=== PATIENT | male | born 1955 | race Caucasian/White ===

== ENCOUNTER 2016-10-21 20:59 | Emergency (ER) | payer OTHER ==
[~2016-10-21] VITALS: Ht 167.6 cm; Wt 118.6 kg
[~2016-10-21 20:59] MED LIST: IBUP-1050 PO; OFLO0.3D4 OTR
[2016-10-21 21:02] VITALS: TEMP 36.9; Ht 167.6 cm; Wt 118.6 kg
[2016-10-21] MEDS ORDERED: ALBUT/IPRATROP 3MG/0.5MG NEB 3 ML VIAL INH STA (21:58)
--- NOTE | 2016-10-21 21:59 | EMERGENCY ROOM VISIT NOTE ---
History Report prepared by Griseldaibstephani: Wang Warren Under the Supervision of: Dr. Declan Sneed D.O. First contact with patient: 21:52 Chief Complaint: ILLNESS Stated Complaint: COUGH,CONGESTION,VOMITING, RIB PAIN History of Present Illness The patient is a 61 year old male who presents to the Emergency Room with complaints of persistent cough for the past five days. The cough produces green sputum. The patient has also been vomiting after coughing spells and he feels pain in his chest with coughing only. He he has not any changes in breathing. He felt warm all day today but did not record any specific temperatures. He denies diarrhea. The patient does not have history of pneumonia. He does not have any sick contacts. Source of History: patient Onset: five days ago Position: other (respiratory) Quality: other (productive cough) Timing: other (persistent) Associated Symptoms: + chest pain (from coughing), + vomiting (from coughing ), No SOB, No diarrhea Review of Systems See HPI for pertinent positives and negatives. A total of ten systems were reviewed and were otherwise negative. Past Medical & Surgical Medical Problems: (1) ASTHMA, UNSPECIFIED (2) Chronic serous OM (otitis media) (3) ESOPHAGEAL REFLUX (4) HYPERLIPIDEMIA NEC/NOS (5) HYPERTENSION NOS (6) LUMBAR DISC DISPLACEMENT (7) LUMBOSACRAL SPONDYLOSIS Family History Diabetes mellitus Hypertension Social History Smoking Status: Never Smoker Alcohol Use: none Drug Use: none Marital Status: Housing Status: lives with family Occupation Status: unemployed Current/Historical Medications Scheduled Ibuprofen (Advil), 400 MG PO PRN Ofloxacin (Otic) (Floxin Otic), 5 DROPS OTR BID Allergies Coded Allergies: No Known Allergies (Verified , 02/16/16) Physical Exam Vital Signs Date Time Temp Pulse Resp B/P Pulse Ox O2 Delivery O2 Flow Rate FiO2 10/21/16 22:10 66 20 176/91 93 Room Air 10/21/16 21:02 36.9 75 18 183/88 96 Room Air Physical Exam GENERAL: Awake, alert, well-appearing, in no distress HENT: Normocephalic, atraumatic. Oropharynx unremarkable. EYES: Normal conjunctiva. Sclera non-icteric. NECK: Supple. No nuchal rigidity. FROM. No JVD. RESPIRATORY: Clear to auscultation. CARDIAC: Regular rate, normal rhythm. Extremities warm and well perfused. Pulses equal. ABDOMEN: Soft, non-distended. No tenderness to palpation. No rebound or guarding. No masses. RECTAL: Deferred. MUSCULOSKELETAL: Chest examination reveals no tenderness. The back is symmetrical on inspection without obvious abnormality. There is no CVA tenderness to palpation. No joint edema. LOWER EXTREMITIES: Calves are equal size bilaterally and non-tender. No edema. No discoloration. NEURO: Normal sensorium. No sensory or motor deficits noted. SKIN: No rash or jaundice noted. Medical Decision & Procedures ER Provider Diagnostic Interpretation: X-ray: Per my interpretation, radiologist's interpretation. CHEST ONE VIEW PORTABLE CLINICAL HISTORY: sob dyspnea COMPARISON STUDY: 06/25/2015 FINDINGS: Mild cardia megaly. Lungs are clear. Diaphragms are smooth. IMPRESSION: Mild cardiac enlargement. Otherwise negative study Electronically signed by: Jesus Jessica M.D. 10/21/2016 10:21 PM Dictated Date/Time: 10/21/2016 10:20 PM Medications Administered Medications (Trade) Dose Ordered Sig/Elliot Route Start Time Stop Time Status Last Admin Dose Admin Albuterol/ Ipratropium (Duoneb) 3 ml NOW STAT INH 10/21/16 21:58 10/21/16 21:59 DC 10/21/16 21:58 3 ML ED Course 2153: The patient was evaluated in room A4b. A complete history and physical exam was performed. 2157: DuoNeb 3 ml INH. 2300: I reevaluated the patient. Discussed results and discharge instructions: He verbalized understanding and agreement. The patient is ready for discharge. Medical Decision Differential diagnosis includes bronchitis, upper respiratory tract infection, pneumonia, viral syndrome, allergies. Resting in no distress on repeat examination. Patient's chest x-rays negative for infiltrate. Patient is not hypoxic. I will treat the patient with albuterol MDI as well as Z-Torey. Impression Primary Impression: Acute bronchitis Scribe Attestation The scribe's documentation has been prepared under my direction and personally reviewed by me in its entirety. I confirm that the note above accurately reflects all work, treatment, procedures, and medical decision making performed by me. Departure Information Dispostion Home / Self-Care Prescriptions Azithromycin (Zithromax) 500 Mg Tab 500 MG PO DAILY, #6 TAB Prov: Declan Sneed, DO 10/21/16 Albuterol Hfa (VENTOLIN HFA) 200 Puffs/69951 Mcg Aers 2-4 PUFFS INH Q6H, #1 INHALER Prov: Declan Sneed, DO 10/21/16 Referrals Jesus Cornejo M.D. (PCP) Forms HOME CARE DOCUMENTATION FORM, IMPORTANT VISIT INFORMATION, WORK / SCHOOL INSTRUCTIONS Patient Instructions Bronchitis Acute, My [facility] Health Problem Qualifiers Primary Impression: Acute bronchitis Bronchitis organism: unspecified organism Qualified Codes: J20.9 - Acute bronchitis, unspecified
--- NOTE | 2016-10-21 22:22 | DIAGNOSTIC IMAGING REPORT ---
CHEST ONE VIEW PORTABLE CLINICAL HISTORY: sob dyspnea COMPARISON STUDY: 06/25/2015 FINDINGS: Mild cardia megaly. Lungs are clear. Diaphragms are smooth. IMPRESSION: Mild cardiac enlargement. Otherwise negative study Electronically signed by: Jesus Jessica M.D. 10/21/2016 10:21 PM Dictated Date/Time: 10/21/2016 10:20 PM
[2016-10-21] MEDS ORDERED: PERCOCET HOME PACK PO ONE (22:30)
[2016-10-21] MEDS ORDERED: VNTHFA/IN INH (22:51)
[2016-10-21] MEDS ORDERED: AZIT500T26 PO (22:51)
[2016-10-21 22:58] VITALS: BP 157/88; PULSE 79; O2SAT 95
[2016-10-22] MEDS ORDERED: TRIATAB3 PO (00:19)
[2016-10-22] MEDS ORDERED: CHOL1000 PO (00:21)
[2016-10-22] MEDS ORDERED: METH500T37 PO (00:22)
[2016-12-13] MEDS ORDERED: VITAMIN D3 PO (15:27)
[2017-02-20] MEDS ORDERED: ATOR-22 PO (00:18)
[2017-02-20] MEDS ORDERED: ASPI81TA28 PO (00:20)
[2017-02-20] MEDS ORDERED: LSN/10125 PO (15:27)
== END 2016-10-21 23:00 | disposition home or self-care (01) ==
LOC: C.EDB 21:00 → C.EDA 23:00
DX: J20.9 Acute bronchitis, unspecified (principal); J45.909 Unspecified asthma, uncomplicated; E78.5 Hyperlipidemia, unspecified; I10 Essential (primary) hypertension; Z83.3 Family history of diabetes mellitus; Z82.49 Family history of ischemic heart disease and other diseases of the circulatory system

== ENCOUNTER → 2016-12-14 | Day surgery (SDC) | payer OTHER ==
[2016-12-13 15:28] VITALS: Ht 167.6 cm; Wt 141.8 kg
[~2016-12-14] VITALS: Ht 167.6 cm; Wt 141.8 kg
[~2016-12-14] MED LIST changes: +AMOX875T3 PO; +ASPI81TA28 PO; +ATOR-22 PO; +CHOL1000 PO; -IBUP-1050 PO; +KETAMINE HCL INJ 50 MG/ML 10 ML VIAL ONE; +LIDOCAINE HCL 2% 2 ML VIAL (20MG/ML) ONE; +LSN/10125 PO; +METH500T37 PO; +MIDAZOLAM HCL 1 MG/ML 2ML VIAL ONE; -OFLO0.3D4 OTR; +PROPOFOL IV EMULSION 10 MG/ML 20 ML VIAL IV ONE; +PRVHFAIN INH; +SODIUM CHLORIDE 0.9% 500ML 500 ML IV ONE; +VITAMIN D3 PO
[2016-12-14 08:37] VITALS: TEMP 36.5
--- NOTE | 2016-12-14 08:56 | Endo History and Physical ---
History & Physical Date of Service: Dec 14, 2016. Chief Complaint: ABD PAIN Referring Physician: DR SARMIENTO History of Present Illness abd pain; family history of colon cancer Past Medical History Sleep Apnea Past Surgical History Hx Cardiac Surgery: Yes (CARDIAC CATH-NO STENT-2005) Hx Internal Defibrillator: No Hx Pacemaker: No Hx Abdominal Surgery: No Hx of Implantable Prosthesis: No Hx Post-Op Nausea and Vomiting: No Hx Cancer Surgery: No Hx Thoracic Surgery: No Hx Orthopedic: Yes (LUMBAR FUSION-2009, L KNEE SCOPE 2014) Hx Urinary Tract Surgery: No Family History Colon CA, Polyp Social History Smoking Status: Never Smoker Hx Substance Use: No Hx Alcohol Use: Yes (RARELY) Allergies Coded Allergies: No Known Allergies (Verified , 12/14/16) Current Medications Reported Home Medications Medications Dose Route/Sig Max Daily Dose Days Date Category [Vitamin D3] 1 Tab PO QAM 12/13/16 Reported Lisinopril/Hctz 10/12.5 Mg (HCTZ/Lisinopril) 1 Ea Tab 1 Tab PO QAM 12/13/16 Reported Robaxin (Methocarbamol) 500 Mg Tab 500 Mg PO TID PRN 10/22/16 Reported Aspirin Ec (Aspirin) 81 Mg Tab 81 Mg PO QAM 10/22/16 Reported Lipitor (Atorvastatin Calcium) 20 Mg Tab 20 Mg PO QAM 10/22/16 Reported Vital Signs Weight (Kilograms): 141.82 Height (Feet): 5 Height (Inches): 6 Date Time Temp Pulse Resp B/P (MAP) Pulse Ox O2 Delivery O2 Flow Rate FiO2 12/14/16 08:37 36.5 61 18 136/74 (94) 97 Room Air Physical Exam General Appearance: WD/WN, no apparent distress Assessment and Plan EGD and colonoscopy today
--- NOTE | 2016-12-14 09:21 | Discharge Instructions ---
Endoscopy Patient Instructions Date / Procedure(s) Performed Dec 14, 2016. Colonoscopy, EGD Allergy Information Coded Allergies: No Known Allergies (Verified , 12/14/16) Discharge Date / Findings Dec 14, 2016. normal EGD and colonoscopy Medication Instructions Stopped Medication(s): ASPIRIN 81MG-12/12/16 Restart Stopped Medication(s): OK to resume all home medications as above Provider Instructions Activity Restrictions - No exercising or heavy lifting for 24 hours. - Do not drink alcohol the day of the procedure. - Do not drive a car or operate machinery until the day after the procedure. - Do not make any important decisions or sign important papers in 24 hours after the procedure. Following Day: - Return to full activity which may include returning to work/school. Diet Start your diet with liquids and light foods (jello, soup, juice, toast). Then eat your usual diet if not nauseated. Treatment For Common After Affects For mild abdominal pain, bloating, or excessive gas: - Rest - Eat lightly - Lie on right side Follow-Up Information Follow-up with DR SARMIENTO as scheduled Anesthesia Information What You Should Know You have had a procedure that required some medicine to reduce anxiety and discomfort. This treatment is called moderate sedation. After receiving the treatment, you may be sleepy, but you will be able to breathe on your own. The effects of the treatment may last for several hours. Follow these instructions along with Activity/Diet recommendations noted above: * Do NOT do anything where dizziness or clumsiness would be dangerous. * Rest quietly at home today, then you can be up and about tomorrow. * Have a responsible person stay with you the rest of today. * You may have had an I.V. today. If so, you may take the dressing off later today. Recommendations Call your doctor if: * Trouble breathing * Continuous vomiting for more than 24 hours * Temperature above 101 degrees * Severe abdominal pain or bloating * Pain not relieved by pain medicine ordered * There is increased drainage or redness from any incision * A large amount of rectal bleeding greater than 2-3 tablespoons. (If you had a polyp/s removed or have hemorrhoids, a small amount of blood - from the rectum is to be expected.) * You have any unanswered questions or concerns. IN THE EVENT OF A SERIOUS EMERGENCY, GO TO THE NEAREST EMERGENCY ROOM Your discharge instructions were prepared by provider Mi Rich. Patient Instructions Signature Page Cole Canas Patient (or Guardian) Signature/Date: I have read and understand the instructions given to me by my caregivers. Caregiver/RN/Doctor Signature/Date: The above-named patient and/or guardian has received patient instructions on this date. + Original Patient Signature Page (only) stays with chart. Please make copy for patient.
--- NOTE | 2016-12-14 09:24 | GI REPORT ---
Procedure Date: 12/14/2016 9:01 AM Procedure: Upper GI endoscopy Indications: Upper abdominal pain Medicines: Propofol per Anesthesia Complications: No immediate complications. Estimated blood loss: None. Estimated Blood Loss: Estimated blood loss: none. Procedure: Pre-Anesthesia Assessment: - Prior to the procedure, a History and Physical was performed, and patient medications, allergies and sensitivities were reviewed. The patient's tolerance of previous anesthesia was reviewed. - The risks and benefits of the procedure and the sedation options and risks were discussed with the patient. All questions were answered and informed consent was obtained. - Patient identification and proposed procedure were verified prior to the procedure by the physician and the nurse. The procedure was verified in the pre-procedure area in the procedure room. - Mental Status Examination: alert and oriented. Airway Examination: normal oropharyngeal airway and neck mobility. Respiratory Examination: clear to auscultation. CV Examination: normal. Abdominal Examination: bowel sounds present, abdomen soft and non-tender, no masses or organomegaly noted. - ASA Grade Assessment: III - A patient with severe systemic disease. After obtaining informed consent, the endoscope was passed under direct vision. Throughout the procedure, the patient's blood pressure, pulse, and oxygen saturations were monitored continuously. The scope was introduced through the mouth, and advanced to the second part of duodenum. The upper GI endoscopy was accomplished without difficulty. The patient tolerated the procedure well. Findings: The esophagus was normal. The stomach was normal. The examined duodenum was normal. Impression: - Normal esophagus. - Normal stomach. - Normal examined duodenum. - No specimens collected. Recommendation: - Perform a colonoscopy today. Mi Rich D.O. Mi Rich, 12/14/2016 9:24:11 AM This report has been signed electronically. Note Initiated On: 12/14/2016 9:01 AM I attest to the content of the Intraoperative Record and orders documented therein, exceptions below
--- NOTE | 2016-12-14 09:26 | GI REPORT ---
Procedure Date: 12/14/2016 9:07 AM Procedure: Colonoscopy Indications: Screening in patient at increased risk: Colorectal cancer in father 60 or older, Incidental - Generalized abdominal pain Medicines: Propofol per Anesthesia Complications: No immediate complications. Estimated blood loss: None. Estimated Blood Loss: Estimated blood loss: none. Procedure: Pre-Anesthesia Assessment: - Prior to the procedure, a History and Physical was performed, and patient medications, allergies and sensitivities were reviewed. The patient's tolerance of previous anesthesia was reviewed. - The risks and benefits of the procedure and the sedation options and risks were discussed with the patient. All questions were answered and informed consent was obtained. - Patient identification and proposed procedure were verified prior to the procedure by the physician and the nurse. The procedure was verified in the pre-procedure area in the procedure room. - Mental Status Examination: alert and oriented. Airway Examination: normal oropharyngeal airway and neck mobility. Respiratory Examination: clear to auscultation. CV Examination: normal. Abdominal Examination: bowel sounds present, abdomen soft and non-tender, no masses or organomegaly noted. - ASA Grade Assessment: III - A patient with severe systemic disease. After I obtained informed consent, the scope was passed under direct vision. Throughout the procedure, the patient's blood pressure, pulse, and oxygen saturations were monitored continuously. The scope was introduced through the anus and advanced to the terminal ileum. The colonoscopy was performed without difficulty. The patient tolerated the procedure well. The quality of the bowel preparation was good. Findings: The perianal and digital rectal examinations were normal. Pertinent negatives include normal sphincter tone and no palpable rectal lesions. The terminal ileum appeared normal. The entire examined colon appeared normal on direct and retroflexion views. Impression: - The examined portion of the ileum was normal. - The entire examined colon is normal on direct and retroflexion views. - No specimens collected. Recommendation: - Repeat colonoscopy in 5 years for screening purposes. - Return to referring physician as previously scheduled. - Discharge patient to home. Mi Rich D.O. Mi Rich DO 12/14/2016 9:26:08 AM This report has been signed electronically. Note Initiated On: 12/14/2016 9:07 AM I attest to the content of the Intraoperative Record and orders documented therein, exceptions below
--- NOTE | 2016-12-14 09:30 | Anesthesiology Progress Note ---
Anesthesia Post Op Note Date & Time Dec 14, 2016 at 09:30 Vital Signs Pain Intensity: 0 Vital Signs Past 12 Hours Date Time Temp Pulse Resp B/P (MAP) Pulse Ox O2 Delivery O2 Flow Rate FiO2 12/14/16 08:37 36.5 61 18 136/74 (94) 97 Room Air Notes Mental Status: alert / awake / arousable, participated in evaluation Pt Amnestic to Procedure: Yes Nausea / Vomiting: adequately controlled Pain: adequately controlled Airway Patency, RR, SpO2: stable & adequate BP & HR: stable & adequate Hydration State: stable & adequate Anesthetic Complications: no major complications apparent
[2016-12-14 09:55] VITALS: BP 156/89; PULSE 57; O2SAT 97
== END | disposition home or self-care (01) ==
LOC: C.GI 07:37
PROVIDERS: ATTEND Internal Medicine
DX: Z12.11 Encounter for screening for malignant neoplasm of colon (principal); Z80.0 Family history of malignant neoplasm of digestive organs; R10.10 Upper abdominal pain, unspecified; G47.30 Sleep apnea, unspecified; Z79.82 Long term (current) use of aspirin; Z79.899 Other long term (current) drug therapy
CPT/HCPCS: 43235; G0105

== ENCOUNTER 2017-02-20 16:28 | Inpatient (IN) | payer OTHER ==
[~2017-02-20] VITALS: Ht 167.6 cm; Wt 136.3 kg
[~2017-02-20 16:28] MED LIST changes: -AMOX875T3 PO; -CHOL1000 PO; -KETAMINE HCL INJ 50 MG/ML 10 ML VIAL ONE; -LIDOCAINE HCL 2% 2 ML VIAL (20MG/ML) ONE; -MIDAZOLAM HCL 1 MG/ML 2ML VIAL ONE; -PROPOFOL IV EMULSION 10 MG/ML 20 ML VIAL IV ONE; -PRVHFAIN INH; -SODIUM CHLORIDE 0.9% 500ML 500 ML IV ONE
[2017-02-20] MEDS ORDERED: SODIUM CHLORIDE 0.9% 1000ML 1,000 ML IV STA ×2 (16:50→18:04)
[2017-02-20 17:11] LABS: BASO % 0.3 %; BASO ABS # 0.03 K/uL (0-0.2); COMPLETE YES; IG% 0.3 %; LYMPH % 12.9 %; LYMPH ABS # 1.35 K/uL (1.2-3.4); MEAN CELL VOLUME 88.4 fL (80-100); MEAN CORPUSCULAR HEMOGLOBIN 28.3 pg (25-34); MEAN PLATELET VOLUME 10.9 fL (7.4-10.4); MONO % 8.8 %; NEUT % 75.7 %; PLATELET COUNT 219 K/uL (130-400); RED BLOOD COUNT 5.09 M/uL (4.7-6.1)
[2017-02-20] MEDS ORDERED: PRVHFAIN INH (17:14)
[2017-02-20] MEDS ORDERED: CHOL1000 PO (17:14)
[2017-02-20] MEDS ORDERED: AMOX875T3 PO (17:14)
[2017-02-20 17:18] LABS: POINT OF CARE TROPONIN I < 0.030 ng/ml (0-0.045)
[2017-02-20 17:24] LABS: BUN/CREATININE RATIO 11.4 (10-20); CALCIUM 10.4 mg/dl (8.5-10.1); CREATININE 2.6 mg/dl (0.60-1.40); POTASSIUM 3.9 mmol/L (3.5-5.1)
[2017-02-20 17:27] LABS: ALB/GLOB RATIO 0.8 (0.9-2)
[2017-02-20] MEDS ORDERED: OPTIRAY 320 IV PRN (17:30)
--- NOTE | 2017-02-20 17:59 | DIAGNOSTIC IMAGING REPORT ---
CHEST ONE VIEW PORTABLE CLINICAL HISTORY: cough, sob dyspnea COMPARISON STUDY: 10/21/2016 FINDINGS: Mild stable cardiomegaly. Lungs are clear. Diaphragms are smooth. IMPRESSION: Mild stable cardia megaly. Lungs are clear. The above report was generated using voice recognition software. It may contain grammatical, syntax or spelling errors. Electronically signed by: Jesus Jessica M.D. 02/20/2017 5:57 PM Dictated Date/Time: 02/20/2017 5:57 PM
[2017-02-20] MEDS ORDERED: NITROGLYCERIN 0.4 MG SL PER TAB CHARGE SL PRN (20:30)
[2017-02-20] MEDS ORDERED: ONDANSETRON INJ 2 MG/ML 2 ML VIAL IV PRN (20:30)
[2017-02-20] MEDS ORDERED: ACETAMINOPHEN 325 MG TAB PO PRN (20:30)
--- NOTE | 2017-02-20 20:30 | History and Physical ---
History & Physical Date & Time of Service: Feb 20, 2017 at 20:30 . Chief Complaint: cough, chest pain, weakness . Primary Care Physician: Jesus Cornejo M.D. . History of Present Illness Source: patient, clinic records, hospital records 62 [address]O male followed by Dr[address] Cornejo. History of hypertension, dyslipidemia, and other problems noted below. 3 days prior to admission developed, fever, chills, frontal headache, pharyngitis, cough productive of yellow sputum. Seen at [facility] and prescribed amoxicillin. Pharyngitis and cough improved. [place] weaker today; experienced lightheadedness and some blurred vision. Also noted some bilateral anterior chest pain (migrated from one side to the other), not pleuritic in nature. 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 Experiencing some dyspnea on exertion. . Past Medical/Surgical History Medical Problems: (3) ESOPHAGEAL REFLUX Status: Chronic (4) HYPERLIPIDEMIA NEC/NOS Status: Chronic (5) HYPERTENSION NOS Status: Chronic (6) LUMBAR DISC DISPLACEMENT Status: Resolved (7) LUMBOSACRAL SPONDYLOSIS Status: Chronic . Family History FATHER Cancer MOTHER Colon cancer Coronary artery disease SISTER Coronary artery disease DAUGHTER Colon cancer Social History Smoking Status: Never Smoker Alcohol Use: occasionally Drug Use: none Marital Status: Housing status: lives alone Occupational Status: unemployed Immunizations History of Influenza Vaccine: No History of Tetanus Vaccine?: Yes History of Pneumococcal: No History of Hepatitis B Vaccine: No Multi-Drug Resistant Organisms History of MDRO: No Allergies Coded Allergies: No Known Allergies (Verified , 12/14/16) Home Medications Scheduled Amoxicillin (Amoxil), 875 MG PO BID Aspirin (Aspirin Ec), 81 MG PO QAM Atorvastatin (Lipitor), 20 MG PO QAM Cholecalciferol (Vitamin D3), 1,000 INTER.UNIT PO DAILY Hctz/Lisinopril (Lisinopril/Hctz 10/12.5 Mg), 1 TAB PO QAM Scheduled PRN Albuterol (Ventolin Hfa), 2 PUFFS INH Q4H PRN for Cough Review of Systems Constitutional: + fever, No weight loss Eyes: + problem reported (blurred vision today) ENT: + problem reported (per HPI) Respiratory: + problem reported (per HPI) Cardiovascular: + problem reported (per HPI) Abdomen: + nausea, No pain, No vomiting, No diarrhea, No GI bleeding Musculoskeletal: No joint pain, No muscle pain Genitourinary - Male: No hematuria, No dysuria Endocrine: + fatigue, No excessive thirst, No excessive urination Hematologic / Lymphatic: No abnormal bleeding/bruising Integumentary: No rash, No new/changing skin lesions Physical Exam Vital Signs Date Time Temp Pulse Resp B/P (MAP) Pulse Ox O2 Delivery O2 Flow Rate FiO2 02/20/17 19:58 71 20 122/63 98 Room Air 02/20/17 18:14 77 18 138/70 95 Room Air 02/20/17 16:40 96 Room Air 02/20/17 16:36 36.5 111 18 118/73 96 Room Air General Appearance: WD/WN, no apparent distress Head: normocephalic, atraumatic Eyes: normal inspection, PERRL, EOMI, sclerae normal, + pertinent finding ( conjunctivae pink) ENT: normal ENT inspection, hearing grossly normal, pharynx normal Neck: supple, no adenopathy, thyroid normal, no JVD, trachea midline Respiratory/Chest: no respiratory distress, no accessory muscle use, + wheezing (diffuse, mild) Cardiovascular: regular rate, rhythm, no edema, no gallop, no JVD, no murmur Abdomen/GI: normal bowel sounds, non tender, soft, no organomegaly, no pulsatile mass Extremities/Musculoskelatal: normal inspection, no calf tenderness, no pedal edema, + pertinent finding (motor strength upper and lower extremites intact) 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 (PERRL, EOMI, no facial palsy, no dysarthria), no motor/sensory deficits (motor strength upper and lower extremites intact), alert, normal mood/affect, oriented x 3 Skin: normal color, warm/dry, no rash Lymphatic: no adenopathy (cervical) Diagnostics Laboratory Results Results Past 24 Hours Test 02/20/17 17:00 Range/Units White Blood Count 10.50 4.8-10.8 K/uL Red Blood Count 5.09 4.7-6.1 M/uL Hemoglobin 14.4 14.0-18.0 g/dL Hematocrit 45.0 42-52 % Mean Corpuscular Volume 88.4 80-100 fL Mean Corpuscular Hemoglobin 28.3 25-34 pg Mean Corpuscular Hemoglobin Concent 32.0 32-36 g/dl Platelet Count 219 130-400 K/uL Mean Platelet Volume 10.9 7.4-10.4 fL Neutrophils (%) (Auto) 75.7 % Lymphocytes (%) (Auto) 12.9 % Monocytes (%) (Auto) 8.8 % Eosinophils (%) (Auto) 2.0 % Basophils (%) (Auto) 0.3 % Neutrophils # (Auto) 7.96 1.4-6.5 K/uL Lymphocytes # (Auto) 1.35 1.2-3.4 K/uL Monocytes # (Auto) 0.92 0.11-0.59 K/uL Eosinophils # (Auto) 0.21 0-0.5 K/uL Basophils # (Auto) 0.03 0-0.2 K/uL RDW Standard Deviation 43.8 36.4-46.3 fL RDW Coefficient of Variation 13.5 11.5-14.5 % Immature Granulocyte % (Auto) 0.3 % Immature Granulocyte # (Auto) 0.03 0.00-0.02 K/uL Bedside D-Dimer > 450 0-450 ng/mlFEU Sodium Level 138 136-145 mmol/L Potassium Level 3.9 3.5-5.1 mmol/L Chloride Level 101 98-107 mmol/L Carbon Dioxide Level 30 21-32 mmol/L Anion Gap 7.0 3-11 mmol/L Blood Urea Nitrogen 30 7-18 mg/dl Creatinine 2.60 0.60-1.40 mg/dl Est Creatinine Clear Calc Drug Dose 38.4 ml/min Estimated GFR () 29.3 Estimated GFR (Non- 25.3 BUN/Creatinine Ratio 11.4 10-20 Random Glucose 115 70-99 mg/dl Calcium Level 10.4 8.5-10.1 mg/dl Total Bilirubin 0.9 0.2-1 mg/dl Aspartate Amino Transf (AST/SGOT) 17 15-37 U/L Alanine Aminotransferase (ALT/SGPT) 19 12-78 U/L Alkaline Phosphatase 108 45-117 U/L Bedside Troponin I < 0.030 0-0.045 ng/ml Total Protein 8.4 6.4-8.2 gm/dl Albumin 3.8 3.4-5.0 gm/dl Globulin 4.6 2.5-4.0 gm/dl Albumin/Globulin Ratio 0.8 0.9-2 Influenza Type A Antigen Neg for Influ A NEG Influenza Type B Antigen Neg for Influ B NEG Diagnostic Radiology Chest x-ray reviewed by the undersigned and formally read by Radiology: CHEST ONE VIEW PORTABLE FINDINGS: Mild stable cardiomegaly. Lungs are clear. Diaphragms are smooth. IMPRESSION: Mild stable cardia megaly. Lungs are clear. The above report was generated using voice recognition software. It may contain grammatical, syntax or spelling errors. Electronically signed by: Jesus Jessica M.D. 02/20/2017 5:57 PM Dictated Date/Time: 02/20/2017 5:57 PM . EKG EKG performed at 16:[address] at 104 / minute, no acute ST or T-wave abnormalities. . Impression Assessment and Plan CHEST PAIN Suspect chest-wall musculoskeletal pain due to coughing. Serum troponin normal. No acute EKG changes. D-dimer is elevated as discussed below. Check serial troponin's and EKG's. Further evaluation / consultation as indicated if ongoing concerns. ELEVATED D-DIMER D-dimer elevated in ED. Oxygenating well; hemodynamically stable. Relatively low suspicion for pulmonary embolism, but will check venous duplex lower extremities and VQ scan. ACUTE KIDNEY INJURY Serum creatinine 2.6, compared to baseline of 1.2 on 01/26/16. Suspect acute kidney injury secondary to dehydration. IV fluids. Hold lisinopril / HCTZ. Avoid potential nephrotoxins. Follow. COUGH No infiltrates on chest x-ray. Probable sinobronchitis. Improving on amoxicillin; continue same. HYPERTENSION Hold lisinopril / HCTZ in light of JAI. Follow and titrate Rx. VTE PROPHYLAXIS SQ heparin. Ambulate. RESUSCITATION STATUS Discussed with patient. No living will. Full code. DISPOSITION Admit to Telemetry Unit. Anticipated length of stay > 2 midnights. Expected discharge to home. Family Medicine follow-up with Dr. Cornejo. . VTE Prophylaxis VTE Risk Assessment Done? Y/N: Yes Risk Level: Moderate Given or contraindicated: Unfractionated heparin SQ
[2017-02-20 22:20] VITALS: BP 136/76; PULSE 20; PULSE 68; TEMP 36.6; O2SAT 94; Ht 167.6 cm; Wt 136.3 kg
--- NOTE | 2017-02-20 22:41 | EMERGENCY ROOM VISIT NOTE ---
History First contact with patient: 16:40 Chief Complaint: COUGH Stated Complaint: ACUTE KIDNEY INJURY, CHEST PAIN Nursing Triage Summary: Pt c/o cough, SOB, chest spasms, since . Seen at [facility] and placed on Amoxicillin. Not improving. Blurred vision for the last 2 days, on and off. "It's when I get weak". Pt reports his sister was recently sick with the flu. History of Present Illness The patient is a 62 year old male who presents to the Emergency Room with complaints of cough, chest pain and weakness. The patient states that he has had cough and shortness of breath for the past 5 days. He was seen at an urgent care over the weekend and prescribed amoxicillin or his symptoms. He states that his symptoms are not improving. The chest pains have been intermittent and alternating from the left and right side. The patient states that he has felt generally weak over the past 2 days and has had a few episodes of blurred vision. The patient is short of breath. He states that his sister recently had the flu. The patient reports a history of hypertension but states he is otherwise healthy. He denies any history of diabetes or heart disease. He does not smoke. He denies any fevers/chills. No abdominal pain or urinary symptoms. Review of Systems A complete 10 point review of systems was reviewed with the patient with pertinent positives and negatives as per history of present illness. All else were negative. Past Medical/Surgical History Medical Problems: (1) Acute kidney injury (2) ASTHMA, UNSPECIFIED (3) Chest pain (4) Chronic serous OM (otitis media) (5) ESOPHAGEAL REFLUX (6) HYPERLIPIDEMIA NEC/NOS (7) HYPERTENSION NOS (8) LUMBAR DISC DISPLACEMENT (9) LUMBOSACRAL SPONDYLOSIS Family History Diabetes mellitus Hypertension Social History Smoking Status: Never Smoker Alcohol Use: none Drug Use: none Marital Status: Housing Status: lives with family Occupation Status: unemployed Current/Historical Medications Scheduled Amoxicillin (Amoxil), 875 MG PO BID Aspirin (Aspirin Ec), 81 MG PO QAM Atorvastatin (Lipitor), 20 MG PO QAM Cholecalciferol (Vitamin D3), 1,000 INTER.UNIT PO DAILY Hctz/Lisinopril (Lisinopril/Hctz 10/12.5 Mg), 1 TAB PO QAM Scheduled PRN Albuterol (Ventolin Hfa), 2 PUFFS INH Q4H PRN for Cough Physical Exam Vital Signs Date Time Temp Pulse Resp B/P (MAP) Pulse Ox O2 Delivery O2 Flow Rate FiO2 02/20/17 19:58 71 20 122/63 98 Room Air 02/20/17 18:14 77 18 138/70 95 Room Air 02/20/17 16:40 96 Room Air 02/20/17 16:36 36.5 111 18 118/73 96 Room Air Pain Rating (0-10): 0 Physical Exam VITALS: Vitals are noted on the nurse's note and reviewed by myself. Vital signs stable. GENERAL: This is a 62-year-old male, in no acute distress, nondiaphoretic, well- developed well-nourished. SKIN: The skin was without rashes, erythema, edema, or bruising. EARS: External auditory canals clear, tympanic membranes pearly mcgowan without erythema or effusion bilaterally. EYES: Pupils equal round and reactive to light and accommodation. MOUTH: Mucous membranes slightly dry. NECK: Supple without nuchal rigidity. No lymphadenopathy. HEART: Regular rate and rhythm without murmurs gallops or rubs. LUNGS: Clear to auscultation bilaterally without wheezes, rales or rhonchi. ABDOMEN: Positive bowel sounds x 4. Soft, nontender to palpation. NEURO: Patient was alert and oriented to person place and time. Medical Decision & Procedures ER Provider Diagnostic Interpretation: CHEST ONE VIEW PORTABLE CLINICAL HISTORY: cough, sob dyspnea COMPARISON STUDY: 10/21/2016 FINDINGS: Mild stable cardiomegaly. Lungs are clear. Diaphragms are smooth. IMPRESSION: Mild stable cardia megaly. Lungs are clear. Laboratory Results 02/20/17 17:00 Red Blood Count 5.09, Mean Corpuscular Volume 88.4, Mean Corpuscular Hemoglobin 28.3, Mean Corpuscular Hemoglobin Concent 32.0, Mean Platelet Volume 10.9, Neutrophils (%) (Auto) 75.7, Lymphocytes (%) (Auto) 12.9, Monocytes (%) (Auto) 8.8, Eosinophils (%) (Auto) 2.0, Basophils (%) (Auto) 0.3, Neutrophils # (Auto) 7.96, Lymphocytes # (Auto) 1.35, Monocytes # (Auto) 0.92, Eosinophils # (Auto) 0.21, Basophils # (Auto) 0.03 02/20/17 17:00 Test 02/20/17 17:00 White Blood Count 10.50 K/uL (4.8-10.8) Red Blood Count 5.09 M/uL (4.7-6.1) Hemoglobin 14.4 g/dL (14.0-18.0) Hematocrit 45.0 % (42-52) Mean Corpuscular Volume 88.4 fL (80-100) Mean Corpuscular Hemoglobin 28.3 pg (25-34) Mean Corpuscular Hemoglobin Concent 32.0 g/dl (32-36) Platelet Count 219 K/uL (130-400) Mean Platelet Volume 10.9 fL (7.4-10.4) Neutrophils (%) (Auto) 75.7 % Lymphocytes (%) (Auto) 12.9 % Monocytes (%) (Auto) 8.8 % Eosinophils (%) (Auto) 2.0 % Basophils (%) (Auto) 0.3 % Neutrophils # (Auto) 7.96 K/uL (1.4-6.5) Lymphocytes # (Auto) 1.35 K/uL (1.2-3.4) Monocytes # (Auto) 0.92 K/uL (0.11-0.59) Eosinophils # (Auto) 0.21 K/uL (0-0.5) Basophils # (Auto) 0.03 K/uL (0-0.2) RDW Standard Deviation 43.8 fL (36.4-46.3) RDW Coefficient of Variation 13.5 % (11.5-14.5) Immature Granulocyte % (Auto) 0.3 % Immature Granulocyte # (Auto) 0.03 K/uL (0.00-0.02) Bedside D-Dimer > 450 ng/mlFEU (0-450) Anion Gap 7.0 mmol/L (3-11) Est Creatinine Clear Calc Drug Dose 38.4 ml/min Estimated GFR () 29.3 Estimated GFR (Non- 25.3 BUN/Creatinine Ratio 11.4 (10-20) Calcium Level 10.4 mg/dl (8.5-10.1) Total Bilirubin 0.9 mg/dl (0.2-1) Aspartate Amino Transf (AST/SGOT) 17 U/L (15-37) Alanine Aminotransferase (ALT/SGPT) 19 U/L (12-78) Alkaline Phosphatase 108 U/L (45-117) Bedside Troponin I < 0.030 ng/ml (0-0.045) Total Protein 8.4 gm/dl (6.4-8.2) Albumin 3.8 gm/dl (3.4-5.0) Globulin 4.6 gm/dl (2.5-4.0) Albumin/Globulin Ratio 0.8 (0.9-2) Influenza Type A Antigen Neg for Influ A (NEG) Influenza Type B Antigen Neg for Influ B (NEG) Medications Administered Medications (Trade) Dose Ordered Sig/Elliot Route Start Time Stop Time Status Last Admin Dose Admin Sodium Chloride 1,000 ml @ 999 mls/hr Q1H1M STAT IV 02/20/17 16:50 02/20/17 17:50 DC 02/20/17 17:05 999 MLS/HR Sodium Chloride 1,000 ml @ 999 mls/hr Q1H1M STAT IV 02/20/17 18:04 02/20/17 19:04 DC 02/20/17 18:04 999 MLS/HR ED Course The patient was evaluated as above. Labs were drawn and IV access was obtained. Patient was reevaluated and findings were discussed. He is agreeable to admission. Case was discussed with the [facility] hospitalist, Dr. Manley. They agreed to evaluate the patient for admission. Medical Decision Differential diagnosis includes pneumonia, ACS, pulmonary embolism, influenza, sepsis, electrolyte abnormality, among others. The patient is a 62-year-old male who presents today complaining of chest pain, weakness and blurred vision. Labs revealed no leukocytosis or concerning anemia. Creatinine was found to be elevated at 2.6, which is new for the patient. His baseline creatinine is around 1. BUN was elevated as well. This may be secondary to dehydration, but I do feel the patient needs admission for IV hydration and evaluation of acute kidney injury. Influenza testing was negative. Chest x-ray was unremarkable. Vital signs were within normal limits throughout his stay. D-dimer was slightly elevated. CT of the chest was not performed due to the patient's elevated creatinine. [facility]. Medication Reconcilliation Current Medication List: was personally reviewed by me Blood Pressure Screening Patient's blood pressure: Normal blood pressure Impression Primary Impression: Acute kidney injury Departure Information Dispostion Still a Patient Condition FAIR Referrals Jesus Cornejo M.D. (PCP) Forms HOME CARE DOCUMENTATION FORM, IMPORTANT VISIT INFORMATION Patient Instructions [facility]
[2017-02-20 23:40] LABS: INR 1.1 (0.9-1.1); PROTHROMBIN TIME (PATIENT) 11.3 SECONDS (9.0-12.0)
[2017-02-21] VITALS: BP 136/76; PULSE 78; TEMP 36.6; O2SAT 98
[2017-02-21 04:00] VITALS: O2SAT 98
[2017-02-21 04:06] VITALS: BP 112/64; PULSE 62; TEMP 36.5; O2SAT 95
[2017-02-21] MEDS ORDERED: ALBUTEROL HFA 8 GM INHALER INH PRN (06:15)
[2017-02-21 06:34] LABS: BLOOD UREA NITROGEN 24 mg/dl (7-18); BUN/CREATININE RATIO 18.4 (10-20); CALCIUM 9.2 mg/dl (8.5-10.1); CARBON DIOXIDE 33 mmol/L (21-32); CHLORIDE 105 mmol/L (98-107); CHOLESTEROL 95 mg/dl (0-200); CHOLESTEROL/HDL RATIO 3.5; GLUCOSE 108 mg/dl (70-99); HDL CHOLESTEROL 27 mg/dl; LDL CHOLESTEROL CALCULATED 53 mg/dl; POTASSIUM 3.8 mmol/L (3.5-5.1); SODIUM 142 mmol/L (136-145); TRIGLYCERIDES 73 mg/dl (0-150); VERY LOW DENSITY LIPOPROT CALC 15 mg/dl
[2017-02-21 07:18] VITALS: BP 108/66; PULSE 53; TEMP 36.6; O2SAT 94
[2017-02-21] MEDS: NSS + 20MEQ KCL 1000ML 1,000 ML IV SCH ×2 (07:20→16:25)
[2017-02-21] MEDS: AMOXICILLIN 500 MG CAP PO SCH ×2 (07:44→16:25)
[2017-02-21] MEDS ORDERED: ATORVASTATIN 20 MG TAB PO SCH (09:00)
[2017-02-21] MEDS ORDERED: HEPARIN SOD 5000 UNIT/0.5 ML CARP SQ SCH (09:00)
[2017-02-21] MEDS ORDERED: CHOLECALCIFEROL 1000 INTER.UNIT TAB PO SCH (09:00)
[2017-02-21] MEDS ORDERED: ASPIRIN 81 MG ECTAB PO SCH (09:00)
--- NOTE | 2017-02-21 09:38 | DIAGNOSTIC IMAGING REPORT ---
VENOUS DOPPLER LWR EXT BILA CLINICAL HISTORY: 62 years-old Male presenting with chest pain, elevated D-dimer. TECHNIQUE: Real-time grayscale and color and spectral Doppler ultrasound imaging of the veins of the bilateral lower extremities was performed. Compression and augmentation were also utilized. COMPARISON: 01/02/2015. FINDINGS: Right: Common femoral vein: Patent. Femoral vein: Patent. Greater saphenous vein: Patent. Popliteal vein: Patent. Calf veins: Patent. Left: Common femoral vein: Patent. Femoral vein: Patent. Greater saphenous vein: Patent. Popliteal vein: Patent. Calf veins: Patent. Other: None. IMPRESSION: No evidence of deep venous thrombosis. Electronically signed by: William Fine M.D. 02/21/2017 9:37 AM Dictated Date/Time: 02/21/2017 9:36 AM
--- NOTE | 2017-02-21 10:25 | DIAGNOSTIC IMAGING REPORT ---
NUCLEAR PULMONARY VENTILATION/PERFUSION SCAN CLINICAL HISTORY: Atypical chest pain. Elevated d-dimer. COMPARISON STUDY: Chest x-ray dated 02/20/2017. TECHNIQUE: Initially, ventilation images of both lungs are obtained following the inhalation of 33 mCi of aerosolized technetium 99m DTPA. Subsequently, perfusion images of both lungs were obtained following the IV administration of 5.5 mCi of technetium 99m MAA. Ventilation and perfusion images were acquired in the anterior, posterior, and oblique projections. FINDINGS: A chest x-ray performed 02/20/2017 shows mild cardiac enlargement. The lungs are clear. The ventilation of both lungs is normal and symmetric. Inhaled tracer is noted in the stomach. No perfusion defects are identified on the perfusion imaging. IMPRESSION: Findings are considered low probability for pulmonary embolus. Electronically signed by: Monty Rubio M.D. 02/21/2017 10:24 AM Dictated Date/Time: 02/21/2017 10:23 AM
--- NOTE | 2017-02-21 11:36 | Cardiology Consultation ---
Cardiology Consultation Date of Consultation: Feb 21, 2017 History of Present Illness Cole Canas is a 62 year old male seen in cardiology consultation per the request of Dr Estrada for the evaluation of chest pain. The patient's PCP is Dr Cornejo. The patient describes recent upper respiratory symptoms that started approximately 4 days ago with symptoms of sore throat, productive cough, and chest congestion. He was seen in urgent care center and apparently was prescribed medications including an antibiotic course. He was on the highway driving a few miles away from the hospital when he developed right-sided chest discomfort yesterday. It waxed and waned, and also migrated to the left side for a short interval of time. He simply presented to the emergency room where EKG revealed sinus rhythm and no significant ST changes. Cardiac enzymes have been negative 3 thus far. And repeat EKG this morning reveals sinus bradycardia with no significant ST changes. Acute renal insufficiency was noted on presentation last evening with creatinine of 2.6 mg/dL which has improved to 1.3 milligrams per deciliter with IV fluids. Ventilation perfusion scan was considered low probability for pulmonary embolus per the radiology report. Lower extremity venous duplex was negative for DVT. Past Medical/Surgical History Problem List: Medical Problems: (1) ASTHMA, UNSPECIFIED (2) ESOPHAGEAL REFLUX (3) HYPERLIPIDEMIA NEC/NOS (4) HYPERTENSION NOS (5) LUMBAR DISC DISPLACEMENT (6) LUMBOSACRAL SPONDYLOSIS History Social History: Nonsmoker Family History: Describes history of cardiac disease in his mother and father had details not well known by patient and he states his sister has a history of a pacemaker defibrillator. Review Of Systems See above for pertinent positives & negatives. A total of 10 systems reviewed and were otherwise negative. Allergies Coded Allergies: No Known Allergies (Verified , 12/14/16) Medications Reported Home Medications Medications Dose Route/Sig Max Daily Dose Days Date Category Dose Instructions Amoxil (Amoxicillin) 875 Mg Tab 875 Mg PO BID 10 02/20/17 Reported PRESCRIBED 02/18/2017, TAKE DIRECTED UNTIL GONE Ventolin Hfa (Albuterol) 60 Puffs/5400 Mcg Aers 2 Puffs INH Q4H PRN 02/20/17 Reported Vitamin D3 (Cholecalciferol) 1,000 Unit Tab 1,000 Inter.unit PO DAILY 02/20/17 Reported Lisinopril/Hctz 03/15.5 Mg (HCTZ/Lisinopril) 1 Ea Tab 1 Tab PO QAM 12/13/16 Reported Aspirin Ec (Aspirin) 81 Mg Tab 81 Mg PO QAM 10/22/16 Reported Lipitor (Atorvastatin Calcium) 20 Mg Tab 20 Mg PO QAM 10/22/16 Reported Physical Exam Vital Signs (Last 8hrs): Last 8 Hrs Date Time Temp Pulse Resp B/P (MAP) Pulse Ox O2 Delivery O2 Flow Rate FiO2 02/21/17 08:00 Room Air 02/21/17 07:18 36.6 53 18 108/66 (80) 94 02/21/17 04:06 36.5 62 18 112/64 (80) 95 Room Air 02/21/17 04:00 98 Room Air CPAP General Appearance: Alert and Oriented x3. NAD. Head: Normocephalic Atraumatic. Eyes: PERRLA, EOMI, conjunctiva and sclera clear Neck: Supple. No carotid bruits noted. No JVD. No HJD. Respiratory: Breath sounds clear to auscultation bilaterally. No w/r/r. Cardiovascular: Reg rate and rhythm. S1 and S2 noted. No murmurs, rubs, gallops. PMI non displace. Abdomen: Normal bowel sounds, soft nontender. no abdominal bruits. Extremities: No edema, no clubbing or cyanosis. distal pulses 2/4 bilaterally. Neuro: No focal deficits. Psychiatric: Normal affect. Data Last 24 Hours Test 02/20/17 17:00 02/20/17 23:17 02/21/17 05:33 White Blood Count 10.50 K/uL Red Blood Count 5.09 M/uL Hemoglobin 14.4 g/dL Hematocrit 45.0 % Mean Corpuscular Volume 88.4 fL Mean Corpuscular Hemoglobin 28.3 pg Mean Corpuscular Hemoglobin Concent 32.0 g/dl Platelet Count 219 K/uL Mean Platelet Volume 10.9 fL Neutrophils (%) (Auto) 75.7 % Lymphocytes (%) (Auto) 12.9 % Monocytes (%) (Auto) 8.8 % Eosinophils (%) (Auto) 2.0 % Basophils (%) (Auto) 0.3 % Neutrophils # (Auto) 7.96 K/uL Lymphocytes # (Auto) 1.35 K/uL Monocytes # (Auto) 0.92 K/uL Eosinophils # (Auto) 0.21 K/uL Basophils # (Auto) 0.03 K/uL RDW Standard Deviation 43.8 fL RDW Coefficient of Variation 13.5 % Immature Granulocyte % (Auto) 0.3 % Immature Granulocyte # (Auto) 0.03 K/uL Bedside D-Dimer > 450 ng/mlFEU Sodium Level 138 mmol/L 142 mmol/L Potassium Level 3.9 mmol/L 3.8 mmol/L Chloride Level 101 mmol/L 105 mmol/L Carbon Dioxide Level 30 mmol/L 33 mmol/L Anion Gap 7.0 mmol/L 4.0 mmol/L Blood Urea Nitrogen 30 mg/dl 24 mg/dl Creatinine 2.60 mg/dl 1.30 mg/dl Est Creatinine Clear Calc Drug Dose 38.4 ml/min 77.3 ml/min Estimated GFR () 29.3 67.8 Estimated GFR (Non- 25.3 58.5 BUN/Creatinine Ratio 11.4 18.4 Random Glucose 115 mg/dl 108 mg/dl Calcium Level 10.4 mg/dl 9.2 mg/dl Total Bilirubin 0.9 mg/dl Aspartate Amino Transf (AST/SGOT) 17 U/L Alanine Aminotransferase (ALT/SGPT) 19 U/L Alkaline Phosphatase 108 U/L Bedside Troponin I < 0.030 ng/ml Total Protein 8.4 gm/dl Albumin 3.8 gm/dl Globulin 4.6 gm/dl Albumin/Globulin Ratio 0.8 Influenza Type A Antigen Neg for Influ A Influenza Type B Antigen Neg for Influ B Prothrombin Time 11.3 SECONDS Prothromb Time International Ratio 1.1 Activated Partial Thromboplast Time 25.7 SECONDS Partial Thromboplastin Ratio 1.0 Troponin I < 0.015 ng/ml < 0.015 ng/ml Triglycerides Level 73 mg/dl Cholesterol Level 95 mg/dl HDL Cholesterol 27 mg/dl LDL Cholesterol, Calculated 53 mg/dl VLDL Cholesterol, Calculated 15 mg/dl Cholesterol/HDL Ratio 3.5 EKG findings as outlined above Assessment & Plan Impression: 62-year-old male 1. Chest discomfort, atypical for angina, however patient does have significant underlying cardiac risk factors of age, male sex, hypertension, dyslipidemia, and obesity. 2. History of obstructive sleep apnea for which she uses CPAP. 3. Family history ischemic heart disease Recommendations: The patient's presentation is consistent with musculoskeletal pain/chest wall pain related to his cough, however he does have significant cardiac risk factors. He is very concerned especially given his family history. Given his weight and decreased baseline activity tolerance, would recommend proceeding with dobutamine stress echocardiogram for further evaluation. I'm going to hold off on his lunch until the test is completed. Patient was agreeable.
[2017-02-21] MEDS ORDERED: DOBUTamine 500MG / 250ML D5W ONE (14:09)
[2017-02-21] MEDS ORDERED: METOPROLOL TARTRATE 1 MG/ML VIAL ONE (14:09)
[2017-02-21] MEDS ORDERED: ATROPINE SULFATE 0.1 MG/ML 5ML SYR ONE (14:09)
[2017-02-21] MEDS ORDERED: PERFLUTREN LIPID MICROSPHERE (DEFINITY) IV ONE (14:57)
--- NOTE | 2017-02-21 14:59 | Cardiology Progress Note ---
Cardiology Progress Note Date of Service Feb 21, 2017. Cardiology Progress Note Preliminary dobutamine stress echo report: full report to follow STRESS STUDY: Normal pharmacologic stress echocardiogram. No echocardiographic or ECG evidence of myocardial ischemia having achieved heart rate adequate for diagnostic purposes. Not symptoms suggestive of angina were induced. The heart rate and blood pressure responses to pharmacologic stress were normal. RESTNG STUDY: There is mild concentric left ventricular hypertrophy. The LV Ejection Fraction = 55-60%. Aortic valve sclerosis mild, without significant aortic valvular stenosis. Otherwise , there is no significant valvular heart disease. Recommendations: Non cardiac chest pain, likely chest wall pain from URI / cough. Continue home medications including ASA, atorvastatin, lisinopril / HCTZ. Stable for DC to home from cardiology perspective.
--- NOTE | 2017-02-21 14:59 | Progress Note ---
Internal Med Progress Note Date of Service: Feb 21, 2017. Provider Documentation: SUBJECTIVE: patient denies chest pain today. was admitted yesterday after 4 episodes of pain beneath right and left breast. pulmonary embolism and DVT ruled out. however because of cardiovascular risk factors, cardiology is to do dobutamine stress test. OBJECTIVE: General Appearance: no apparent distress, breathing on room air Head: normocephalic, atraumatic Eyes: normal inspection, PERRL ENT: normal ENT inspection, hearing grossly normal, pharynx normal Neck: supple, no adenopathy, thyroid normal, no JVD, trachea midline Respiratory/Chest: no respiratory distress, no accessory muscle use, no wheezing Cardiovascular: regular rate, rhythm, no edema, no gallop, no JVD, no murmur Abdomen/GI: normal bowel sounds, non tender, soft, no organomegaly, no pulsatile mass Extremities/Musculoskelatal: normal inspection, no calf tenderness, no pedal edema, 5/5 strength of extremities Neurologic/Psych: alert, normal mood/affect, oriented x 3, no neurological deficits Skin: normal color, warm/dry, no rash ASSESSMENT & PLAN: CHEST PAIN Serum troponin normal. No acute EKG changes. D-dimer is elevated as discussed below. may be musculoskeletal chest pain given recent history of coughing risk stratification for coronary artery disease with dobutamine stress echo cardiology service following the patient ELEVATED D-DIMER D-dimer elevated in ED. Oxygenating well; hemodynamically stable, on room air Venous duplex lower extremities with no DVT and VQ scan with no pulmonary embolism. ACUTE KIDNEY INJURY Serum creatinine 2.6 on admission compared to baseline of 1.2 on 01/26/16. Acute kidney injury secondary to dehydration, IV fluids have decreased creatinine to 1.3. may restart home dose lisinopril / HCTZ. Avoid potential nephrotoxins. COUGH No infiltrates on chest x-ray. likely sinobronchitis, continue home dosed amoxicillin HYPERTENSION JAI resolves and can restart lisinopril / HCTZ VTE PROPHYLAXIS SQ heparin. Ambulate. RESUSCITATION STATUS No living will. Full code. DISPOSITION will need Family Medicine follow-up with Dr. Cornejo when medically cleared Vital Signs: Date Time Temp Pulse Resp B/P (MAP) Pulse Ox O2 Delivery O2 Flow Rate FiO2 02/21/17 12:00 Room Air 02/21/17 08:00 Room Air 02/21/17 07:18 36.6 53 18 108/66 (80) 94 02/21/17 04:06 36.5 62 18 112/64 (80) 95 Room Air 02/21/17 04:00 98 Room Air CPAP 02/21/17 00:00 78 98 21 02/21/17 00:00 36.6 78 18 136/76 (96) 98 Room Air 02/21/17 00:00 98 Room Air CPAP 02/20/17 22:20 36.6 68 18 136/76 94 Room Air 02/20/17 21:13 74 22 137/63 94 02/20/17 19:58 71 20 122/63 98 Room Air 02/20/17 18:14 77 18 138/70 95 Room Air 02/20/17 16:40 96 Room Air 02/20/17 16:36 36.5 111 18 118/73 96 Room Air Lab Results: Results Past 24 Hours Test 02/20/17 17:00 02/20/17 23:17 02/21/17 05:33 Range/Units White Blood Count 10.50 4.8-10.8 K/uL Red Blood Count 5.09 4.7-6.1 M/uL Hemoglobin 14.4 14.0-18.0 g/dL Hematocrit 45.0 42-52 % Mean Corpuscular Volume 88.4 80-100 fL Mean Corpuscular Hemoglobin 28.3 25-34 pg Mean Corpuscular Hemoglobin Concent 32.0 32-36 g/dl Platelet Count 219 130-400 K/uL Mean Platelet Volume 10.9 7.4-10.4 fL Neutrophils (%) (Auto) 75.7 % Lymphocytes (%) (Auto) 12.9 % Monocytes (%) (Auto) 8.8 % Eosinophils (%) (Auto) 2.0 % Basophils (%) (Auto) 0.3 % Neutrophils # (Auto) 7.96 1.4-6.5 K/uL Lymphocytes # (Auto) 1.35 1.2-3.4 K/uL Monocytes # (Auto) 0.92 0.11-0.59 K/uL Eosinophils # (Auto) 0.21 0-0.5 K/uL Basophils # (Auto) 0.03 0-0.2 K/uL RDW Standard Deviation 43.8 36.4-46.3 fL RDW Coefficient of Variation 13.5 11.5-14.5 % Immature Granulocyte % (Auto) 0.3 % Immature Granulocyte # (Auto) 0.03 0.00-0.02 K/uL Bedside D-Dimer > 450 0-450 ng/mlFEU Sodium Level 138 142 136-145 mmol/L Potassium Level 3.9 3.8 3.5-5.1 mmol/L Chloride Level 101 105 98-107 mmol/L Carbon Dioxide Level 30 33 21-32 mmol/L Anion Gap 7.0 4.0 3-11 mmol/L Blood Urea Nitrogen 30 24 7-18 mg/dl Creatinine 2.60 1.30 0.60-1.40 mg/dl Est Creatinine Clear Calc Drug Dose 38.4 77.3 ml/min Estimated GFR () 29.3 67.8 Estimated GFR (Non- 25.3 58.5 BUN/Creatinine Ratio 11.4 18.4 10-20 Random Glucose 115 108 70-99 mg/dl Calcium Level 10.4 9.2 8.5-10.1 mg/dl Total Bilirubin 0.9 0.2-1 mg/dl Aspartate Amino Transf (AST/SGOT) 17 15-37 U/L Alanine Aminotransferase (ALT/SGPT) 19 12-78 U/L Alkaline Phosphatase 108 45-117 U/L Bedside Troponin I < 0.030 0-0.045 ng/ml Total Protein 8.4 6.4-8.2 gm/dl Albumin 3.8 3.4-5.0 gm/dl Globulin 4.6 2.5-4.0 gm/dl Albumin/Globulin Ratio 0.8 0.9-2 Influenza Type A Antigen Neg for Influ A NEG Influenza Type B Antigen Neg for Influ B NEG Prothrombin Time 11.3 9.0-12.0 SECONDS Prothromb Time International Ratio 1.1 0.9-1.1 Activated Partial Thromboplast Time 25.7 21.0-31.0 SECONDS Partial Thromboplastin Ratio 1.0 Troponin I < 0.015 < 0.015 0-0.045 ng/ml Triglycerides Level 73 0-150 mg/dl Cholesterol Level 95 0-200 mg/dl HDL Cholesterol 27 mg/dl LDL Cholesterol, Calculated 53 mg/dl VLDL Cholesterol, Calculated 15 mg/dl Cholesterol/HDL Ratio 3.5 Hepatitis C Antibody Screen NEG NEG
--- NOTE | 2017-02-21 15:15 | DOBUTAMINE ECHO ---
*NOTICE TO RECEIVING CONSTITUTION PARTY AGENCY This information is strictly Confidential and protected under [place] law. [place] law prohibits you from making any further disclosure of this information unless further disclosure is expressly permitted by the written consent of the person to whom it pertains or is authorized by law. A general authorization for the release of medical or other information is not sufficient for this purpose. Hospital accepts no responsibility if the information is made available to any other person, INCLUDING THE PATIENT. Interpretation Summary * Name: NOIEL PATEL Study Date: 02/21/2017 01:02 PM BP: 135/74 mmHg * Patient Location: [facility]\S\N281\S\2 HR: 60 * : 1955 (M/d/yyyy) Gender: Male Height: 66 in * Age: 62 yrs Ethnicity: [place] Weight: 300 lb * Ordering Physician: Gorge Aragon * Referring Physician: Self, Referred * Performed By: Carolina Cardozo RCS * * Reason For Study: Chest Pain * BSA: 2.4 m2 * -- Conclusions -- * The study was technically adequate. * STRESS STUDY: Normal pharmacologic stress echocardiogram. * No echocardiographic or ECG evidence of myocardial ischemia having achieved heart rate adequate for diagnostic purposes. * Not symptoms suggestive of angina were induced. * The heart rate and blood pressure responses to pharmacologic stress were normal. * RESTNG STUDY: * There is mild concentric left ventricular hypertrophy. * The LV Ejection Fraction = 55-60%. * Aortic valve sclerosis mild, without significant aortic valvular stenosis. * Othwerwise , there is no significant valvular heart disease. Procedure Details * DOBUTAMINE ECHO, CPT#04895 Left Ventricle * The left ventricle is normal in size. * There is mild concentric left ventricular hypertrophy. * Left ventricular systolic function is normal. * Ejection Fraction = 55-60%. * The left ventricular wall motion is normal at rest. * The left ventricular ejection fraction increases normally with stress. The left ventricular end-systolic cavity size reduces post-stress (normal response). The left ventricular wall motion with stress is normal. Right Ventricle * The right ventricle is normal in size and function. Atria * The left atrial size is normal. * Right atrial size is normal. * No ASD detected; PFO is not assessed. Mitral Valve * The mitral valve is normal. * There is no mitral valve stenosis. * Significant mitral regurgitation is absent. Tricuspid Valve * The tricuspid valve is normal. * There is no tricuspid stenosis. * Significant tricuspid regurgitation is absent. * Doppler findings do not suggest pulmonary hypertension. Aortic Valve * The aortic valve is trileaflet. * Aortic valve sclerosis mild, without significant aortic valvular stenosis. * Aortic stenosis is absent. * There is no significant aortic regurgitation. Pulmonic Valve * The pulmonary valve is not well seen, but the Doppler examination is normal without significant regurgitation or stenosis. Great Vessels * The aortic root and proximal ascending aorta are normal sized. Pericardium * There is no pericardial effusion. Stress Parameters * Normal baseline electrocardiogram. * The stress ECG response was normal * One isolated PVC was noted with dobutamine infusion. * The stress portion of this study was personally supervised by the undersigned interpreting physician. * Rest heart rate was '60' BPM. * Rest blood pressure was '135/74' * Maximum heart rate achieved was 136 bpm. * Maximum heart rate was 86 % of maximum age-predicted heart rate. * Maximum blood pressure was '173/66' * Maximum Dobutamine infusion rate was '40' mcg/kg/min. * Dobutamine infusion was terminated due to achieving target heart rate * A total of 5 mg of IV Metoprolol was administered to reverse Dobutamine-induced tachycardia. * The patient did not exhibit any symptoms during drug infusion. * Normal blood pressure response to exercise. Left Ventricular Diastolic Function * Diastolic dysfunction, Grade II (pseudonormalization pattern). MMode 2D Measurements and Calculations IVSd 1.1 cm IVSs 1.3 cm LVIDd 5.8 cm LVIDs 3.9 cm LVPWd 1.1 cm LVPWs 1.3 cm IVS/LVPW 0.97 FS 33.0 % EDV(Teich) 168.8 ml ESV(Teich) 66.2 ml EF(Teich) 60.8 % EDV(cubed) 198.6 ml ESV(cubed) 59.6 ml EF(cubed) 70.0 % % IVS thick 25.1 % % LVPW thick 19.3 % LV mass(C)d 263.5 grams LV mass(C)dI 110.9 grams/m\S\2 LV mass(C)s 186.7 grams LV mass(C)sI 78.6 grams/m\S\2 SV(Teich) 102.6 ml SI(Teich) 43.2 ml/m\S\2 SV(cubed) 138.9 ml SI(cubed) 58.5 ml/m\S\2 Ao root diam 4.0 cm Ao root area 12.3 cm\S\2 ACS 1.9 cm LA dimension 4.1 cm asc Aorta Diam 3.2 cm LA/Ao 1.0 Doppler Measurements and Calculations MV E max juventino 92.7 cm/sec MV A max juventino 71.7 cm/sec MV E/A 1.3 MV P1/2t max juventino 101.4 cm/sec MV P1/2t 87.5 msec MVA(P1/2t) 2.5 cm\S\2 MV dec slope 339.2 cm/sec\S\2 MV dec time 0.27 sec Ao V2 max 127.6 cm/sec Ao max PG 6.5 mmHg Ao max PG (full) 3.3 mmHg LV V1 max PG 3.3 mmHg LV V1 max 90.2 cm/sec PA V2 max 100.9 cm/sec PA max PG 4.1 mmHg TR max juventino 227.7 cm/sec
--- NOTE | 2017-02-21 16:51 | Discharge Instructions ---
Discharge Instructions Date of Service Feb 21, 2017. Admission Reason for Admission: Acute Kidney Injury, Chest Pain Discharge Discharge Diagnosis / Problem: atypical chest pain Discharge Goals Goal(s): Decrease discomfort Activity Recommendations Activity Limitations: resume your previous activity Lifting Limitations: gradually increase as tolerated Exercise/Sports Limitations: gradually increase as tolerated Shower/Bathe: no limitations . Instructions / Follow-Up Instructions / Follow-Up Patient was evaluated for Non cardiac chest pain, likely chest wall pain from URI / cough Patient was not found to have pulmonary embolism in the V/Q scan, was not found to have deep vein thrombosis in ultrasound of lower extremities, and was not found to be at risk for coronary artery disease based on dobutamine echo test Continue home medications including ASA, atorvastatin, lisinopril / HCTZ Follow up with your primary medical doctor Dr. Jenkins Current Hospital Diet Patient's current hospital diet: AHA Diet (Heart Healthy) Discharge Diet Recommended Diet: Regular Diet Pending Studies Studies pending at discharge: no Laboratory Results Lipid Panel Test 02/21/17 05:33 Range/Units Triglycerides Level 73 0-150 mg/dl Cholesterol Level 95 0-200 mg/dl HDL Cholesterol 27 mg/dl Cholesterol/HDL Ratio 3.5 LDL Cholesterol, Calculated 53 mg/dl Medical Emergencies . Who to Call and When: Medical Emergencies: If at any time you feel your situation is an emergency, please call 911 immediately. . Non-Emergent Contact Non-Emergency issues call your: Primary Care Provider Call Non-Emergent contact if: your pain is not controlled . . "Provider Documentation" section prepared by Sebastian Estrada. . VTE Core Measure Inpt VTE Proph given/why not?: Unfractionated heparin SQ
--- NOTE | 2017-02-21 16:57 | Discharge Summary ---
Discharge Summary Date of Service Feb 21, 2017. Discharge Summary Admission Date: Feb 20, 2017 at 20:28 Discharge Date: Feb 21, 2017 Discharge Disposition: Home Principal Diagnosis: atypical chest pain, non cardiac chest pain, musculoskeletal pain vs pleurodynia from upper respiratory infection Secondary Diagnoses/Problems: acute kidney injury resolved with IV fluids Procedures: V/Q scan/ ultrasound lower extremity, dobutamine stress test Consultations: cardiology Medication Reconciliation Continued Medications: Albuterol (Ventolin Hfa) 60 Puffs/5400 Mcg Aers 2 PUFFS INH Q4H PRN for Cough Amoxicillin (Amoxil) 875 Mg Tab 875 MG PO BID for 10 Days, #20 TAB PRESCRIBED 02/18/2017, TAKE DIRECTED UNTIL GONE Aspirin (Aspirin Ec) 81 Mg Tab 81 MG PO QAM Atorvastatin (Lipitor) 20 Mg Tab 20 MG PO QAM, TAB Cholecalciferol (Vitamin D3) 1,000 Unit Tab 1000 INTER.UNIT PO DAILY, TAB Hctz/Lisinopril (Lisinopril/Hctz 10/12.5 Mg) 1 Ea Tab 1 TAB PO QAM, TAB Admission Information HPI (per Admitting provider): 62 YO male followed by Dr. Cornejo. History of hypertension, dyslipidemia, and other problems noted below. 3 days prior to admission developed, fever, chills, frontal headache, pharyngitis, cough productive of yellow sputum. Seen at [facility] and prescribed amoxicillin. Pharyngitis and cough improved. Caraway weaker today; experienced lightheadedness and some blurred vision. Also noted some bilateral anterior chest pain (migrated from one side to the other), not pleuritic in nature. 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 Experiencing some dyspnea on exertion. . Physical Exam (per Admitting): General Appearance: WD/WN, no apparent distress Head: normocephalic, atraumatic Eyes: normal inspection, PERRL, EOMI, sclerae normal, + pertinent finding ( conjunctivae pink) ENT: normal ENT inspection, hearing grossly normal, pharynx normal Neck: supple, no adenopathy, thyroid normal, no JVD, trachea midline Respiratory/Chest: no respiratory distress, no accessory muscle use, + wheezing (diffuse, mild) Cardiovascular: regular rate, rhythm, no edema, no gallop, no JVD, no murmur Abdomen/GI: normal bowel sounds, non tender, soft, no organomegaly, no pulsatile mass Extremities/Musculoskelatal: normal inspection, no calf tenderness, no pedal edema, + pertinent finding (motor strength upper and lower extremites intact) Neurologic/Psych: chemical processor II-XII nml as tested (PERRL, EOMI, no facial palsy, no dysarthria), no motor/sensory deficits (motor strength upper and lower extremites intact), alert, normal mood/affect, oriented x 3 Skin: normal color, warm/dry, no rash Lymphatic: no adenopathy (cervical) Hospital Course CHEST PAIN Serum troponins normal. No acute EKG changes. D-dimer is elevated as discussed below. may be musculoskeletal chest pain given recent history of coughing risk stratification for coronary artery disease with dobutamine stress echo did not find evidence for valvular heart disease. DOBUTAMINE ECHO Left Ventricle The left ventricle is normal in size. There is mild concentric left ventricular hypertrophy. Left ventricular systolic function is normal. Ejection Fraction = 55-60%. The left ventricular wall motion is normal at rest. The left ventricular ejection fraction increases normally with stress. The left ventricular end-systolic cavity size reduces post-stress (normal response) . The left ventricular wall motion with stress is normal. Right Ventricle The right ventricle is normal in size and function. Atria The left atrial size is normal. Right atrial size is normal. No ASD detected; PFO is not assessed. Mitral Valve The mitral valve is normal. There is no mitral valve stenosis. Significant mitral regurgitation is absent. Tricuspid Valve The tricuspid valve is normal. There is no tricuspid stenosis. Significant tricuspid regurgitation is absent. Doppler findings do not suggest pulmonary hypertension. Aortic Valve The aortic valve is trileaflet. Aortic valve sclerosis mild, without significant aortic valvular stenosis. Aortic stenosis is absent. There is no significant aortic regurgitation. Pulmonic Valve The pulmonary valve is not well seen, but the Doppler examination is normal without significant regurgitation or stenosis. Great Vessels The aortic root and proximal ascending aorta are normal sized. Pericardium There is no pericardial effusion. Stress Parameters Normal baseline electrocardiogram. The stress ECG response was normal One isolated PVC was noted with dobutamine infusion. The stress portion of this study was personally supervised by the undersigned interpreting physician. Rest heart rate was '60' BPM. Rest blood pressure was '135/74' Maximum heart rate achieved was 136 bpm. Maximum heart rate was 86 % of maximum age-predicted heart rate. Maximum blood pressure was '173/66' Maximum Dobutamine infusion rate was '40' mcg/kg/min. Dobutamine infusion was terminated due to achieving target heart rate A total of 5 mg of IV Metoprolol was administered to reverse Dobutamine- induced tachycardia. The patient did not exhibit any symptoms during drug infusion. Normal blood pressure response to exercise. Left Ventricular Diastolic Function Diastolic dysfunction, Grade II (pseudonormalization pattern). ELEVATED D-DIMER D-dimer elevated in ED. Oxygenating well; hemodynamically stable, on room air Venous duplex lower extremities with no DVT and VQ scan with no pulmonary embolism. ACUTE KIDNEY INJURY Serum creatinine 2.6 on admission compared to baseline of 1.2 on 01/26/16. Acute kidney injury secondary to dehydration, IV fluids have decreased creatinine to 1.3. may restart home dose lisinopril / HCTZ. Avoid potential nephrotoxins. COUGH No infiltrates on chest x-ray. likely sinobronchitis, continue home dosed amoxicillin HYPERTENSION JAI resolves and can restart lisinopril / HCTZ VTE PROPHYLAXIS SQ heparin. Ambulate. DISPOSITION will need Family Medicine follow-up with Dr. Cornejo Total time spent on discharge = This includes examination of the patient, discharge planning, medication reconciliation, and communication with other providers. Discharge Instructions Patient was evaluated for Non cardiac chest pain, likely chest wall pain from URI / cough Patient was not found to have pulmonary embolism in the V/Q scan, was not found to have deep vein thrombosis in ultrasound of lower extremities, and was not found to be at risk for coronary artery disease based on dobutamine echo test Continue home medications including ASA, atorvastatin, lisinopril / HCTZ Follow up with your primary medical doctor Dr. Jenkins
[2017-02-21 16:58] VITALS: BP 108/66; PULSE 53; TEMP 36.6; O2SAT 94
[2017-02-22] MEDS ORDERED: LISINOPRIL/HCTZ 10/12.5MG TAB PO SCH (09:00)
== END 2017-02-21 18:01 | disposition home or self-care (01) | DRG 313 ==
LOC: C.EDB 16:29 → C.MED 20:28 → ENRESERV 20:45
PROVIDERS: ADMIT Hospitalist; ATTEND Hospitalist
DX: R07.89 Other chest pain (principal); N17.9 Acute kidney failure, unspecified; Z68.42 Body mass index [BMI] 45.0-49.9, adult; J06.9 Acute upper respiratory infection, unspecified; J45.909 Unspecified asthma, uncomplicated; K21.9 Gastro-esophageal reflux disease without esophagitis; I10 Essential (primary) hypertension; E78.5 Hyperlipidemia, unspecified; R79.1 Abnormal coagulation profile; E86.0 Dehydration; R05 Cough; G47.33 Obstructive sleep apnea (adult) (pediatric); E66.9 Obesity, unspecified; Z79.82 Long term (current) use of aspirin; Z79.899 Other long term (current) drug therapy; Z82.49 Family history of ischemic heart disease and other diseases of the circulatory system

== ENCOUNTER 2022-04-18 05:30 | Observation (INO) ==
--- NOTE | 2022-03-02 09:01 | PAT Medication Instructions ---
Medication Instructions Date of Service March 02, 2022 Home Medications atorvastatin 20 mg tablet 20 mg PO QAM hydrochlorothiazide 12.5 mg tablet 12.5 mg PO QAM cholecalciferol (vitamin D3) 125 mcg (5,000 unit) tablet (Vitamin D3) 125 mcg PO QAM losartan 100 mg tablet 100 mg PO QAM aspirin 81 mg tablet,delayed release 81 mg PO DAILY DO NOT take the morning of surgery hydrochlorothiazide 12.5 mg tablet 12.5 mg PO QAM cholecalciferol (vitamin D3) 125 mcg (5,000 unit) tablet (Vitamin D3) 125 mcg PO QAM losartan 100 mg tablet 100 mg PO QAM Take morning of surgery With a small sip of water, OTHERWISE NOTHING TO EAT OR DRINK AFTER MIDNIGHT: atorvastatin 20 mg tablet 20 mg PO QAM aspirin 81 mg tablet,delayed release 81 mg PO DAILY (continue as normal unless told otherwise by surgeon) Other Notes If you have any questions please call us at [phone] or [phone] or [phone] or [phone]
--- NOTE | 2022-03-03 09:42 | Anesthesiology Consultation ---
Date of Service March 03, 2022 Assessment & Plan (1) Encounter for pre-operative examination: - COVID screening: Per assessment on 03/03: No known COVID-19 positive contacts or current COVID-19 related symptoms. Travel screen negative. Patient vaccinated. At surgeon discretion if preop Covid testing being done. - Check BSG AM DOS - Outpatient joint assessment: Pt currently scheduled for inpatient pathway. If surgeon requests review for outpatient joint pathway, patient is not recommended candidate for outpatient joint program. - Patient acceptable risk for surgery pending surgeon-ordered PCP preop evaluation (Dr. Cornejo/S, scheduled ~03/24). Chart Review Chart Review: Patient seen in Pre Admission Testing Teaching & Discussion Pre-Anesthesia Teaching/Discussion Notes: Instructed NPO after midnight before surgery,except medications with 15 cc of water. Medication instructions provided according to the PAT guidelines. History Surgery Operation Date: 04/18/22 08:55 Proposed Procedures p Left Total Knee Arthroplasty - Vladimir Dominguez DO Height/Weight Height: 5 ft 6 in Weight: 134 kg Allergies Allergy/AdvReac Type Severity Reaction Status Date / Time No Known Allergies Allergy Verified 03/01/22 15:12 Medications Home Medications Medication Instructions Recorded Confirmed Last Taken atorvastatin 20 mg tablet 20 mg PO QAM 10/03/18 03/01/22 12/21/20 hydrochlorothiazide 12.5 mg tablet 12.5 mg PO QAM 01/16/19 03/01/22 12/21/20 cholecalciferol (vitamin D3) 125 125 mcg PO QAM 02/09/20 03/01/22 12/21/20 mcg (5,000 unit) tablet (Vitamin D3) losartan 100 mg tablet 100 mg PO QAM 02/09/20 03/01/22 12/21/20 aspirin 81 mg tablet,delayed 81 mg PO DAILY 12/21/20 03/01/22 12/21/20 release Past Medical History Medical History Anemia Elevated hemoglobin A1c Hgba1c 01/10/22 6.5% > PCP monitoring, no medical management rec'd at this time per PCP History of COVID-19 Dx 01/21/22 (home test, [facility]) > Symptoms at time sinus congestion, now resolved Hyperlipidemia Hypertension Morbid obesity Osteoarthritis Sensorineural hearing loss of both ears Sleep apnea CPAP (starts with it on every night but does take off a few hours after falling asleep d/t discomfort- typically uses ~4 hours/night) Exercise / Class Metabolic Activity II 4-5 Yardwork/Stairs/Walk up hill (one FS (no CP, no SOB)) Past Family History Family History Daughter Colorectal cancer Sister Heart disease Father Cancer Other No family history of adverse response to anesthesia Past Surgical History Surgical History History of back surgery LUMBAR FUSION History of cardiac cath 12+ years ago > no stents History of colonoscopy History of esophagogastroduodenoscopy (EGD) History of tonsillectomy History of tooth extraction S/P myringotomy with insertion of tube LEFT EAR Past Anesthesia History No Hx of Anesthesia Complications and No Family Hx of Anesthesia Complications History of PONV No Hx of PONV and No Hx of Motion Sickness Social History Smoking Status: Never smoker tobacco type: smokeless tobacco Do You Dip or Chew Tobacco: No (Quit 30 years ago) Hx Alcohol Use: Yes Alcohol type: beer alcohol intake frequency: a few times a month substance use type: does not use Review of Systems Patient denies chest pain, shortness of breath, dyspnea on exertion, fever, chills, cough, wheezing, palpitations. Physical Exam Vital Signs VITALS BP 107/68 P 60 TEMP 98.2 SP02 95%RA RESP 18 PHYSICAL Mildly decreased cervical extension range of motion. Full TMJ range of motion. TMD 3.5 finger breaths Mallampati Score 2 Dentition: no upper teeth, two remaining on lower Lungs: clear throughout to auscultation Cardiac: regular rate and rhythm, distant heart sounds Spine: normal Carotid arteries: negative bruit Extremities: no edema Thick neck Lab Results Anesthesia Preop Results Results Anesthesia Widget: WBC 6.93 K/ul (4.8-10.8) 03/03/22 Hgb 12.3 g/dl (14.0-18.0) L 03/03/22 Hct 37.6 % (40.1-51.0) L 03/03/22 Plt 172 K/uL (130-400) 03/03/22 Na 142 mmol/L (136-145) 03/03/22 K 3.5 mmol/L (3.5-5.1) 03/03/22 Cl 106 mmol/L (98-107) 03/03/22 CO2 29 mmol/L (21-32) 03/03/22 BUN 32 mg/dl (6-23) H 03/03/22 Creat 1.24 mg/dl (0.6-1.4) 03/03/22 Glucose Level 98 mg/dl (70-99(Fasting)) 03/03/22 PT 10.6 Seconds (9.0-12.0) 03/03/22 PTT 25.5 Seconds (21.0-31.0) 03/03/22 INR 1.0 (0.9-1.1) 03/03/22 HA1c 6.2 % (4.5-5.6) H 03/03/22 Urine Color Yellow 03/03/22 Urine Appearance Clear (Clear) 03/03/22 Urine pH 6.0 (4.5-7.5) 03/03/22 Urine Specific [place] 1.019 (1.000-1.030) 03/03/22 Urine Protein Negative (Negative) 03/03/22 Urine Glucose (UA) Negative (Negative) 03/03/22 Urine Ketones Negative (Negative) 03/03/22 Urine Blood Negative (Negative) 03/03/22 Urine Nitrite Negative (Negative) 03/03/22 Urine Bilirubin Negative (Negative) 03/03/22 Urine Urobilinogen Negative (Negative) 03/03/22 Urine Leukocyte Esterase Negative (Negative) 03/03/22 Blood Type AB Positive 03/03/22 Antibody Screen NEGATIVE 03/03/22 Testing Electrocardiogram Date: 03/03/22 SB at 59bpm. Otherwise normal ECG. Isolated TWI in lead III, NS TWA AVF per personal review. Report sent to PCP. Chest X-Ray Date: 03/03/22 FINDINGS: The lungs are clear. Cardiac silhouette is top normal in size. No pleural effusions. No pneumothorax. IMPRESSION: No acute process. Stress Test Date: 10/17/18 Type: DSE Normal pharmacologic stress echocardiogram. No echocardiographic or ECG evidence of myocardial ischemia having achieved heart rate adequate for diagnostic purposes. EF 60 to 65%. Grade 1 diastolic dysfunction. No significant valvular disease. 90% MPHR. COVID-19 Risk Screen Screening Information COVID-19 Screen Date: 03/03/22 Exposure 21 Days Family/Household +COVID Last 21 Days: No Exposure 10 Days Any COVID Exposure Last 10 Days: No Symptoms Last 10 Days Experienced COVID Sx Last 10 Days: No + COVID 0-90 Days COVID + in Last 0-90 Days: No
--- NOTE | 2022-03-31 13:57 | History & Physical Report ---
Date of Service March 31, 2022 date of surgery: 04/18/22 Procedure: Left Total Knee Arthroplasty Surgeon: Vladimir Dominguez Assessment & Plan (1) Arthritis of knee, left: Plan: Presents for preop evaluation prior to his left total knee replacement. He has tried and failed previous cortisone injection and viscosupplementation with little relief. He has tried oral anti-inflammatories and Tylenol as well, and a previous knee arthroscopy by Dr. Dominguez several years ago. This point time is failed conservative measures like to proceed with a left total knee replacement. Plan will be overnight stay and discharge with home health physical therapy. He does live alone however states he has some family can come stay with him and help him postoperatively. Will place on aspirin 81 mg twice a day for a month postop The risks and benefits have been discussed including, but not limited to, risk of infection, nerve injury, stiffness, loss of motion, failure to improve, etc. Reasonable outcomes and options of treatment were discussed. An explanation of appropriate alternatives to the procedure that may be advantageous were discussed and their risks and benefits, as well as the risks and benefits of not proceeding with treatment. I offered to answer any additional inquiries concerning the treatment involved. All the patient's questions were answered. The patient is agreeable, understanding of the treatment plan and alternatives, and wishes to proceed with the treatment plan. History of Present Illness Chief Complaint: left knee pain Primary Care Provider: Jesus Cornejo MD Cole is a six 7-year-old male who presents for preop evaluation prior to left total knee replacement. He had been having pain in his knee for many years now which is gradually worsened, and is now affecting his daily activities. He is tried previous cortisone injection as well as viscosupplementation injections without relief, is tried oral anti-inflammatories and Tylenol as well. Had a history of knee arthroscopy by Dr. Dominguez many years ago at this point time is failed conservative measures like to proceed with a left total knee replacement Allergies Allergy/AdvReac Type Severity Reaction Status Date / Time No Known Allergies Allergy Verified 03/01/22 15:12 Home Medications Medication Instructions Recorded Confirmed Type atorvastatin 20 mg tablet 20 mg PO QAM 10/03/18 03/01/22 History hydrochlorothiazide 12.5 mg tablet 12.5 mg PO QAM 01/16/19 03/01/22 History cholecalciferol (vitamin D3) 125 125 mcg PO QAM 02/09/20 03/01/22 History mcg (5,000 unit) tablet (Vitamin D3) losartan 100 mg tablet 100 mg PO QAM 02/09/20 03/01/22 History aspirin 81 mg tablet,delayed 81 mg PO DAILY 12/21/20 03/01/22 History release Past Med/Surg History Medical History Anemia Elevated hemoglobin A1c Hgba1c 01/10/22 6.5% > PCP monitoring, no medical management rec'd at this time per PCP History of COVID-19 Dx 01/21/22 (home test, [facility]) > Symptoms at time sinus congestion, now resolved Hyperlipidemia Hypertension Morbid obesity Osteoarthritis Sensorineural hearing loss of both ears Sleep apnea CPAP (starts with it on every night but does take off a few hours after falling asleep d/t discomfort- typically uses ~4 hours/night) Surgical History History of back surgery LUMBAR FUSION History of cardiac cath 12+ years ago > no stents History of colonoscopy History of esophagogastroduodenoscopy (EGD) History of tonsillectomy History of tooth extraction S/P myringotomy with insertion of tube LEFT EAR Family History Daughter Colorectal cancer Sister Heart disease Father Cancer Other No family history of adverse response to anesthesia Social History Smoking Status: Never smoker Second Hand Exposure: No; Hx Alcohol Use: Yes Alcohol type: beer Preferred Language: Turkmen Communication Ability: Effective Passenger Brakeman Required: No Beliefs That Will Affect Care: None Current Living Situation: Alone Feels Safe at Home: Yes Assistive Devices: CPAP and Glasses Review of Systems Review of Systems: All systems reviewed & are unremarkable except as noted in HPI & below Constitutional: no fever, no chills and no sweats Respiratory: no cough and no dyspnea Cardiovascular: no chest pain, no dyspnea and no orthopnea Gastrointestinal: no abdominal pain, no nausea and no vomiting Musculoskeletal: as per Subjective / HPI Physical Exam Physical Exam: HT: 5ft 6in WT: 134kg Constitutional: WD/WN, vitals as above no acute distress Respiratory: normal respiratory effort, lungs clear to auscultation no respiratory distress, no labored breathing and does not use accessory muscles Cardiovascular: RRR, no murmur, no edema Gastrointestinal (Abdomen): normal bowel sounds, soft, nontender, no h epatosplenomegaly Musculoskeletal: Knee: + knee abnormal to inspection (LEFT KNEE: ), + effusion (+1 effusion), + surgical incision (well healed portals), + limited ROM of knee (ROM 0/3/110), + knee ROM with crepitation, + joint line tenderness (medial joint line) and + Steven's sign positive; no deformity, no skin erythema, no ecchymosis, no valgus laxity, no varus laxity, anterior drawer test negative, Devon's sign negative and pivot shift test negative Results & Data Results & Data ([facility]) Diagnostic Findings Left Knee X-ray: left knee series confirm advanced degenerative changes to the left knee, greatest medial compartments and patellofemoral joint, showing joint space narrowing, osteophyte formation and subchondral sclerosis. no acute bony pathology noted.
[2022-04-18] MEDS ORDERED: LR 500ML BOLUS, THEN 15ML/HR IV SCH (06:00)
[2022-04-18] MEDS ORDERED: ROPIVACAINE 0.5% HCL/PF 150 MG, BUPIVACAINE 0.75% MPF 20 ML, EPINEPHrine 30MG/30ML (OR ... INSTIL SCH (06:00)
[2022-04-18] MEDS ORDERED: FAMOTIDINE 20 MG TAB PO SCH (06:00)
[2022-04-18] MEDS ORDERED: ACETAMINOPHEN 500 MG TAB PO SCH (06:00)
[2022-04-18] MEDS ORDERED: GABAPENTIN 300 MG CAP PO SCH (06:00)
[2022-04-18] MEDS ORDERED: TRANEXAMIC ACID 1,000 MG **IV Pre-op IV SCH (06:00)
[2022-04-18] MEDS ORDERED: CeleBREX 200 MG CAP PO SCH (06:00)
[2022-04-18] MEDS ORDERED: METOCLOPRAMIDE HCL 10 MG TABLET PO SCH (06:00)
[2022-04-18] MEDS ORDERED: TRANEXAMIC ACID 1,000 MG **IV Intra-op IV SCH (06:00)
[2022-04-18] MEDS ORDERED: dexAMETHasone 4 MG TAB PO SCH (06:00)
[2022-04-18] MEDS ORDERED: BUPIVACAINE 0.5 % 5 MG/1 ML PF 10ML VIAL ONE (06:23)
[2022-04-18] MEDS ORDERED: BUPIVACAINE 0.25% 30 ML VIAL ONE (06:24)
[2022-04-18] MEDS ORDERED: ePHEDrine sulfate 50 MG/ML AMP IV PRN (06:53)
[2022-04-18] MEDS ORDERED: ONDANSETRON INJ 2 MG/ML 2 ML VIAL IV PRN ×2 (06:53→12:47)
[2022-04-18] MEDS ORDERED: ATROPINE SULFATE 0.1 MG/ML 10ML SYR IV PRN (06:53)
[2022-04-18] MEDS ORDERED: fentaNYL citrate 100 MCG/2 ML VIAL IV PRN (06:53)
[2022-04-18] MEDS ORDERED: PROPOFOL IV EMULSION 10 MG/ML 20 ML VIAL IV ONE ×3 (07:08→08:05)
[2022-04-18] MEDS ORDERED: LIDOCAINE 2% MPF LOCAL 5 ML VIAL INFIL ONE (07:08)
[2022-04-18] MEDS ORDERED: MIDAZOLAM HCL 1 MG/ML 2ML VIAL ONE (07:08)
[2022-04-18] MEDS ORDERED: fentaNYL citrate 100 MCG/2 ML VIAL ONE (07:08)
--- NOTE | 2022-04-18 07:20 | History & Physical Bridge Note ---
Date of Service April 18, 2022 History & Physical Bridge Note I have examined the patient, reviewed the History & Physical and in the interval since the performance of the History & Physical I have noted the following changes of clinical significance: no changes noted
[2022-04-18] MEDS ORDERED: ORTHO JOINT ANESTHETIC ONE (08:58)
--- NOTE | 2022-04-18 09:59 | Operative Report ---
Post Operative Report Pre & Post Diagnosis Operation Date: 04/18/22 08:20 Pre-Op Diagnosis: Arthritis of left knee Post-Op Diagnosis: Arthritis of left knee I identified the patient and participated in the time-out.: Yes Procedure Operation Date: 04/18/22 08:20 Actual Procedures p Left Total Knee Arthroplasty(Left) utilizing [employer] 2 patient matched total knee arthroplasty size femur 6 tibia 5 polynine patella 32 darline- Vladimir Dominguez DO Surgeon Vladimir Dominguez DO Wireline Field Operator Demetrius RICHARDS Estimated Blood Loss 5 Findings Consistent with Post-Op Diagnosis Patient presents with severe end-stage tricompartmental degenerative joint disease varus alignment subchondral sclerosis marginal osteophytes eburnated [id number] left knee Specimens Bone and cartilage Drains Medium bore Hemovac Anesthesia Type MAC Spinal Regional Complications none Disposition Accompanied Patient To Recovery: No Disposition: Recovery Room Indications Patient presents with severe end-stage DJD left knee no response to conservative management including physical therapy anti-inflammatories relative rest activity modification corticosteroid injection viscosupplementation above intraoperative findings are noted Description of Procedure After proper prepping and draping of the left lower extremity anterior midline incision was made over the region of the extensor extensor mechanism after meticulous hemostasis was obtained and maintained in subcutaneous tissues a medial parapatellar incision was made The patella was subluxed lateralward the medial lateral gutter were cleaned from any hypertrophic synovitis and scar tissue of the distal femoral block was placed and the distal femoral osteotomy cut was made subsequently the chamfers anterior and posterior osteotomy cuts were made utilizing the 4-in-1 block the tibia was subsequently subluxed anteriorward medial and ateral meniscal remnants were excised in their entirety remnants of the anterior and posterior cruciate ligaments were excised in their entirety excellent exposure of the proximal tibia was obtained the tibial osteotomy guide was placed on the proximal tibial osteotomy cut was made once again the knee was irrigated with copious amounts of sterile saline solution the patella was subsequently everted lateralward thickened scar tissue around the patella was removed the patella was subsequently cut utilizing a freehand technique and was drilled prepared for final preparation and placement of patella socially flexion-extension gaps were checked and the equal and symmetric trials were placed to the appropriate femoral and tibial trials with poly-spacer being placed for equal flexion and extension gaps and full range of motion including extension to 0 and flexion to 140 the trial components after having been taken to recovery range of motion was subsequently removed meticulous hemostasis was obtained and maintained subsequently a knee block injection of joint cocktail including ropivacaine 0.5% 150 mg. Bupivacaine 0.5% epinephrine 1-200,030 mL's toradol 30 mg dexamethasone 4 mg ketamine 10 mg clonidine 100 micrograms normal saline solution 30 mg was infiltrated into the soft tissues of the posterior knee medial lateral gutters and periosteal synovium special attention was paid to protect neurovascular structures at all times subsequently trial components having been removed the knee was irrigated with sterile saline solution. debris was removed the proximal tibia was subsequently prepared and was made ready for the placement of the tibial component tibial component was also cemented and tamped into position the femoral component was subsequently placed and cemented in the position the patellar component was subsequently cemented in position because hemostasis once again obtained and maintained wound having been thoroughly irrigated with debridement and debridement lavage was per formed as well as a medial parapatellar incision closed with #1 Vicryl in interrupted fashion subcutaneous was closed with #2 Vicryl skin was closed with skin clips. PA-C was necessary for prepping and drapping as well as wound closure of deep fascia Sub cutaneous tissue and skin and was necessary for the case. A sterile compressive dressing was placed patient was taken to recovery in stable condition of report dictated by Alberto I attest to the content of the Intraoperative Record and any orders documented therein. Any exceptions are noted below.Due to the complex nature of the procedure, the entire surgery was performed with the operational assistance of Demetrius DIETRICH. The preschool teacher's assistant, under direct supervision, was involved in the actual performance of all aspects of the surgical procedure including hemostasis, tissue retraction and incision, instrument management, patient positioning, and wound closure. I attest to the content of the Intraoperative Record and any orders documented therein. Any exceptions are noted below.
[2022-04-18] MEDS ORDERED: DEXAMETHASONE SOD INJ 4 MG/ML VIAL ONE (10:23)
--- NOTE | 2022-04-18 12:09 | XRay Report ---
XR knee LT 1 or 2V routine CLINICAL HISTORY: Postoperative evaluation. COMPARISON: Left femur radiographs January 16, 2019. FINDINGS: Alignment of the total left knee arthroplasty is anatomic. No periprosthetic fracture or u nexpected radiopaque foreign body. Surgical drain is in place. IMPRESSION: Expected findings following total left knee arthroplasty. ACT 112: Negative or not required by law. Electronically signed by: Clark Baugh M.D. 04/18/2022 12:08 PM
--- NOTE | 2022-04-18 12:24 | Anesthesiology Progress Note ---
Date of Service April 18, 2022 Anesthesia Post Procedure Vital Signs Vital Signs: Temp Pulse Pulse Resp BP Pulse Ox O2 Del Method 04/18/22 12:00 57 L 19 132/61 96 Nasal Cannula 04/18/22 12:10 36.6 C 56 L 19 122/62 95 Nasal Cannula 04/18/22 11:50 55 L 28 H 118/60 96 Nasal Cannula 04/18/22 11:40 54 L 15 108/54 L 94 Nasal Cannula 04/18/22 11:30 55 L 19 107/56 L 92 Room Air 04/18/22 11:20 58 L 24 134/64 93 Room Air 04/18/22 11:10 63 24 122/68 92 Room Air 04/18/22 11:00 55 L 16 113/62 97 Oxymask 04/18/22 10:50 63 14 99/53 L 98 Oxymask 04/18/22 10:44 36.8 C 70 15 98/48 L 99 Oxymask 04/18/22 06:04 36.5 C 56 L 20 137/68 94 Room Air O2 Flow Rate 04/18/22 12:00 2 04/18/22 12:10 2 04/18/22 11:50 2 04/18/22 11:40 2 04/18/22 11:30 04/18/22 11:20 04/18/22 11:10 04/18/22 11:00 6 04/18/22 10:50 6 04/18/22 10:44 6 04/18/22 06:04 Pain Intensity Left Knee: Pain Intensity: 8 Transfer of Care Handoff Completed per policy Notes Mental Status: alert / awake / arousable and participated in evaluation Nausea / Vomiting: adequately controlled Pain: adequately controlled Airway Patency, RR, SpO2: stable & adequate BP & HR: stable & adequate Hydration State: stable & adequate Neuraxial Anesthesia: was administered and sensory block is resolving Anesthetic Complications: no major complications apparent and Pt Satisfied with anesthetic care
[2022-04-18] MEDS ORDERED: MAGNESIUM HYDROXIDE SUSP 30 ML UDC PO PRN (12:47)
[2022-04-18] MEDS ORDERED: diphenhydrAMINE 50 MG/ML VIAL IV PRN (12:47)
[2022-04-18] MEDS ORDERED: NALOXONE HCL 0.4 MG/1 ML VIAL/CARP IV PRN (12:47)
[2022-04-18] MEDS ORDERED: bisacodyL 10 MG SUPP PR PRN (12:47)
[2022-04-18] MEDS ORDERED: HYDROmorphone INJ 0.5 MG/0.5 ML SYR IV PRN (12:47)
[2022-04-18] MEDS: SODIUM CHLORIDE 0.9% 1000ML 1,000 ML IV SCH ×2 (15:27→22:29)
[2022-04-18] MEDS: ACETAMINOPHEN 500 MG TAB PO SCH ×2 (15:30→21:35)
[2022-04-18] MEDS: ceFAZolin 2000MG 2,000 MG/15 ML SYR IV SCH ×2 (15:46→23:23)
--- NOTE | 2022-04-18 20:02 | Hospitalist Consultation ---
Date of Consultation April 18, 2022 Assessment & Plan (1) Arthritis of knee, left: POD#[address] Dominguez Activity and wound care orders as per ortho Pain control with bowel regimen PT/OT Monitor H/H for acute blood loss anemia and transfuse blood products PRN EBL 5cc (2) Chest pain: Patient reports a brief episode of atypical chest pain, seems to be musculoskeletal in nature, no other associated symptoms reported, VSS EKG obtained --no acute changes noted Continue to monitor (3) Hypertension: Continue HCTZ and losartan (4) Sleep apnea: CPAP as per home settings (5) DVT prophylaxis: ASA 81 mg BID as per ortho Thank you for this consultation. We will follow the patient with you during their hospital stay. You can reach a member of the [facility]ist Team 25/12 via the [facility]ist role in [employer]. Supervising Physician Co-Signing Physician Notes I have seen and examined the patient and have discussed the case with the provider above. I agree with the assessment and plan as stated. 67 yo M s/p knee surgery. Pain appears to be well controlled. He has minimal chest pain and no associated symptoms. He reports the pain started prior to his dinner tonight but he was still able to eat dinner. He appears very comfortable on exam and has no tachycardia. He endorses discomfort only with taking a deep breath. EKG is not revealing acute ischemia. Physical exam otherwise reveals an obese man. VSS. Lungs are CTAB and cardiac exam is unrevealing. Lower extremities are warm and well perfused. Agree with plan as above. Thank you for this consultation. DO Mt History of Present Illness Reason for Consultation: Postop medical management Requesting Physician: Dr. Dominguez Attending Physician: Vladimir Dominguez DO History of Present Illness 67-year-old male with PMH dyslipidemia, HAILEY, HTN, GERD, and other problems listed below who is s/p left TKA today by Dr. Dominguez. Postoperatively, the patient appears to be doing well. He reports left knee pain is currently well controlled. Reports a brief episode of left-sided chest pain that is worse with a deep breath. Patient denies shortness of breath. No diaphoresis or associated nausea. Denies lightheadedness and dizziness. Patient has not voided since surgery. Allergies Allergy/AdvReac Type Severity Reaction Status Date / Time No Known Allergies Allergy Verified 04/18/22 05:56 Home Medications Medication Instructions Recorded Confirmed Type atorvastatin 20 mg tablet 20 mg PO QAM 10/03/18 04/18/22 History hydrochlorothiazide 12.5 mg tablet 12.5 mg PO QAM 01/16/19 04/18/22 History cholecalciferol (vitamin D3) 125 125 mcg PO QAM 02/09/20 04/18/22 History mcg (5,000 unit) tablet (Vitamin D3) losartan 100 mg tablet (Cozaar) 100 mg PO QAM 02/09/20 04/18/22 History aspirin 81 mg tablet,delayed 81 mg PO DAILY 12/21/20 04/18/22 History release Patient History Medical History Acquired deviated nasal septum Anemia Chronic otitis media of right ear with effusion Dysfunction of right eustachian tube Elevated hemoglobin A1c Hgba1c 01/10/22 6.5% > PCP monitoring, no medical management rec'd at this time per PCP History of COVID-19 Dx 01/21/22 (home test, [facility]) > Symptoms at time sinus congestion, now resolved Hyperlipidemia Hypertension Mixed conductive and sensorineural hearing loss of both ears Morbid obesity Osteoarthritis Sensorineural hearing loss of both ears Sleep apnea CPAP (starts with it on every night but does take off a few hours after falling asleep d/t discomfort- typically uses ~4 hours/night) Surgical History History of back surgery LUMBAR FUSION History of cardiac cath 12+ years ago > no stents History of colonoscopy History of esophagogastroduodenoscopy (EGD) History of tonsillectomy History of tooth extraction S/P myringotomy with insertion of tube LEFT EAR Family History Daughter Colorectal cancer Sister Heart disease Father Cancer Other No family history of adverse response to anesthesia Social History Smoking Status: Former smoker Second Hand Exposure: No; Do You Dip or Chew Tobacco: No (Quit 30 years ago); Hx Alcohol Use: Yes Alcohol type: beer Preferred Language: Mozambican Communication Ability: Effective Research Subject Required: No Beliefs That Will Affect Care: None Current Living Situation: Alone Feels Safe at Home: Yes Safety Concerns: Feels Safe At This Time Assistive Devices: CPAP and Glasses Assistive Devices Comment: READING GLASSES Review of Systems Review of Systems: ROS per HPI, all other systems reviewed and negative Physical Exam Constitutional: WD/WN, vitals as above + obese Eyes: PERRL, conjunctivae normal, anicteric sclerae ENMT: external ear and nose normal, oropharynx normal Respiratory: normal respiratory effort, lungs clear to auscultation Cardiovascular: Rate/Rhythm: regular rate and regular rhythm Vessels: normal peripheral pulses Extremities: no edema Gastrointestinal (Abdomen): normal bowel sounds, soft, nontender, no hepatosplenomegaly Musculoskeletal: no cyanosis or clubbing, extremities motor strength 5/5 S/p left knee surgery, CSM checks intact to LLE, surgical dressing CDI, drain in place draining bloody drainage Skin: no rashes, warm and dry Neurologic: PERRL, EOMI, accommodation nl, no face palsy, no dysarthria Psychiatric: A+Ox3, euthymic affect Results & Data Results & Data ([facility]) Vital Signs (Past 12 Hours) Vital Signs Temp Pulse Resp BP BP Pulse Ox O2 Del Method 04/18/22 19:00 36.8 C 63 18 138/74 96 Nasal Cannula 04/18/22 15:56 36.6 C 59 L 18 141/73 H 96 Nasal Cannula 04/18/22 14:54 36.7 C 62 16 128/69 96 Room Air 04/18/22 14:02 36.8 C 55 L 18 131/74 97 Nasal Cannula, BiPAP 04/18/22 13:15 36.5 C 54 L 16 134/75 96 Nasal Cannula, BiPAP 04/18/22 12:45 36.4 C L 54 L 16 112/69 2 L Nasal Cannula 04/18/22 13:39 Nasal Cannula 04/18/22 12:20 36.6 C 53 L 14 117/63 95 Nasal Cannula 04/18/22 12:00 57 L 19 132/61 96 Nasal Cannula 04/18/22 12:10 36.6 C 56 L 19 122/62 95 Nasal Cannula 04/18/22 11:50 55 L 28 H 118/60 96 Nasal Cannula 04/18/22 11:40 54 L 15 108/54 L 94 Nasal Cannula 04/18/22 11:30 55 L 19 107/56 L 92 Room Air 04/18/22 11:20 58 L 24 134/64 93 Room Air 04/18/22 11:10 63 24 122/68 92 Room Air 04/18/22 11:00 55 L 16 113/62 97 Oxymask 04/18/22 10:50 63 14 99/53 L 98 Oxymask 04/18/22 10:44 36.8 C 70 15 98/48 L 99 Oxymask O2 Flow Rate 04/18/22 19:00 2 04/18/22 15:56 2 04/18/22 14:54 04/18/22 14:02 2 04/18/22 13:15 2 04/18/22 12:45 04/18/22 13:39 2 04/18/22 12:20 2 04/18/22 12:00 2 04/18/22 12:10 2 04/18/22 11:50 2 04/18/22 11:40 2 04/18/22 11:30 04/18/22 11:20 04/18/22 11:10 04/18/22 11:00 6 04/18/22 10:50 6 04/18/22 10:44 6
[2022-04-18] MEDS ORDERED: SENNA 8.6 MG TAB PO SCH (21:00)
[2022-04-18] MEDS: DOCUSATE SODIUM 100 MG CAP PO SCH (21:36)
[2022-04-18] MEDS: ASPIRIN 81 MG ECTAB PO SCH (21:36)
[2022-04-18] MEDS: oxyCODONE HCL IR 5 MG TAB (IMMEDIATE RELEASE) PO PRN (21:39)
[2022-04-19] MEDS: oxyCODONE HCL IR 5 MG TAB (IMMEDIATE RELEASE) PO PRN ×2 (02:45→08:53)
[2022-04-19] MEDS: ACETAMINOPHEN 500 MG TAB PO SCH ×2 (05:33→13:56)
[2022-04-19 06:34] LABS: Hematocrit (blood only) 34.9 % (40.1-51.0); Hemoglobin 11.5 g/dl (14.0-18.0); Mean Corpuscular Hemoglobin 28.4 pg (25.0-34.0); Mean Corpuscular Volume 86.2 fL (80.0-100.0); Mean Platelet Volume 11.9 fL (9.4-12.4); Platelet Count 165 K/uL (130-400); RDW Coefficient of Variation 12.6 % (11.5-14.5); RDW Standard Deviation 39.9 fL (36.4-46.3); Red Blood Count 4.05 M/uL (4.63-6.08); White Blood Count 13.84 K/ul (4.8-10.8)
[2022-04-19 06:55] LABS: BUN Creatinine Ratio 22.7 (10-20); Calcium 8.2 mg/dl (8.5-10.1); Est GFR (African American) 80.1 ml/min; Est GFR (Non-African American) 69.1 ml/min; Potassium 3.9 mmol/L (3.5-5.1)
--- NOTE | 2022-04-19 07:45 | Orthopedic Progress Note ---
Date of Service April 19, 2022 Assessment & Plan (1) Arthritis of knee, left: Plan: POD 1 s/p Left TKA PT/OT protocols. WBAT. DVT prophylaxis - ASA bid, SCD's, JEFRY's Pain management as written DC planning - services upon DC. Admission and Anticipated Discharge Date Admission Date: April 18, 2022 Subjective POD 1 Pt lying in bed awake, alert. No complaints this AM. Pain controlled. Physical Exam Physical Exam: Dressings are C/D/I. Calves are soft, NT. NV intact. Toes mobile. Good DF/PF of left foot. HV drainage 150ml from previous shift. Results & Data ([facility]) Vital Signs (Past 12 Hours) Vital Signs Temp Pulse Resp BP Pulse Ox O2 Del Method 04/19/22 02:10 36.8 C 65 18 134/65 95 Room Air 04/18/22 21:48 36.6 C 63 18 138/67 92 Room Air Laboratory Results Laboratory Results WBC 13.84 K/ul (4.8-10.8) H 04/19/22 06:02 RBC 4.05 M/uL (4.63-6.08) L 04/19/22 06:02 Hgb 11.5 g/dl (14.0-18.0) L 04/19/22 06:02 Hct 34.9 % (40.1-51.0) L 04/19/22 06:02 MCV 86.2 fL (80.0-100.0) 04/19/22 06:02 MCH 28.4 pg (25.0-34.0) 04/19/22 06:02 MCHC 33.0 g/dL (32.0-36.0) 04/19/22 06:02 RDW Std Deviation 39.9 fL (36.4-46.3) 04/19/22 06:02 RDW Coeff of Valdo 12.6 % (11.5-14.5) 04/19/22 06:02 Plt Count 165 K/uL (130-400) 04/19/22 06:02 MPV 11.9 fL (9.4-12.4) 04/19/22 06:02 Sodium 139 mmol/L (136-145) 04/19/22 06:02 Potassium 3.9 mmol/L (3.5-5.1) 04/19/22 06:02 Chloride 108 mmol/L (98-107) H 04/19/22 06:02 Carbon Dioxide 27 mmol/L (21-32) 04/19/22 06:02 Anion Gap 4 (3-11) 04/19/22 06:02 BUN 25 mg/dl (6-23) H 04/19/22 06:02 Creatinine 1.10 mg/dl (0.6-1.4) 04/19/22 06:02 Est Cr Clr Drug Dosing 84.0 ml/min 04/19/22 06:02 Est GFR ( Amer) 80.1 ml/min 04/19/22 06:02 Est GFR (Non-Af Amer) 69.1 ml/min 04/19/22 06:02 BUN/Creatinine Ratio 22.7 (10-20) H 04/19/22 06:02 Glucose 146 mg/dl (70-99(Fasting)) H 04/19/22 06:02 Calcium 8.2 mg/dl (8.5-10.1) L 04/19/22 06:02 SARS-CoV-2, RNA, NAAT NEGATIVE (NEGATIVE) 04/18/22 Unknown Impressions Knee X-Ray 04/18/22 11:15 XR knee LT 1 or 2V routine CLINICAL HISTORY: Postoperative evaluation. COMPARISON: Left femur radiographs January 16, 2019. FINDINGS: Alignment of the total left knee arthroplasty is anatomic. No periprosthetic fracture or unexpected radiopaque foreign body. Surgical drain is in place. IMPRESSION: Expected findings following total left knee arthroplasty. ACT 112: Negative or not required by law. Electronically signed by: Clark Baugh M.D. 04/18/2022 12:08 PM
[2022-04-19] MEDS: ASPIRIN 81 MG ECTAB PO SCH (08:51)
[2022-04-19] MEDS: DOCUSATE SODIUM 100 MG CAP PO SCH (08:51)
[2022-04-19] MEDS ORDERED: ATORVASTATIN 20 MG TAB PO SCH (09:00)
[2022-04-19] MEDS ORDERED: hydroCHLOROthiazide 25 MG TAB PO SCH (09:00)
[2022-04-19] MEDS ORDERED: MULTIVITAMIN TAB PO SCH (09:00)
[2022-04-19] MEDS ORDERED: CHOLECALCIFEROL 5,000 UNITS 125 MCG TAB PO SCH (09:00)
[2022-04-19] MEDS ORDERED: LOSARTAN POTASSIUM 50 MG TAB PO SCH (09:00)
--- NOTE | 2022-04-19 12:48 | Electrocardiogram Report ---
Test Reason : Blood Pressure : / mmHG Vent. Rate : 062 BPM Atrial Rate : 062 BPM P-R Int : 160 ms QRS Dur : 088 ms QT Int : 412 ms P-R-T Axes : 046 -26 -02 degrees QTc Int : 418 ms Normal sinus rhythm Normal ECG When compared with ECG of 03-MAR-2022 10:06, No significant change was found Confirmed by Cole Sanchez ([id number]) on 04/19/2022 12:47:28 PM Referred By: Vladimir Dominguez Confirmed By:Cole Sanchez
--- NOTE | 2022-04-19 13:22 | Hospitalist Progress Note ---
Date of Service April 19, 2022 Assessment & Plan (1) Arthritis of knee, left: Plan: POD#[address] Dominguez Activity and wound care orders as per ortho Pain control with bowel regimen PT/OT Monitor H/H for acute blood loss anemia and transfuse blood products PRN EBL 5cc Pt reports pain at left knee under control. (2) Chest pain: Plan: Patient reports a brief episode of atypical chest pain, seems to be musculoskeletal in nature, no other associated symptoms reported, VSS EKG obtained --no acute changes noted No further chest pain. (3) Hypertension: Plan: Continue HCTZ and losartan (4) Sleep apnea: Plan: CPAP as per home settings (5) DVT prophylaxis: Plan: ASA 81 mg BID as per ortho Thank you for this consultation. We will follow the patient with you during their hospital stay. You can reach a member of the [facility] 25/12 via the [facility] role in [place] Text. Admission and Anticipated Discharge Date Admission Date: April 18, 2022 Subjective Patient seen and examined at bedside as a follow-up of left knee arthritis status post left TKA per Dr. Dominguez on 04/18/2022. Patient was lying in bed, on room air, NAD, reports eating okay, reports moving gas, had bowel movement prior to surgery yesterday, reports pain control at operative site at left knee with pain medications, denies any fever/chills/headache/chest pain/other review of symptoms. Physical Exam Physical Exam: GENERAL: Alert and oriented x3. NAD, on RA. Class III obese. HEENT: No pallor, no icterus. Pupils equal, round and reactive to light. Oral mucosa moist. NECK: No JVD, no neck masses. HEART: S1 and S2 heard. Regular rate and rhythm. No murmur, no gallop. RESPIRATORY SYSTEM: Normal AP diameter. No accessory muscle use. No wheezing, no crackles. ABDOMEN: Soft, bowel sounds present, nontender, no distention. CENTRAL NERVOUS SYSTEM: No facial droop. Speech is clear. Obeys simple commands. Moves extremities. EXTREMITIES: 1+ BLE edema, no erythema seen. Lt knee w/ clean dressing w/o soakage and hemovac w/ minimal serosanguinous collection noted. Results & Data Results & Data ([facility]) Vital Signs (Past 12 Hours) Vital Signs Temp Pulse Pulse Resp BP BP Pulse Ox 04/19/22 11:29 36.6 C 64 16 104/56 L 94 04/19/22 08:49 59 L 121/69 04/19/22 07:56 36.4 C L 56 L 20 115/68 96 04/19/22 02:10 36.8 C 65 18 134/65 95 O2 Del Method 04/19/22 11:29 Room Air 04/19/22 08:49 04/19/22 07:56 Room Air 04/19/22 02:10 Room Air
--- NOTE | 2022-04-25 08:11 | Discharge Summary ---
Date of Service April 25, 2022 Admission HPI Per Admitting Provider Oniel is a six 7-year-old male who presents for preop evaluation prior to left total knee replacement. He had been having pain in his knee for many years now which is gradually worsened, and is now affecting his daily activities. He is tried previous cortisone injection as well as viscosupplementation injections without relief, is tried oral anti-inflammatories and Tylenol as well. Had a history of knee arthroscopy by Dr. Dominguez many years ago at this point time is failed conservative measures like to proceed with a left total knee replacement Admission Exam Per Admitting Provider Physical Exam: HT: 5ft 6in WT: 134kg Constitutional: WD/WN, vitals as above no acute distress Respiratory: normal respiratory effort, lungs clear to auscultation no respiratory distress, no labored breathing and does not use accessory muscles Cardiovascular: RRR, no murmur, no edema Gastrointestinal (Abdomen): normal bowel sounds, soft, nontender, no hepatosplenomegaly Musculoskeletal: Knee: + knee abnormal to inspection (LEFT KNEE: ), + effusion (+1 effusion), + surgical incision (well healed portals), + limited ROM of knee (ROM 0/3/110), + knee ROM with crepitation, + joint line tenderness (medial joint line) and + Steven's sign positive; no deformity, no skin erythema, no ecchymosis, no valgus laxity, no varus laxity, anterior drawer test negative, Devon's sign negative and pivot shift test negative Principal Diagnosis Left Knee Osteoarthritis Discharge Data Allergies Allergy/AdvReac Type Severity Reaction Status Date / Time No Known Allergies Allergy Verified 04/18/22 05:56 Consultations 04/14/22 13:00 Consult Hospitalist Routine Procedures Performed Operation Date: 04/18/22 08:20 Actual Procedures p Left Total Knee Arthroplasty(Left) - Vladimir Dominguez DO Ordered Studies 04/18/22 05:00 US - OR guided needle placemen Routine Hospital Course (1) Arthritis of knee, left: Patient:ONIEL PATEL Admit Date:04/18/22 MR#:[id number] Att Phy:Vladimir Dominguez,D.O. Acct ID:[id number] Stephanie Phy:Jesus Cornejo MD Date:1955 [place] Phy: Age:67 Location:3N Sex:M Room/Bed:N382-1 cc: ~ *NOTICE TO RECEIVING DEMOCRAT/AGENCY This information is strictly Confidential and protected under [place] law. [place] law prohibits you from making any further disclosure of this information unless further disclosure is expressly permitted by the written consent of the person to whom it pertains or is authorized by law. A general authorization for the release of medical or other information is not sufficient for this purpose. Hospital accepts no responsibility if the information is made available to any other person, INCLUDING THE PATIENT. Date of Service April 19, 2022 Assessment & Plan (1) Arthritis of knee, left: Plan: POD 1 s/p Left TKA PT/OT protocols. WBAT. DVT prophylaxis - ASA bid, SCD's, JEFRY's Pain management as written DC planning - HH services upon DC. Pt seen by hospitalist service (Dr Crews) day of discharge. Cleared medically for dc. Progressed with PT. Pain controlled. DC'd home with HH services. Admission and Anticipated Discharge Date Admission Date: April 18, 2022 Subjective POD 1 Pt lying in bed awake, alert. No complaints this AM. Pain controlled. Physical Exam Physical Exam: Dressings are C/D/I. Calves are soft, NT. NV intact. Toes mobile. Good DF/PF of left foot. HV drainage 150ml from previous shift. Results & Data ([facility]) Vital Signs (Past 12 Hours) Vital Signs Temp Pulse Resp BP Pulse OxC O2 Del Method 04/19/22 02:10 36.8 C 65 18 134/65 95 Room Air 04/18/22 21:48 36.6 C 63 18 138/67 92 Room Air Laboratory Results Laboratory Results WBC 13.84 K/ul (4.8-10.8) H 04/19/22 06:02 RBC 4.05 M/uL (4.63-6.08) L 04/19/22 06:02 Hgb 11.5 g/dl (14.0-18.0) L 04/19/22 06:02 Hct 34.9 % (40.1-51.0) L 04/19/22 06:02 MCV 86.2 fL (80.0-100.0) 04/19/22 06:02 MCH 28.4 pg (25.0-34.0) 04/19/22 06:02 MCHC 33.0 g/dL (32.0-36.0) 04/19/22 06:02 RDW Std Deviation 39.9 fL (36.4-46.3) 04/19/22 06:02 RDW Coeff of Valdo 12.6 % (11.5-14.5) 04/19/22 06:02 Plt Count 165 K/uL (130-400) 04/19/22 06:02 MPV 11.9 fL (9.4-12.4) 04/19/22 06:02 Sodium 139 mmol/L (136-145) 04/19/22 06:02 Potassium 3.9 mmol/L (3.5-5.1) 04/19/22 06:02 Chloride 108 mmol/L (98-107) H 04/19/22 06:02 Carbon Dioxide 27 mmol/L (21-32) 04/19/22 06:02 Anion Gap 4 (3-11) 04/19/22 06:02 BUN 25 mg/dl (6-23) H 04/19/22 06:02 Creatinine 1.10 mg/dl (0.6-1.4) 04/19/22 06:02 Est Cr Clr Drug Dosing 84.0 ml/min 04/19/22 06:02 Est GFR ( Amer) 80.1 ml/minC 04/19/22 06:02 Est GFR (Non-Af Amer) 69.1 ml/min 04/19/22 06:02 BUN/Creatinine Ratio 22.7 (10-20) H 04/19/22 06:02 Glucose 146 mg/dl (70-99(Fasting)) H 04/19/22 06:02 Calcium 8.2 mg/dl (8.5-10.1) L 04/19/22 06:02 SARS-CoV-2, RNA, NAAT NEGATIVE (NEGATIVE) 04/18/22 Unknown Impressions Knee X-Ray 04/18/22 11:15 XR knee LT 1 or 2V routine CLINICAL HISTORY: Postoperative evaluation. COMPARISON: Left femur radiographs January 16, 2019. FINDINGS: Alignment of the total left knee arthroplasty is anatomic. No periprosthetic fracture or unexpected radiopaque foreign body. Surgical drain is in place. IMPRESSION: Expected findings following total left knee arthroplasty. Total Time Total Time Spent Total Time Spent (In Minutes): 10 Discharge Plan Discharge Items Patient Disposition: Home - Home Health Services Reason For Visit: Osteoarthritits of Knee Bilateral Discharge Diagnosis: Osteoarthritis Left Knee Activity: Per Instructions section Weightbearing: Left weightbearing Weightbearing Comment: as tolerated with walker or crutchesd Non-emergency contact: Surgeon Call non-emergency contact if: you have any medication questions, your pain is not controlled, your temperature is above 101.5, your wound has increased redness and your wound has increased drainage Follow-up/Referrals: Vladimir Dominguez DO [Surgeon] - (Follow up with Dr Dominguez in 2 weeks from the day of surgery for your first post operative visit.) Jesus Cornejo MD [Primary Care Provider] - Diet: Regular Addtl Attending Provider Instructions: ACTIVITY RECOMMENDATIONS: SELF CARE INSTRUCTIONS AFTER TOTAL KNEE REPLACEMENT A. You may need to continue a physical therapy program after discharge from the hospital. There are several options available to you. Your doctor will assist you in selecting the best one for you. 1. An out-patient facility 2 to 3 times a week for therapy or home therapy. 2. Continue working on all exercises taught to you in the hospital. Your goals should be to increase bending of your knee to 90 degrees and beyond and to fully straighten your knee. B. You may progress at your own pace from walking with a walker or crutches to a cane; then to no assistive devices. C. Make walking a part of your daily routine. Be up as much as comfortable with rest periods throughout the day. Rest with leg elevation is very important. Use the ice wrap frequently for the first 3-4 weeks. D. There are no restrictions on activities. You may ride in a car, shop, participate in atomizer assembler and all social activities. E. Wear the long elastic stockings (JEFRY hose) 20 hours a day for 2 weeks after surgery. They can be removed several times a day for laundering and for a bath. F. You may shower, no tub baths until cleared by your doctor. SPECIAL CARE INSTRUCTIONS: VERY IMPORTANT TO READ AND REVIEW A. There are a few signs you need to watch for after you are home. Call [facility] if you notice any of the followin. Increased severe knee pain. Some pain is expected especially when you exercise. 2. Increased swelling in your leg or knee; pain or swelling of the calf muscle in either lower leg. 3. Any fluid drainage from the incision. 4. Shortness of breath or chest pain. B. Please call [facility] at if you have any concerns or questions about your operation or recovery. The doctor or his nurse will return your call promptly. C. You must take antibiotics before dental work, bladder, bowel or other surgery. Your doctor will provide you with a permanent care to carry describing this precaution. IMPORTANT: * REMEMBER TO TAKE ASPIRIN, 81 MG, TWICE DAILY FOR 4 WEEKS UNLESS OTHERWISE DIRECTED. THIS IS YOUR BLOOD THINNER. * HIGH RISK PATIENTS MAY BE PRESCRIBED A STRONGER BLOOD THINNER. . * CALL IF INCREASED PAIN, REDNESS, DRAINAGE OR FEVER GREATER THAT 101. * WEAR JEFRY HOSE 20 HOURS PER DAY FOR 2 WEEKS. * DAYSI Dressing - This is a large suction dressing covering your incision. This will help pull any excess drainage from the wound and allow your incision to heal properly. You may shower with this if you can keep the unit outside of the shower. If any bleeding or leakage is noted please call your doctor's office. This will remain on your incision for 7 days and then should be removed. This can be done yourself or by the home nursing staff if applicable. The entire unit is disposable once removed. Once removed, keep incision clean and dry. If redness or drainage is noted, please call your surgeon. . * Once your Daysi dressing has been removed, follow the wound care instructions below. * DERMABOND Prineo- This is a mesh tape dressing that is covered with glue. It should remain in place until the incision is properly healed, usually 10-14 days. This dressing is designed to naturally slough off. You may trim the excess mesh tape as it peels off. Incision may be briefly wet in a shower. Dry immediately by blotting with a clean, dry towel. Do not bath or swim until instructed by your doctor. Do not scratch, rub, or pick at the dressing. Do not apply any topical ointments or lotions until dressing is completely removed and/or instructed by your doctor. There may be a small piece of suture material at one end of your incision. Do not pull or trim this. If it is bothersome or catching on clothing, you may cover it with a band-aid. FOLLOW UP VISIT: If appointment is not already scheduled: Please call [facility] to make a follow-up appointment for 2 weeks after your surgery at . Stand-Alone Forms: My [facility], Pain - Opioid Pain Management, Smoking Cessation Medications and DC Order Prescriptions: New aspirin 81 mg Tablet,Delayed Release (Dr/Ec) 81 mg PO BID 30 Days Qty: 60 0RF acetaminophen [Tylenol Extra Strength] 500 mg Tablet 1,000 mg PO Q8 14 Days Qty: 84 0RF polyethylene glycol 3350 [Miralax] 17 gram powder in packet 17 g PO DAILY PRN (Reason: constipation) Qty: 5 0RF cefadroxil 500 mg capsule 500 mg PO BID Qty: 28 1RF oxycodone 5 mg tablet 5 mg PO Q4H MDD 6 PRN (Reason: pain) Qty: 30 0RF Continued atorvastatin 20 mg tablet 20 mg PO QAM hydrochlorothiazide 12.5 mg Tablet 12.5 mg PO QAM losartan [Cozaar] 100 mg tablet 100 mg PO QAM cholecalciferol (vitamin D3) [Vitamin D3] 125 mcg (5,000 unit) Tablet 125 mcg PO QAM Discontinued aspirin 81 mg Tablet,Delayed Release (Dr/Ec) 81 mg PO DAILY Discharge Orders: Discharge Order (Routine); Ordered 04/19/22 Ordered By: Demetrius Fox/Other Patient Handouts: DVT Post Op Prevention Admission Data Admit Date/Time: 04/18/22 11:15 Attending Provider: Vladimir Dominguez Admit Provider: Vladimir Dominguez Primary Care Provider: Jesus Cornejo Other Providers: Kim Amor Other Interventions: Discharge Summary Assessment (RN) Last Done: 04/19/22 12:04
== END 2022-04-19 14:57 | disposition home health service (06) ==
LOC: ASU 05:30 → 3N 05:30

== ENCOUNTER 2023-04-24 06:16 | Observation (INO) ==
--- NOTE | 2023-03-30 16:02 | PAT Medication Instructions ---
Medication Instructions Date of Service March 30, 2023 Home Medications atorvastatin 20 mg tablet 20 mg PO QAM hydrochlorothiazide 12.5 mg tablet 12.5 mg PO QAM cholecalciferol (vitamin D3) 125 mcg (5,000 unit) tablet (Vitamin D3) 125 mcg PO QAM losartan 100 mg tablet (Cozaar) 100 mg PO QAM aspirin 81 mg tablet,delayed release (Adult Low Dose Aspirin) 81 mg PO QAM Vitafusion 1 tab PO QAM baclofen 10 mg tablet 10 mg PO BID PRN gabapentin 300 mg capsule 300 mg PO BID ASK your prescriber and surgeon aspirin 81 mg tablet,delayed release (Adult Low Dose Aspirin) 81 mg PO QAM DO NOT take the morning of surgery hydrochlorothiazide 12.5 mg tablet 12.5 mg PO QAM cholecalciferol (vitamin D3) 125 mcg (5,000 unit) tablet (Vitamin D3) 125 mcg PO QAM losartan 100 mg tablet (Cozaar) 100 mg PO QAM Vitafusion 1 tab PO QAM Take morning of surgery With a small sip of water, OTHERWISE NOTHING TO EAT OR DRINK AFTER MIDNIGHT: atorvastatin 20 mg tablet 20 mg PO QAM baclofen 10 mg tablet 10 mg PO BID PRN(if needed) gabapentin 300 mg capsule 300 mg PO BID Take evening before surgery baclofen 10 mg tablet 10 mg PO BID PRN(if needed) gabapentin 300 mg capsule 300 mg PO BID Other Notes If you have any questions please call us at [phone] or [phone] or [phone] or [phone]
--- NOTE | 2023-04-04 08:52 | History & Physical Report ---
Date of Service April 04, 2023 date of surgery: 04/24/23 Procedure: Right Total Knee Arthroplasty Surgeon: Vladimir Dominguez Assessment & Plan (1) Arthritis of right knee: Plan: Risk and benefits of procedure were discussed, he wishes to proceed with surgical intervention. Plan to be right knee total knee arthroplasty, will keep overnight with discharge following day with home health physical therapy for 2 weeks and then he would like to do his outpatient physical therapy at [facility]. Will place on aspirin 81 mg twice a day for 1 month postop DVT prophylaxis, he otherwise has no other questions or concerns The risks and benefits have been discussed including, but not limited to, risk of infection, nerve injury, stiffness, loss of motion, failure to improve, etc. Reasonable outcomes and options of treatment were discussed. An explanation of appropriate alternatives to the procedure that may be advantageous were discussed and their risks and benefits, as well as the risks and benefits of not proceeding with treatment. I offered to answer any additional inquiries concerning the treatment involved. All the patient's questions were answered. The patient is agreeable, understanding of the treatment plan and alternatives, and wishes to proceed with the treatment plan. History of Present Illness Chief Complaint: Right knee pain Primary Care Provider: Jesus Cornejo MD Cole is a pleasant 68-year-old male who presented for preop evaluation prior to right total knee replacement, he has a longstanding history of right knee pain which is gradually worsening and now affecting his daily activities. He underwent a left total knee replacement about a year ago and responded well. In regards to his right knee, he tried oral anti-inflammatories Tylenol, corticosteroid injection as well as viscosupplementation without relief. At this point time he has failed conservative measures and he would like to proceed with a right total knee replacement Allergies Allergy/AdvReac Type Severity Reaction Status Date / Time No Known Drug Allergies Allergy Verified 03/30/23 13:53 Home Medications Medication Instructions Recorded Confirmed Type atorvastatin 20 mg tablet 20 mg PO QAM 10/03/18 03/30/23 History hydrochlorothiazide 12.5 mg tablet 12.5 mg PO QAM 01/16/19 03/30/23 History cholecalciferol (vitamin D3) 125 125 mcg PO QAM 02/09/20 03/30/23 History mcg (5,000 unit) tablet (Vitamin D3) losartan 100 mg tablet (Cozaar) 100 mg PO QAM 02/09/20 03/30/23 History aspirin 81 mg tablet,delayed 81 mg PO QAM 08/14/22 03/30/23 History release (Adult Low Dose Aspirin) Vitafusion 1 tab PO QAM 09/25/22 03/30/23 History baclofen 10 mg tablet 10 mg PO BID PRN muscle spasms 09/25/22 03/30/23 History gabapentin 300 mg capsule 300 mg PO BID 09/25/22 03/30/23 History Past Med/Surg History Medical History Acquired deviated nasal septum Anemia Chronic otitis media of right ear with effusion Dysfunction of right eustachian tube Elevated hemoglobin A1c Hgba1c 03/03/22 6.2%, PCP monitoring Foreign body in eye region "Still there" Patient indicates that "doctor said he wouldn't touch it" History of COVID-19 Dx 01/2022 (home test, [facility] [place]) > Symptoms at time sinus congestion, now resolved Hyperlipidemia Hypertension Lumbar pain with radiation down left leg Rare Lumbosacral facet joint syndrome Lumbosacral stenosis with neurogenic claudication Mixed conductive and sensorineural hearing loss of both ears Morbid obesity Osteoarthritis Sensorineural hearing loss of both ears Sleep apnea CPAP (starts with it on every night but does take off a few hours after falling asleep d/t discomfort- typically uses ~4 hours/night) Surgical History History of back surgery L5-S1 fusion History of cardiac cath 12+ years ago, taken to [place] told he had a heart attack, transferred to [facility], "no findings" > no stents; no longer follows cardio History of colonoscopy History of esophagogastroduodenoscopy (EGD) History of left knee replacement Left TKA (04/18/22): SAB + PNB at [facility] History of tonsillectomy History of tooth extraction History of tympanostomy tube placement S/P epidural steroid injection *Headache following this procedure* S/P myringotomy with insertion of tube Left ear Family History Daughter Colorectal cancer Sister Heart disease Father Cancer Other No family history of adverse response to anesthesia Social History Smoking Status: Never smoker Second Hand Exposure: Yes (hx ex- smoked); Do You Dip or Chew Tobacco: No (quit 25-30 years ago; advised); Tobacco Cessation Education Requested by Patient: No Hx Alcohol Use: Yes Alcohol type: beer Hx Substance Use: No Preferred Language: Estonian Communication Ability: Effective Tattoo Artist Required: No Beliefs That Will Affect Care: None marital status: Single Current Living Situation: Alone Other Information That Helps Us Care for You: No Feels Safe at Home: Yes Safety Concerns: Feels Safe At This Time Assistive Devices: CPAP Review of Systems Review of Systems: All systems reviewed & are unremarkable except as noted in HPI & below Constitutional: no fever, no chills and no sweats Respiratory: no cough and no dyspnea Cardiovascular: no chest pain, no dyspnea and no orthopnea Gastrointestinal: no abdominal pain, no nausea and no vomiting Musculoskeletal: as per Subjective / HPI Physical Exam Physical Exam: HT: 5ft 6in WT: 131.5kg Constitutional: WD/WN, vitals as above no acute distress Respiratory: normal respiratory effort, lungs clear to auscultation no respiratory distress, no labored breathing and does not use accessory muscles Cardiovascular: RRR, no murmur, no edema Gastrointestinal (Abdomen): normal bowel sounds, soft, nontender, no hepat osplenomegaly Musculoskeletal: Knee: + knee abnormal to inspection (RIGHT KNEE), + effusion (+1 effusion), + limited ROM of knee (ROM 0/3/110), + knee ROM with crepitation, + joint line tenderness (medial joint line) and + Steven's sign positive; no deformity, no skin erythema, no ecchymosis, no valgus laxity, no varus laxity, anterior drawer test negative, Devon's sign negative and pivot shift test negative Results & Data Results & Data Diagnostic Findings right knee xrays showing complete loss joint space medial compartment with overall varus alignment, there is also narrowing of the lateral compartment and patellofemoral joint. there is osteophyte formation, subchondral sclerosis noted, no loose bodies, no acute bony pathology. overall impression tricompartmental degenerative changes to the right knee.
--- NOTE | 2023-04-04 11:25 | Anesthesiology Consultation ---
Date of Service April 04, 2023 Assessment & Plan (1) Encounter for pre-operative examination: - Check BSG AM DOS - Infectious disease screening: Per assessment on 04/04/23: No known infectious disease contacts or current infectious disease symptoms. No noted Covid positive test result in past 90 days. - Outpatient joint assessment: Pt currently scheduled for inpatient pathway. If surgeon requests review for outpatient joint pathway, patient is not recommended candidate for outpatient joint program from anesthesia standpoint. - Anesthesia hx: * Hx of headache following epidural injection procedure* * Left TKA (04/18/22): SAB + PNB at [facility] - Patient acceptable risk for surgery pending surgeon-ordered PCP preop evaluat ion (FADY Bowden/Dr. Cornejo, appt 04/13). Chart Review Chart Review: Patient seen in Pre Admission Testing Teaching & Discussion Pre-Anesthesia Teaching/Discussion Notes: Instructed NPO after midnight before surgery,except medications with 15 cc of water. Medication instructions provid ed according to the PAT guidelines. History Surgery Operation Date: 04/24/23 07:15 Proposed Procedures p Right Total Knee Arthroplasty - Vladimir Dominguez DO Height/Weight Height: 5 ft 6 in Weight: 130.4 kg Allergies Allergy/AdvReac Type Severity Reaction Status Date / Time No Known Drug Allergies Allergy Verified 03/30/23 13:53 Medications Home Medications Medication Instructions Recorded Confirmed Last Taken atorvastatin 20 mg tablet 20 mg PO QAM 10/03/18 03/30/23 04/18/22 04:15 hydrochlorothiazide 12.5 mg tablet 12.5 mg PO QAM 01/16/19 03/30/23 04/17/22 05:00 cholecalciferol (vitamin D3) 125 125 mcg PO QAM 02/09/20 03/30/23 04/17/22 05:00 mcg (5,000 unit) tablet (Vitamin D3) losartan 100 mg tablet (Cozaar) 100 mg PO QAM 02/09/20 03/30/23 04/17/22 05:00 aspirin 81 mg tablet,delayed 81 mg PO QAM 08/14/22 03/30/23 Unknown release (Adult Low Dose Aspirin) Vitafusion 1 tab PO QAM 09/25/22 03/30/23 Unknown baclofen 10 mg tablet 10 mg PO BID PRN muscle spasms 09/25/22 03/30/23 Unknown gabapentin 300 mg capsule 300 mg PO BID 09/25/22 03/30/23 Unknown diclofenac sodium 75 mg 75 mg PO DAILY 04/04/23 04/04/23 Unknown tablet,delayed release docusate sodium 100 mg capsule 100 mg PO DAILY 04/04/23 04/04/23 Unknown (Stool Softener) Past Medical History Medical History Acquired deviated nasal septum Anemia Chronic otitis media of right ear with effusion Diabetes mellitus Per [facility] records, A1C 6.2% 09/2022 Diet controlled Dysfunction of right eustachian tube Foreign body in eye region Incidental finding 2022 Patient indicates that doctor evaluated and recommended not removing History of COVID-19 Dx 01/2022 (home test, [facility]) > Symptoms at time sinus congestion, now resolved Hyperlipidemia Hypertension Lumbar pain with radiation down left leg Rare Lumbosacral facet joint syndrome Lumbosacral stenosis with neurogenic claudication Mixed conductive and sensorineural hearing loss of both ears Morbid obesity Osteoarthritis Sensorineural hearing loss of both ears Sleep apnea CPAP (starts with it on every night but does take off a few hours after falling asleep d/t discomfort- typically uses ~4 hours/night) Exercise / Class Metabolic Activity III < 4 Walking/Shop/Light housework Past Family History Family History Daughter Colorectal cancer Sister Heart disease Father Cancer Other No family history of adverse response to anesthesia Past Surgical History Surgical History History of back surgery L5-S1 fusion History of cardiac cath 12+ years ago, taken to [place] told he had a heart attack, transferred to [facility], "no findings" > no stents; no longer follows cardio History of colonoscopy History of esophagogastroduodenoscopy (EGD) History of left knee replacement Left TKA (04/18/22): SAB + PNB at [facility] History of tonsillectomy History of tooth extraction History of tympanostomy tube placement S/P epidural steroid injection *Headache following this procedure* S/P myringotomy with insertion of tube Left ear Past Anesthesia History No Hx of Anesthesia Complications and No Family Hx of Anesthesia Complications History of PONV No Hx of PONV and No Hx of Motion Sickness Social History Smoking Status: Never smoker tobacco type: smokeless tobacco Do You Dip or Chew Tobacco: No (Quit 25+ years ago) Hx Alcohol Use: Yes Alcohol type: beer alcohol intake frequency: holidays/special occasions only Hx Substance Use: No substance use type: does not use Review of Systems Patient denies chest pain, shortness of breath, reflux, cough, wheezing, palpitations. Physical Exam Vital Signs VITALS BP 144/77 P 62 TEMP 98.4 SP02 97%RA RESP 18 PHYSICAL Full cervical extension range of motion. Full TMJ range of motion. TMD 3 finger breaths Mallampati Score 3 Dentition: no upper teeth, missing lower side tooth Lungs: clear throughout to auscultation Cardiac: regular rate and rhythm, no murmurs noted Spine: normal Carotid arteries: negative bruit Extremities: no LE edema Lab Results Anesthesia Preop Results Results Anesthesia Widget: WBC 8.04 K/ul (4.8-10.8) 04/04/23 Hgb 13.9 g/dl (14.0-18.0) L 04/04/23 Hct 41.9 % (42.0-52.0) L 04/04/23 Plt 185 K/uL (130-400) 04/04/23 Na 144 mmol/L (136-145) 04/04/23 K 4.3 mmol/L (3.5-5.1) 04/04/23 Cl 106 mmol/L (98-107) 04/04/23 CO2 33 mmol/L (21-32) H 04/04/23 BUN 17 mg/dl (6-23) 04/04/23 Creat 1.21 mg/dl (0.6-1.4) 04/04/23 Glucose Level 104 mg/dl (70-99(Fasting)) H 04/04/23 PT 10.3 Seconds (9.0-12.0) 04/04/23 PTT 25.6 Seconds (21.0-31.0) 04/04/23 INR 0.9 (0.9-1.1) 04/04/23 HA1c 6.0 % (4.5-5.6) H 04/04/23 Urine Color Yellow 04/04/23 Urine Appearance Clear (Clear) 04/04/23 Urine pH 5.5 (4.5-7.5) 04/04/23 Urine Specific Brandon 1.016 (1.000-1.030) 04/04/23 Urine Protein Negative (Negative) 04/04/23 Urine Glucose (UA) Negative (Negative) 04/04/23 Urine Ketones Trace (Negative) H 04/04/23 Urine Blood Negative (Negative) 04/04/23 Urine Nitrite Negative (Negative) 04/04/23 Urine Bilirubin Negative (Negative) 04/04/23 Urine Urobilinogen Negative (Negative) 04/04/23 Urine Leukocyte Esterase Negative (Negative) 04/04/23 Blood Type AB Positive 04/04/23 Antibody Screen NEGATIVE 04/04/23 Testing Laboratory Results *Preop testing forwarded to PCP per patient request* Electrocardiogram Date: 04/04/23 SB at 59bpm. "Otherwise normal ECG" Chest X-Ray Date: 04/04/23 FINDINGS: No pneumothorax. No pleural fusions. The heart remains mildly enlarged. No focal lung consolidations to suggest a pneumonia. No evidence for pulmonary edema. No acute fractures identified. IMPRESSION: Stable mild cardiomegaly. Otherwise, no acute process within the chest.
[~2023-04-24 06:16] MED LIST changes: +ACETAMINOPHEN 500 MG TAB PO SCH; -ASPI81TA28 PO; -ATOR-22 PO; +CeleBREX 200 MG CAP PO SCH; +FAMOTIDINE 20 MG TAB PO SCH; +GABAPENTIN 300 MG CAP PO SCH; +LR 500ML BOLUS, THEN 15ML/HR IV SCH; +LR 60ML/HR IV SCH; -LSN/10125 PO; -METH500T37 PO; +METOCLOPRAMIDE HCL 10 MG TABLET PO SCH; +ROPIVACAINE 0.5% HCL/PF 150 MG, BUPIVACAINE 0.75% MPF 20 ML, EPINEPHrine 30MG/30ML (OR ... INSTIL SCH; +TRANEXAMIC ACID 1,000 MG **IV Intra-op IV SCH; +TRANEXAMIC ACID 1,000 MG **IV Pre-op IV SCH; -VITAMIN D3 PO
--- OUTSIDE RECORDS SUMMARY | 2023-04-24 06:21 | External Medical Summary | Summary of Care ---
Author Name Unknown Organization [facility] Address [address] [place] [address] Phone [phone] Care Team Providers Care Trip Follower Name Role Phone Jesus Cornejo MD Primary Care Provider [phone] Reason for Visit * Reason Onset Date Comments Med Request 04/16/2023 Encounter Details Date Type Department Care Team (Late st Contact Info) Description 04/16/[address] [facility] [address] [place] [address] Jesus Cornejo MD [address] [place] [address] Med Request (/) Allergies No known active allergiesdocumented as of this encounter (statuses as of 04/16/2023) Medications Medication Sig Dispensed Refills Start Date End Date Status aspirin 81 MG chewable tablet Take 1 Tablet by mouth in the morning. with food.. 100 Tab 5 08/14/2016 Active Cholecalciferol (VITAMIN D3) 5000 UNITS Tablet Take 1 Capsule by mouth in the morning. 0 10/23/2016 Active Acetaminophen 500 MG Oral Tablet Take 1 Tablet by mouth every 6 hours as needed. 0 Active Losartan Potassium 100 MG Oral Tablet (Cozaar)Indication s:HTN, goal below 140/90 Take 1 tablet by mouth once daily 90 Tablet 3 05/15/2022 Active Atorvastatin Calcium 20 MG Oral Tablet (Lipitor)Indicatio ns:Dyslipidemia, goal to be determined Take 1 Tablet by mouth in the morning. 90 Tablet 3 05/25/2022 Active Blood Pressure KitIndications:HTN , goal below 140/90 Large cuff, use as directed 1 Kit 0 08/23/2022 Active Multivitamin Men 50+ Oral Tablet Take by mouth. 0 Activ e hydroCHLOROthiazid e 25 MG Oral Tablet (Hydrodiuril)Indic ations:HTN, goal below 140/90 Take 1 Tablet by mouth in the morning. 90 Tablet 3 09/12/2022 Active Additional Information Patient not taking.Reported on 04/13/2023 Gabapentin 300 MG Oral Capsule (Neurontin) Take 1 Capsule by mouth 2 times a day as needed (neck pain). 60 Capsule 5 09/18/2022 Active Additional Information Patient not taking.Reported on 04/13/2023 Baclofen 10 MG Oral Tablet (Lioresal) Take 1 Tablet by mouth in the morning and 1 Tablet before bedtime. 60 Tablet 1 09/18/2022 Active Diclofenac Sodium 75 MG Oral Tablet Delayed Release (Voltaren) Take 1 Tablet by mouth in the morning and 1 Tablet before bedtime. With food.. 60 Tablet 0 02/13/2023 Active documented as of this encounter (statuses as of 04/16/2023) Active Problems Problem Noted Date Diagnosed Date Type 2 diabetes mellitus wit h diabetic mononeuropathy, without long-term current use of insulin 07/06/2022 Pain in both knees 10/27/2020 Obstructive sleep apnea 08/17/2020 Body mass index (BMI) of 45.0 to 49.9 in adult 0 08/12/2018 Overview: Per Obesity protocol #1 - Per Obesity Taxonomy Chronic midline low back pain with bilateral sci atica 10/03/2017 DYSLIPIDEMIA, GOAL TO BE DETERMINED 05/13/2009 Overview: Per Lipid Taxonomy. Chest pain, non-cardiac 03/26/2008 Esophageal reflux 03/19/2008 History of tobacco use 07/12/2007 Adjustment disorder with depressed mood 01/23/20 07 HTN, goal below 140/90 01/22/2007 Chronic rhinitis 09/05/2004 Dermatitis 07/01/2002 UNSPECIFIED GASTRITIS 07/01/2002 documented as of this encounter (statuses as of 04/16/2023) Resolved Problems Problem Noted Date Diagnosed Date Resolved Date Prediabetes 06/12/2022 07/19/2022 Overview: Per Prediabetes protocol Body mass index (BMI) of 40. 0 to 44.9 in adult 03/11/2018 08/13/2018 Overview: Per Obesity protocol #1 - Per Obesity Taxonomy Body mass index (BMI) of 45. 0 to 49.9 in adult 01/15/2018 03/18/2018 Overview: Per Obesity protocol #1 - Per Obesity Taxonomy Body mass index (BMI) of 50. 0 to 59.9 in adult 07/17/2017 01/19/2018 Overview: Per Obesity protocol #1 - Per Obesity Taxonomy Body mass index (BMI) of 45. 0 to 49.9 in adult 03/05/2017 07/25/2017 Overview: Per Obesity protocol #1 - Per Obesity Taxonomy Chronic midline low back tawnya n without sciatica 02/28/2017 10/03/2017 Polyuria 09/07/2009 07/12/2017 Obesity, BMI not known 08/31/200903/08 Overview: Per Obesity Taxonomy Heart failure with preserved left ventricular function (HFpEF) 04/01/2009 07/28/2016 Overview: Per Heart Failure Taxonomy Protocol. Mixed dyslipidemia 03/26/2008 9 Overview: Per Lipid Taxonomy. Angina pectoris 03/19/2008 06/12/2008 Hypertensive heart failure 03/19/2008 1 Overview: Per Heart Failure Taxonomy Protocol. Obesity, BMI not known 01/22/200708/31 Overview: Per Obesity Taxonomy ACUTE STRESS 01/22/2007 07/20/2020 Screening for prostate cancer 01/22/2007 08/12/2008 Overview: Resolved per Screening Diagnosis Protocol #6 Otalgia 09/05/2004 07/12/2017 DYSFUNCT EUSTACHIAN TUBE 09/05/200401/2018 ACUTE SINUSITIS NOS 09/05/2004 07/12/19 18 Overview: RESOLVED MEDIAL EPICONDYLITIS, LEFT 09/05/2004 0 07/12/2017 ACUTE PHARYNGITIS 07/01/2002 07/23/2008 Overview: Resolved per Benign Acute Dxs Protocol #3 UNSPECIFIED GASTRITIS 07/01/20022017 documented as of this encounter (statuses as of 04/16/2023) Immunizations Name Administration Dates Next Due COVID-19 mRNA, LNP-s, No Pre serve, 2-Dose Series (Pfizer) 12/24/2020,12/02/2020 Pneumococcal Conjugate Vacci ne, 20-valent ([id number]) 05/25/2022 Pneumococcal Polysaccharide PPV23 (Pneumovax) 10/13/2009 SEASONAL INFLUENZA, PF, 6 M & Above, IM , (FLULAVAL or FLUZONE) 05/16/2018 TDAP (age 10 and older)(Boostrix) 10/09/2018 TDAP (age 11 and older)(Adacel) 09/09/19 09,08/27/2008(Deferred: Patient Refused) documented as of this encounter Social History Tobacco Use Types Packs/Day Years Used Date Smoking Tobacco: Never Smokeless Tobacco: Former Chew Comments:30 years, 1 can a d ay Alcohol Use Standard Drinks/Week Comments Yes 0 (1 standard drink = 0.6 oz pur e alcohol) occ PHQ-2 Answer Date Recorded PHQ Adult Total Score 0 08/23/2022 Sex and Gender Information Value Date Recorded Sex Assigned at Male 10/09/2018 3:21 PM EDT Gender Identity Male 10/09/2018 3:21 PM EDT Sexual Orientation Straight 10/09/2018 3: 21 PM EDT Job Start Date Occupation Industry Not on file Not on file Not on file documented as of this encounter Miscellaneous Notes * Telephone Encounter - Adelia Liriano CPhT - 04/16/2023 10:02 AM EST Pt calling to request HCTZ. Informed pt that RX is available at their pharmacy. Pt verbalized understanding and stated they will check with their pharmacy regarding this medication. Thank you, Adelia Liriano CPhT Retail Marketing Coordinator [facility] ([facility]formerly telepharmacy) 04/16/2023,10:02 AM documented in this encounter Plan of Treatment Upcoming Encounters Date Type Department Care Team (Late st Contact Info) Description 08/29/2023 9:30 AM EDT Procedure Only Endoscopy, [address] [place] [phone] Iqra Diaz MD [address] [place] [phone] 10/04/2023 3:30 PM EDT Office Visit [facility] [address] [place] [phone] Madeline David CRNP [address] [place] [id number] Health Maintenance Due Date Last Done Comments Diabetic Foot Exam 1973 Zoster Vaccines (1 of 2) 2005 Hepatitis B (1 of 3 - Risk 3-dose series) 2015 COLONOSCOPY-EVERY 5 YRS AGES 18-100 12/14/2021 12/14/2016, 07/24/2008 COVID-19 Vaccine ( - 2022- season) 2023 12/24/2020, 12/02/2020 Influenza Vaccine (FLU shot) (#1) 2023 05/16/2018 Albumin/Creatinine Ratio 05/26/2023 05/26/2022, 03/05 Depression Screening 08/24/2023 08/23/2022 Diabetic Eye Exam 09/12/2023 09/11/2022 HbA1c 10/03/2023 04/04/2023, 09/02, 05/26/2022, Additional history exists GFR 04/04/2024 04/04/2023, 09/02, 03/03/2022, Additional history exists Lipid Panel 05/26/2027 05/26/2022, 10/11/2020, 01/07/2020, Additional history exists DTaP,Tdap,and Td Vaccines (3 - Td or Tdap) 10/09/2028 10/09/2018, 09/08/2008 Pneumococcal Vaccine: 65+ Years Completed 05/25/2022, 10/13/2009 GARDASIL-HPV IMMUNIZATION SERIES Aged Out No longer eligible based on patient's age to complete this topic MENINGOCOCCAL (MENACTRA/MENVEO) Aged Out No longer eligible based on patient's age to complete this topic documented as of this encounter Medical Devices Not on filedocumented as of this encounter Advance Directives Latest Code Status on File Code Status Date Activated Date Inactivated Comments Full Code 03/19/2008 2:32 PM 03/19/2008 11:12 PM Care Teams Trip Follower Relationship Specialty Start Date End Date Jesus Cornejo MD [address] [place] [address] PCP - General 04/28/08 documented as of this encounter
--- OUTSIDE RECORDS SUMMARY | 2023-04-24 06:21 | External Medical Summary | Summary of Care ---
Author Name Unknown Organization [facility] Address [address] [place] [address] Phone [phone] Care Team Providers Care Earthmoving Plant Operator Name Role Phone Jesus Cornejo MD Primary Care Provider [phone] Reason for Visit * Reason Comments Physical-Exam Pre op clearance Encounter Details Date Type Department Care Team (Late st Contact Info) Description 04/13/2023 12:00 PM EST Office Visit [facility] [address] [place] [address] Jesus Cornejo MD [address] [place] [address] Risk and functional assessment* Allergies No known active allergiesdocumented as of [...] (Pfizer) 12/24/2020,12/02/2020 Pneumococcal Conjugate Vacci ne, 20-valent ([id number]) 05/25/2022 Pneumococcal Polysaccharide PPV23 (Pneumovax) 10/13/2009 SEASONAL INFLUENZA, PF, 6 M & Above, IM , (FLULAVAL or FLUZONE) 05/16/2018 TDAP (age 10 and older)(Boostrix) 10/09/2018 TDAP (age 11 and older)(Adacel) 09/09/19 09,08/27/2008(Deferred: Patient Refused) documented as of this encounter Social History Tobacco Use Types Packs/Day Years Used Date Smoking Tobacco: Never Smokeless Tobacco: Former Chew Tobacco Cessation:Counseling Given: Not Answered Comments:30 years, 1 can a day Alcohol Use Standard Drinks/Week Comments Yes 0 [...] on file documented as of this encounter Last Filed Vital Signs Vital Sign Reading Time Taken Comments Blood Pressure 138/76 04/13/2023 12:09 PM EST Pulse 67 04/13/2023 12:09 PM EST Temperature 36.7 C (98 F) 04/13/2023 12: 09 PM EST Respiratory Rate 20 04/13/2023 12:0 9 PM EST Oxygen Saturation 95% 04/13/2023 12: 09 PM EST Inhaled Oxygen Concentration - - Weight 131.9 kg (290 lb 12.8 oz) 2022 12:09 PM EST Height 167.6 cm (5' 6") 04/13/2023 12:0 9 PM EST Body Mass Index 46.94 04/13/2023 12:09 PM EST documented in this encounter Patient Instructions * Patient Instructions* Toma Fragoso LPN - 04/13/2023 12:09 PM EST Patient Instructions - Fall Prevention (This education is for all patients over 65 regardless of symptoms) Remember to take your current medications as prescribed. In order to prevent falls, you are encouraged to: Exercise Utilize assistive/adaptive devices Avoid multifocal lenses when walking Avoid hazards in home Maintain a regular toileting schedule Any questions please contact our office. Preventing Falls in the Home (This education is for all patients over 65 regardless of symptoms) As you get older, falls are more likely. Thats because your reaction time slows. Your muscles and joints may also get stiffer, making them less flexible. Illness, medications, and vision changes can also affect your balance. A fall could leave you unable to live on your own. To make your home safer, follow these tips: Floors Put nonskid pads under area rugs Remove throw rugs Replace worn floor coverings Tack carpets firmly to each step on carpeted stairs. Put nonskid strips on the edges of uncarpeted stairs Keep floors and stairs free of clutter and cords Arrange furniture so there are clear pathways Clean up any spills right away Bathrooms Install grab bars in the tub or shower Apply nonskid strips or put a nonskid rubber mat in the tub or shower Sit on a bath chair to bathe Use bathmats with nonskid backing Lighting Keep a flashlight in each room Put a nightlight along the pathway between the bedroom and the bathroom [employer] Patient Education Copyright 2008 - 2010 Domin[employer] except where otherwise noted Preventing Falls: Exercises to Improve Balance, Flexibility, Strength, and Staying Power (This education is for all patients over 65 regardless of symptoms) Certain types of exercises may help make you less likely to fall. Try the ones below. Or do other exercises that your healthcare provider suggests. Depending on your health, you may need to start slowly. Dont let that stop you. Even small amounts of exercise can help you. Be sure to talk to yourhealthcare provider before starting any exercise program. Improve Balance Many types of exercise can help improve balance. Royal chi and yoga are good examples. Heres another one to try. You can do it anytime and almost anywhere. Stand next to a counter or solid support. Push yourself up onto your tiptoes. Hold for 5 seconds. If you start to lose your balance, hold on to the counter. Rest and repeat 5 times. Work up to holding for 20 to 30 seconds, if you can. Increase Flexibility Being more flexible makes it easier for you to move around safely. Try exercises like the seated hamstring stretch. Sit in a chair and put one foot on a stool. Straighten your leg and reach with both hands down either side of your leg. Reach as far down your leg as you can. Hold for about 20 seconds. Go back to the starting position. Then repeat 5 times. Switch legs. Build Strength Resistance exercises help build strength. You can do them without equipment. Or you can use weights, elastic bands, or special machines. One such exercise is called the biceps curl. You can hold a 1 pound weight or even a can of soup. Do this exercise at least 3 times a week. Strive for everyday. Sit up straight in a chair. Keep your elbow close to your body and your wrist straight. Bend your arm, moving your hand up to your shoulder. Then slowly lower your arm. Repeat 5 times. Switch to the other arm. Build Your Staying Power Aerobic exercises make your heart and lungs stronger so you can keep moving longer. Walking and swimming are two of the best types of exercises you can do. Using a stationary bike is great, too. Find an aerobic exercise that you enjoy. Start slowly and build up. Even 5 minutes is helpful. Aimfor a goal of 30 minutes, at least 3 times a week. You dont have to do 30 minutes in one session. Break it up and walk a little throughout the day. More Helpful Tips Start easy. Slowly work up to doing more. Talk with your healthcare provider about the best exercises for you. Call senior centers or health clubs about exercise programs. If needed, have a family member watch you walk every so often to check your stability. Exercise with a friend. Choose an activity you both enjoy. Try exercises that you can do anytime, anywhere. Here are two examples. Have someone with you when you first try these: Practice walking by placing one foot right in front of the other. Stand up and sit down 10 times. Repeat this throughout the day. [employer] Patient Education Copyright 2008 [employer] except where otherwise noted. Preventing Falls: Moving Safely Using a Cane or Walker (This education is for all patients over 65 regardless of symptoms) Keep the cane away from your feet so you dont trip. A walking aid, such as a cane or walker, can help you stay more independent and avoid falls. Remember to keep your walking aid within easy reach when youre in a chair or in bed. And learn how to use it safely so you dont injure yourself. Using a Cane If you have a stronger side, hold the cane on that side. Get your balance. Move the cane and your weaker leg forward. Support your weight on both the cane and your weaker side. Step with your stronger leg. Start again from step 1. If youre using a folding walker, be sure you know how to lock it open. Check that its locked open before each use. Using a Walker Roll the walker (or lift it, if youre using one without wheels) forward about 12 inches. Step forward with your weaker leg first. Use the walker to help keep your balance. Bring your other foot forward to the center of the walker. Start again from step 1. Helpful Tips Check with your healthcare provider about the right walking aid to use. Ask about a walker with a seat attached. Check the tips of your cane or walker to make sure they have nonskid covers. Move slowly from room to room. Dont lauren. Sit down to get dressed. Use a michelle pack or backpack to keep your hands free. Get help for jobs that mean climbing, even on a stepstool. [employer] Patient Education Copyright 2008 - 2010 [employer] except where otherwise noted. Treating Urinary Incontinence in Men (This education is for all patients over 65 regardless of symptoms) You can't always control the release of urine. You may leak urine. Or you may not be able to hold your urine until you can get to a bathroom. This is called urinary incontinence. The problem can be managed. Talk to your doctor about your treatment options. Taking Medications Prescription medications may help you. They may: Help the sphincter to work better. (This is the muscle that closes to keep urine from leaking out of the bladder.) Help stop the bladder from brigida too often to push urine out. Help the bladder muscles contract with more force. Help relax the sphincter muscle and allow urine to flow more freely. Making Changes to Your Routine Certain changes in your daily routine may help. These include: Avoiding caffeine and alcohol. Using timed voiding. This is following a schedule for drinking fluids and urinating. Doing Kegel exercises daily. These exercises involve tightening the muscles in your sphincter and around your bladder to help strengthen them. Your doctor can explain how to do them. Using a Catheter A catheter is a narrow tube that is inserted through the urethra into the bladder. It drains urine.A condom catheter covers the penis. It channels urine into a collection bag. It is worn most of thetime. Intermittent catheterization means inserting a catheter to drain the bladder, then removing it. This is done on a regular schedule. Having Surgery If other options don't work, surgery may be recommended. If surgery is an option, your healthcare provider can discuss it with you and explain its risks and benefits. Healing After Prostate Surgery Surgery on the prostate gland can cause incontinence. Most often, the incontinence is only for a short time. It clears up when healing is complete. Very rarely, prostate surgery can result in permanent incontinence. documented in this encounter Progress Notes * Jesus Cornejo MD - 04/13/2023 12:19 PM EST Subjective: Cole Canas is a 68 year old male. Chief Complaint Patient presents with Physical-Exam Pre op clearance HPI: 68-year-old seen today for pre operative evaluation as requested by Dr. Dominguez. He is tentatively scheduled for right knee replacement at [facility] on April 24. He had a left knee replacement surgery about 1 year ago and did well with the surgery and has done well with the left knee since. He continues to work -full-time through the summer months and now something less than full- time. He standing all day long and Um walking up and down hills commonly. Has not been bothered with exertional chest pain or in order in it shortness of breath. He is not aware of heart palpitations or racing. He does not have increasing lower leg edema or orthopnea. Does not have abnormal bleeding or bruising. He has already done his pretty anesthesia evaluation at [facility]. That included an EKG which showed sinus bradycardia with a rate of 59 per in unchanged from a previous EKG 1 year prior. His chest x-raywas unremarkable. CBC was unremarkable. Patient had a dobutamine stress echo done 4 years ago whichshowed no inducible ischemia and no significant abnormalities on echo. His past medical history does include hypertension, dyslipidemia, obstructive sleep apnea and obesity. He has dropped 10 lb in the last 6 months purposely. Patient Active Problem List Diagnosis Code Dermatitis L30.9 UNSPECIFIED GASTRITIS K29.70, K29.90 Chronic rhinitis J31.0 Adjustment disorder with depressed mood F43.21 HTN, goal below 140/90 I10 History of tobacco use Z87.891 Esophageal reflux K21.9 Chest pain, non-cardiac R07.89 DYSLIPIDEMIA, GOAL TO BE DETERMINED E78.5 Chronic midline low back pain with bilateral sciatica M54.41, M54.42, G89.29 Body mass index (BMI) of 45.0 to 49.9 in adult ([facility]) Z68.42 Obstructive sleep apnea G47.33 Pain in both knees M25.561, M25.562 Type 2 diabetes mellitus with diabetic mononeuropathy, without long-term current use of insulin ([facility]) E11.41 Current Outpatient Medications Medication Sig Dispense Refill aspirin 81 MG chewable tablet Take 1 Tablet by mouth in the morning. with food.. 100 Tab 5 Cholecalciferol (VITAMIN D3) 5000 UNITS Tablet Take 1 Capsule by mouth in the morning. Acetaminophen 500 MG Oral Tablet Take 1 Tablet by mouth every 6 hours as needed. Losartan Potassium 100 MG Oral Tablet (Cozaar) Take 1 tablet by mouth once daily 90 Tablet 3 Atorvastatin Calcium 20 MG Oral Tablet (Lipitor) Take 1 Tablet by mouth in the morning. 90 Tablet 3 Blood Pressure Kit Large cuff, use as directed 1 Kit 0 Multivitamin Men 50+ Oral Tablet Take by mouth. Baclofen 10 MG Oral Tablet (Lioresal) Take 1 Tablet by mouth in the morning and 1 Tablet before bedtime. 60 Tablet 1 Diclofenac Sodium 75 MG Oral Tablet Delayed Release (Voltaren) Take 1 Tablet by mouth in the morning and 1 Tablet before bedtime. With food.. 60 Tablet 0 hydroCHLOROthiazide 25 MG Oral Tablet (Hydrodiuril) Take 1 Tablet by mouth in the morning. (Patientnot taking: Reported on 04/13/2023) 90 Tablet 3 Gabapentin 300 MG Oral Capsule (Neurontin) Take 1 Capsule by mouth 2 times a day as needed (neck pain). (Patient not taking: Reported on 04/13/2023) 60 Capsule 5 No current facility-administered medications for this visit. Review of patient's allergies indicates: No Known Allergies Objective: BP 138/76 | Pulse 67 | Temp 36.7 C (98 F) (Temporal Artery) | Resp 20 | Ht 1.676 m (5' 6") | Wt131.9 kg (290 lb 12.8 oz) | SpO2 95% | BMI 46.94 kg/m | BSA 2.48 m Physical Exam: CONST: alert, pleasant, no acute distress HEAD: normocephalic, atraumatic NECK: supple, soft, no adenopathy Eyes - PERRLA, EOM'I OROPHARYNX: clear, no swelling or erythema, moist CV: regular rate and rhythm, no murmur CHEST: clear to auscultation bilaterally, no rales or wheezing ABD: soft, non tender, non distended, no masses or hepatosplenomegaly EXT: no edema, no joint swelling or deformities, NEURO: AAOx3, no gross focal deficits, cerebellar signs normal, affect appropriate MENTAL STATUS: no evidence of thought disorder, no delusional thought, no evidence of paranoia, thought is non-tangential. SKIN: no rash or significant lesions ASSESSMENT/PLAN: 1. Severe osteoarthritis right knee-the patient is considered to be medically optimized for the planned surgery and therefore no further evaluation necessary. I did suggest that he bring his CPAP machine to use the night after surgery. He knows to stop his aspirin and diclofenac at least 7 days prior to surgery. 2. Hypertension : He should take his losartan 100 mg the morning of surgery. He will not take his hydrochlorothiazide the morning of surgery. He can take losartan 100 mg and hydrochlorothiazide 25 mgdaily beginning the day after surgery 3. Hyperlipidemia: Patient remains on generic Lipitor 20 mg daily although does not need to use that during hospitalization 4. Jesus Cornejo MD documented in this encounter Nursing Notes * Toma Fragoso LPN - 04/13/2023 12:09 PM EST The patient has been properly identified by confirmation of name and date of . Chief Complaint Patient presents with Physical-Exam Pre op clearance documented in this encounter Plan of Treatment Upcoming Encounters Date Type Department Care Team (Late st Contact Info) Description 08/29/2023 9:30 AM EDT Procedure Only Endoscopy, [place] [address] [place] [id number] Iqra Diaz MD [address] [place] [id number] 10/04/2023 3:30 PM EDT Office Visit [facility] [address] [place] [phone] Madeline David CRNP [address] [place] [id number] Health Maintenance Due Date Last Done Comments Diabetic Foot Exam 1973 Zoster Vaccines (1 of 2) 2005 Hepatitis B (1 of 3 - Risk 3-dose series) 2015 COLONOSCOPY-EVERY 5 YRS AGES 18-100 12/14/2021 12/14/2016, 07/24/2008 COVID-19 Vaccine (3 - 2022- season) 2023 12/24/2020, 12/02/2020 Influenza Vaccine (FLU shot) (#1) 2023 05/16/2018 Albumin/Creatinine Ratio 05/26/2023 05/26/2022, 03/05 Depression Screening 08/24/2023 08/23/2022 Diabetic Eye Exam 09/12/2023 09/11/2022 HbA1c 10/03/2023 04/04/2023, 09/02, 05/26/2022, Additional history exists GFR 04/04/2024 04/04/2023, 09/02, 03/03/2022, Additional history exists Lipid Panel 05/26/2027 05/26/2022, 03/05, 01/07/2020, Additional history exists DTaP,Tdap,and Td Vaccines [...] Not on filedocumented as of this encounter Visit Diagnoses Diagnosis Risk and functional assessment- Primary Screening for unspecified condition documented in this encounter Advance Directives Latest Code Status on File Code Status Date Activated Date Inactivated Comments Full Code 03/19/2008 2:32 PM 03/19/2008 11:12 PM Care Teams Earthmoving Plant Operator Relationship Specialty Start Date End Date Jesus Cornejo MD [address] [place] [address] PCP - General 04/28/08 documented as of this encounter
--- OUTSIDE RECORDS SUMMARY | 2023-04-24 06:21 | External Medical Summary | Summary of Care ---
Author Name Unknown Organization [facility] Address [address] [place] [address] Phone [phone] Care Team Providers Care Supervisor Sanding Name Role Phone Jesus Cornejo MD Primary Care Provider [phone] Reason for Visit * Reason Onset Date Comments Health Maintenance 04/05/2023 Encounter Details Date Type Department Care Team (Late st Contact Info) Description 04/05/2023 Telephone [facility] [address] [place] [address] Jesus Cornejo MD [address] [place] [address] Health Maintenance Allergies No known active allergiesdocumented as of this encounter (statuses as of 04/12/2023) Medications Medication Sig Dispensed Refills Start Date [...] Active Losartan Potassium 100 MG Oral Tablet (Cozaar)Indications: HTN, goal below 140/90 Take 1 tablet by mouth once daily 90 Tablet 3 05/15/2022 Active Atorvastatin Calcium 20 MG Oral Tablet (Lipitor)Indications :Dyslipidemia, goal to be determined Take 1 Tablet by mouth in the morning. 90 Tablet 3 05/25/2022 Active Blood Pressure KitIndications:HTN, goal below 140/90 Large cuff, use as directed 1 Kit 0 08/23/2022 Active Multivitamin Men 50+ Oral Tablet Take by mouth. 0 Active hydroCHLOROthiazide 25 MG Oral Tablet (Hydrodiuril)Indicat ions:HTN, goal below 140/90 Take 1 Tablet by mouth in the morning. 90 Tablet 3 09/12/2022 Active Gabapentin 300 MG Oral Capsule (Neurontin) Take 1 Capsule by mouth 2 times a day as needed (neck pain). 60 Capsule 5 09/18/2022 Active Baclofen 10 MG Oral Tablet (Lioresal) Take 1 Tablet by mouth in the morning and 1 Tablet before bedtime. 60 Tablet 1 09/18/2022 Active Diclofenac Sodium 75 MG Oral Tablet Delayed Release (Voltaren) Take 1 Tablet by mouth in the morning and 1 Tablet before bedtime. With food.. 60 Tablet 0 02/13/2023 Active documented as of this encounter (statuses as of 04/12/2023) Active Problems Problem Noted Date Diagnosed Date [...] as of this encounter (statuses as of 04/12/2023) Resolved Problems Problem Noted Date Diagnosed Date [...] as of this encounter (statuses as of 04/12/2023) Immunizations Name Administration Dates Next Due COVID-19 mRNA, LNP-s, No Pre serve, 2-Dose Series (Pfizer) 12/24/2020,12/02/2020 Pneumococcal Conjugate Vacci ne, 20-valent ([id number]) 05/25/2022 Pneumococcal Polysaccharide PPV23 (Pneumovax) 10/13/2009 SEASONAL [...] encounter Miscellaneous Notes * Telephone Encounter - Hortencia Blake LPN - 04/05/2023 9:11 AM EDT Care Gaps Comprehensive Care Outreach Last Office/Telemedicine Visit: 09/18/2022 (in office), Visit date not found (telemedicine) Next Office Visit: 04/13/2023 Hemoglobin AIC Results: Lab Results Component Value Date/Time HEMOGLOBIN A1C - [facility] 6.2 (H) 09/18/2022 09:14 AM HEMOGLOBIN A1C - [facility] 5.7 (H) 05/26/2022 08:47 AM HEMOGLOBIN A1C - [facility] 6.5 (H) 01/10/2022 11:03 AM Reviewed Health Maintenance below: Health Maintenance Topic Date Due Diabetic Foot Exam Never done Zoster Vaccines (1 of 2) Never done Hepatitis B (1 of 3 - Risk 3-dose series) Never done COLONOSCOPY-EVERY 5 YRS AGES 18-100 12/14/2021 Influenza Vaccine (FLU shot) (1) 02/02/2023 COVID-19 Vaccine (3 - season) 2023 HbA1c 03/20/2023 Albumin/Creatinine Ratio 05/26/2023 FOOT COLON ALREADY SCHEDULED LAB ADD LIPID Care Gap Outreach Action Taken: Left message documented in this encounter Plan of Treatment Upcoming Encounters Date Type Department Care Team (Late st Contact Info) Description 04/13/2023 12:00 PM EST Office Visit [facility] [address] [place] [address] Jesus Cornejo MD [address] [place] [address] 08/29/2023 9:30 AM EDT Procedure Only Endoscopy, [place] [address] [place] [phone] Iqra Diaz MD [address] [place] [id number] 10/04/2023 3:30 PM EDT Office Visit [facility] [address] [place] [phone] Madeline David CRNP [address] [place] [id number] Health Maintenance Due Date Last Done Comments [...] 2:32 PM 03/19/2008 11:12 PM Care Teams Supervisor Sanding Relationship Specialty Start Date End Date Jesus Cornejo MD [address] [place] [address] PCP - General 04/28/08 documented as of this encounter
--- OUTSIDE RECORDS SUMMARY | 2023-04-24 06:21 | External Medical Summary | Summary of Care ---
Author Name Unknown Organization [facility] Address [address] [place] [address] Phone [phone] Care Team Providers Care Trainmaster Name Role Phone Jesus Cornejo MD Primary Care Provider [phone] Reason for Visit * Reason Onset Date Comments Health Maintenance 04/05/2023 Encounter Details Date Type Department Care Team (Late st Contact Info) Description 04/05/2023 Telephone [facility] [address] [place] [address] Jesus Cornejo MD [address] [place] [address] Health Maintenance Allergies No known active allergiesdocumented as of this encounter (statuses as of 04/10/2023) Medications Medication Sig Dispensed Refills Start Date [...] as of this encounter (statuses as of 04/10/2023) Active Problems Problem Noted Date Diagnosed Date [...] as of this encounter (statuses as of 04/10/2023) Resolved Problems Problem Noted Date Diagnosed Date [...] as of this encounter (statuses as of 04/10/2023) Immunizations Name Administration Dates Next Due COVID-19 mRNA, LNP-s, No Pre serve, 2-Dose Series (Pfizer) 12/24/2020,12/02/2020 Pneumococcal Conjugate Vacci ne, 20-valent ([id number]) 05/25/2022 Pneumococcal Polysaccharide PPV23 (Pneumovax) 10/13/2009 SEASONAL [...] Description 04/13/2023 12:00 PM EST Office Visit [facility] [address] [place] [address] Jesus Cornejo MD [address] [place] [address] 08/29/2023 9:30 AM EDT Procedure Only Endoscopy, [place] [address] [place] [phone] Iqra Diaz MD [address] [place] [phone] 10/04/2023 3:30 PM EDT Office Visit [facility] [address] [place] [phone] Madeline David CRNP [address] [place] [phone] Health Maintenance Due Date Last Done Comments [...] 2:32 PM 03/19/2008 11:12 PM Care Teams Trainmaster Relationship Specialty Start Date End Date Jesus Cornejo MD [address] [place] [address] PCP - General 04/28/08 documented as of this encounter
--- OUTSIDE RECORDS SUMMARY | 2023-04-24 06:22 | External Medical Summary | Summary of Care ---
Author Name Unknown Organization [facility] Address [address] [place] [address] Phone [phone] Care Team Providers Care Consumer Experience Consultant Name Role Phone Jesus Cornejo MD Primary Care Provider [phone] Encounter Details Date Type Department Care Team (Late st Contact Info) Description 03/27/2023 Telephone [facility] [address] [place] [address] Jesus Cornejo MD [address] [place] [address] Allergies No known active allergiesdocumented as of this encounter (statuses as of 03/27/2023) Medications Medication Sig Dispensed Refills Start Date [...] as of this encounter (statuses as of 03/27/2023) Active Problems Problem Noted Date Diagnosed Date [...] as of this encounter (statuses as of 03/27/2023) Resolved Problems Problem Noted Date Diagnosed Date [...] as of this encounter (statuses as of 03/27/2023) Immunizations Name Administration Dates Next Due COVID-19 mRNA, LNP-s, No Pre serve, 2-Dose Series (Pfizer) 12/24/2020,12/02/2020 Pneumococcal Conjugate Vacci ne, 20-valent ([id number]) 05/25/2022 Pneumococcal Polysaccharide PPV23 (Pneumovax) 10/13/2009 SEASONAL [...] encounter Miscellaneous Notes * Telephone Encounter - HAILEY Olea - 03/27/2023 10:49 AM EDT Spoke to pt, appt rescheduled to 08/28 * Telephone Encounter - HAILEY Castrejon - 03/27/2023 8:58 AM EDT Patient is having a knee replacement on April 24 with [facility]. Patient is scheduled for Colonoscopy on April 25 at [facility]. Please call patient to reschedule his Colonoscopy as he is having surgery on the . Thank you. documented in this encounter Plan of Treatment Upcoming Encounters Date Type Department Care Team (Late st Contact Info) Description 04/13/2023 12:00 PM EST Office Visit [facility] [address] [facility] [phone] Jesus Cornejo MD [address] [facility] [place] [address] 08/29/2023 9:30 AM EDT Procedure Only Endoscopy, [place] [address] [place] [address] Iqra Diaz MD [address] [place] [address] 10/04/2023 3:30 PM EDT Office Visit Sleep Disorders Ctr [facility] [address] [place] [phone] Madeline David CRNP [address] [place] [address] Health Maintenance Due Date Last Done Comments DIABETES-EYE EXAM 1973 Diabetic Foot Exam 1973 Zoster Vaccines (1 of 2) 2005 Hepatitis B (1 of 3 - Risk 3-dose series) 2015 COLONOSCOPY-EVERY 5 YRS AGES 18-100 12/14/2021 12/14/2016, 07/24/2008 COVID-19 Vaccine (3 - season) 2023 12/24/2020, 12/02/2020 Influenza Vaccine (FLU shot) (#1) 2023 05/16/2018 HbA1c 03/20/2023 09/18/2022, 05/05, 01/10/2022 Albumin/Creatinine Ratio 05/26/2023 05/26/2022, 03/05 Depression Screening 08/24/2023 08/23/2022 GFR 09/19/2023 09/18/2022, 02/04, 01/10/2022, Additional history exists Lipid Panel 05/26/2027 05/26/2022, [...] 2:32 PM 03/19/2008 11:12 PM Care Teams Consumer Experience Consultant Relationship Specialty Start Date End Date Jesus Cornejo MD [address] [place] [address] PCP - General 04/28/08 documented as of this encounter
--- OUTSIDE RECORDS SUMMARY | 2023-04-24 06:22 | External Medical Summary | Summary of Care ---
Author Name Unknown Organization [facility] Address [address] [place] [address] Phone [phone] Care Team Providers Care Robotics Technician Name Role Phone Jesus Cornejo MD Primary Care Provider [phone] Reason for Referral * Evaluate & Treat - Unlimited Visits (Within 30 days (routine)) - Pending Review Specialty Diagnoses / Procedures Referred By Christophe t Referred To Contact Physical Therapy / Physical Medicine And Rehab Diagnoses Arthritis of right knee Patellar tendonitis of right knee William Almeida MD [address] [place] [address] Referral ID Status Reason Start Date Expiration Date Visits Requested Visits Authorized [id number] Pending Review Specialty Services Required 02/13/[phone] Question Answer Referral Priority Within 30 days (routine) Comments Right knee patellar tendonitis + severe OA. Considering surg. Reason for Visit * Reason Comments Acute Pt reports right kne e pain over the last 2 weeks. Had left knee replaced and [facility] wanted to do both knees-pt declined due to work. Encounter Details Date Type Department Care Team Description 02/13/2023 Office Visit Family [facility] [address] [place] [address] William Almeida MD [address] [place] [address] Arthritis of right knee*; Patellar tendonitis of right knee Allergies No known active allergiesdocumented as of this encounter (statuses as of 02/13/2023) Medications Medication Sig Dispensed Refills Start Date [...] as of this encounter (statuses as of 02/13/2023) Active Problems Problem Noted Date Type 2 diabetes mellitus wit h diabetic mononeuropathy, without long-term current use of insulin 07/06/2022 Pain in both knees 10/27/2020 Obstructive sleep apnea 08/17/2020 Body mass index (BMI) of 45.0 to 49.9 in adult 08/12/2018 Overview: Per Obesity protocol #1 - Per Obesity Taxonomy 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 Chest pain, non-cardiac 03/26/2008 Esophageal reflux 03/19/2008 History of tobacco use 07/12/2007 Adjustment disorder with depressed mood 01/22/2007 HTN, goal below 140/90 01/22/2007 Chronic rhinitis 09/05/2004 Dermatitis 07/01/2002 UNSPECIFIED GASTRITIS 07/01/2002 documented as of this encounter (statuses as of 02/13/2023) Resolved Problems Problem Noted Date Resolved Date Prediabetes 06/12/2022 07/19/2022 Overview: Per Prediabetes protocol Body mass index (BMI) of 40.0 to 44.9 in adult 1 08/13/2018 Overview: Per Obesity protocol #1 - Per Obesity Taxonomy Body mass index (BMI) of 45.0 to 49.9 in adult 0 01/15/2018 03/18/2018 Overview: Per Obesity protocol #1 - Per Obesity Taxonomy Body mass index (BMI) of 50.0 to 59.9 in adult 0 07/17/2017 01/19/2018 Overview: Per Obesity protocol #1 - Per Obesity Taxonomy Body mass index (BMI) of 45.0 to 49.9 in adult 1 07/25/2017 Overview: Per Obesity protocol #1 - Per Obesity Taxonomy Chronic midline low back pain without sciatica 0 02/28/2017 10/03/2017 Polyuria 09/07/2009 07/12/2017 Obesity, BMI not known 08/31/2009 7 Overview: Per Obesity Taxonomy Heart failure with preserved left ventricular function (HFpEF) 04/01/2009 07/28/2016 Overview: Per Heart Failure Taxonomy Protocol. Mixed dyslipidemia 03/26/2008 05/13/2009 Overview: Per Lipid Taxonomy. Angina pectoris 03/19/2008 06/12/2008 Hypertensive heart failure 03/19/200804/01 Overview: Per Heart Failure Taxonomy Protocol. Obesity, BMI not known 01/22/2007 0 Overview: Per Obesity Taxonomy ACUTE STRESS 01/22/2007 07/20/2020 Screening for prostate cancer 01/22/2007 Overview: Resolved per Screening Diagnosis Protocol #6 Otalgia 09/05/2004 07/12/2017 DYSFUNCT EUSTACHIAN TUBE 09/05/2004 018 ACUTE SINUSITIS NOS 09/05/2004 07/12/2017 Overview: RESOLVED MEDIAL EPICONDYLITIS, LEFT 09/05/200407/12 ACUTE PHARYNGITIS 07/01/2002 07/23/2008 Overview: Resolved per Benign Acute Dxs Protocol #3 UNSPECIFIED GASTRITIS 07/01/2002 07/12/2017 documented as of this encounter (statuses as of 02/13/2023) Immunizations Name Administration Dates Next Due COVID-19 mRNA, LNP-s, No Pre serve, 2-Dose Series (Pfizer) 12/24/2020,12/02/2020 Pneumococcal Conjugate Vacci ne, 20-valent ([id number]) 05/25/2022 Pneumococcal Polysaccharide PPV23 (Pneumovax) 10/13/2009 Seasonal Influenza, PF, 6 mo ns & Above, IM , (Flulaval) 05/16/2018 TDAP (age 10 and older)(Boostrix) 10/09/2018 [...] = 0.6 oz pur e alcohol) occ Sex Assigned at Date Recorded Male 10/09/2018 3:21 PM E DT Job Start Date Occupation Industry Not on file Not on file Not on file documented as of this encounter Last Filed Vital Signs Vital Sign Reading Time Taken Comments Blood Pressure 136/72 02/13/2023 5:55 PM EDT Pulse 61 02/13/2023 5:55 PM EDT Temperature - - Respiratory Rate 16 02/13/2023 5:55 PM EDT Oxygen Saturation 94% 02/13/2023 5:55 PM EDT Inhaled Oxygen Concentration - - Weight - - Height - - Body Mass Index - - documented in this encounter Progress Notes * William Almeida MD - 02/13/2023 6:17 PM EDT SUBJECTIVE: Cole Canas is a 68 year old male here for Acute (Pt reports right knee pain over the last 2 weeks. Had left knee replaced and [facility] wanted to do both knees-pt declined due to work. ) . Complains of flare-up of his right knee pain over the last couple weeks. No recent traumas. Has a known history of severe arthritis in the right knee. He called his orthopedist Dr. Dominguez but was toldhe could not be in for another month or so. He has been taking multiple leave a day without much relief he did stop them 3 days ago as he was worried he was taking too much. Otherwise feeling okay No buckling no weakness no locking. Hurts with standing and walking. He continues to work full-timeon his feet. Went to ER 02/05/23 for pain, xray showed mod-severe OA Physical: BP 136/72 | Pulse 61 | Resp 16 | SpO2 94% General-No apparent Distress Head, Eyes, Ears, Nose, Throat--Normocephalic, atraumatic Neck-Supple Mskel FROM right knee. Mild crepitus. Tender right patella tendon. Extremities--no edema Neuro-alert & oriented x3 (M17.11) Arthritis of right knee (primary encounter diagnosis) Plan: PHYSICAL THERAPY REFERRAL OP Trial diclofenac 75mg Counseled on use, risk, benefits, and alternatives of medications. Questions answered, patient expressed understanding. Start PT for tendonitis Discussed surgery is treatment for severe OA Defer steroid injection as could delay surgery F/u Dr Dominguez as sched (M76.51) Patellar tendonitis of right knee Plan: PHYSICAL THERAPY REFERRAL OP Cc: pcp (This note was completed using the dictation program Fluency Direct. As such, there may be misspellings, word substitutions, or other variations that should not change the essence of the clinical content of this encounter note.If there is need for further clarification, please direct questions to the provider listed above.) William Almeida MD documented in this encounter Nursing Notes * Sonia Choi LPN - 02/13/2023 5:55 PM EDT The patient has been properly identified by confirmation of name and date of . Chief Complaint Patient presents with Acute Pt reports right knee pain over the last 2 weeks. Had left knee replaced and [facility] wanted to do both knees-pt declined due to work. documented in this encounter Plan of Treatment Upcoming Encounters Date Type Specialty Care Team Description 04/25/2023 Procedure Only Endoscopy Iqra Diaz MD [address] [place] [id number] 10/04/2023 Office Visit Sleep Disorders Madeline David CRNP [address] [place] [address] Scheduled Referrals Name Type Priority Associated Diagnoses Orde r Schedule PHYSICAL THERAPY REFERRAL OP Referral Within 30 days (routine) Arthritis of right knee Patellar tendonitis of right knee Ordered: 02/13/2023 Health Maintenance Due Date Last Done Comments DIABETES-EYE EXAM 1973 Diabetic Foot Exam 1973 Zoster Vaccines (1 of 2) 2005 COVID-19 Vaccine (3 - Pfizer series) 02/18/2021 12/24/2020, 12/02/2020 COLONOSCOPY-EVERY 5 YRS AGES 18-100 12/14/2021 12/14/2016, 07/24/2008 Influenza Vaccine (FLU shot) (#1) 2023 05/16/2018 [...] on patient's age to complete this topic Hepatitis B Aged Out No longer eligi ble based on patient's age to complete this topic MENINGOCOCCAL (MENACTRA/MENVEO) Aged Out No longer eligible based on patient's age to complete this topic documented as of this encounter Medical Devices Not on filedocumented as of this encounter Visit Diagnoses Diagnosis Arthritis of right knee- Primary Unspecified arthropathy, lower leg Patellar tendonitis of right knee documented in this encounter Advance Directives Latest Code Status on File Code Status Date Activated Date Inactivated Comments Full Code 03/19/2008 2:32 PM 03/19/2008 11:12 PM Care Teams Robotics Technician Relationship Specialty Start Date End Date Jesus Cornejo MD [address] [place] [address] PCP - General 04/28/08 documented as of this encounter"
--- OUTSIDE RECORDS SUMMARY | 2023-04-24 06:22 | External Medical Summary | Summary of Care ---
Author Name Unknown Organization [facility] Address [address] [place] [address] Phone [phone] Care Team Providers Care Assistant Operator Name Role Phone Jesus Cornejo MD Primary Care Provider [phone] Reason for Visit * Reason Onset Date Comments Health Maintenance 04/05/2023 Encounter Details Date Type Department Care Team (Late st Contact Info) Description 04/05/2023 Telephone [facility] [address] [place] [address] Jesus Cornejo MD [address] [place] [address] Health Maintenance Allergies No known active allergiesdocumented as of this encounter (statuses as of 04/05/2023) Medications Medication Sig Dispensed Refills Start Date [...] as of this encounter (statuses as of 04/05/2023) Active Problems Problem Noted Date Diagnosed Date [...] as of this encounter (statuses as of 04/05/2023) Resolved Problems Problem Noted Date Diagnosed Date [...] as of this encounter (statuses as of 04/05/2023) Immunizations Name Administration Dates Next Due COVID-19 mRNA, LNP-s, No Pre serve, 2-Dose Series (Pfizer) 12/24/2020,12/02/2020 Pneumococcal Conjugate Vacci ne, 20-valent ([id number]) 05/25/2022 Pneumococcal Polysaccharide PPV23 (Pneumovax) 10/13/2009 SEASONAL [...] Description 04/13/2023 12:00 PM EST Office Visit [facility] [address] [place] [address] Jesus Cornejo MD [address] [place] [address] 08/29/2023 9:30 AM EDT Procedure Only Endoscopy, [place] [address] [place] [address] Iqra Diaz MD [address] [place] [address] 10/04/2023 3:30 PM EDT Office Visit Sleep Disorders Ctr [facility] [address] [place] [phone] Madeline David CRNP [address] [place] [address] Health Maintenance Due Date Last Done Comments [...] 08/24/2023 08/23/2022 Diabetic Eye Exam 09/12/2023 09/11/2022 GFR 09/19/2023 09/18/2022, 02/04, 01/10/2022, Additional history [...] 2:32 PM 03/19/2008 11:12 PM Care Teams Assistant Operator Relationship Specialty Start Date End Date Jesus Cornejo MD [address] [place] [address] PCP - General 04/28/08 documented as of this encounter
--- OUTSIDE RECORDS SUMMARY | 2023-04-24 06:22 | External Medical Summary | Summary of Care ---
Author Name Unknown Organization [facility] Address [address] [place] [address] Phone [phone] Care Team Providers Care Switch Technician Name Role Phone Jesus Cornejo MD Primary Care Provider [phone] Encounter Details Date Type Department Care Team (Late st Contact Info) Description 03/27/2023 Telephone [facility] [address] [place] [address] Jesus Cornejo MD [address] [place] [address] Allergies No known active allergiesdocumented [...] (Pfizer) 12/24/2020,12/02/2020 Pneumococcal Conjugate Vacci ne, 20-valent ([id number]) 05/25/2022 Pneumococcal Polysaccharide PPV23 (Pneumovax) 10/13/2009 SEASONAL [...] Miscellaneous Notes * Telephone Encounter - HAILEY Castrejon - 03/27/2023 8:58 AM EDT Patient is having a knee replacement on April 24 with [facility]. Patient is scheduled for Colonoscopy on April 25 at [facility]. Please call patient to reschedule his Colonoscopy as he is having surgery on the . Thank you. documented in this encounter Plan of Treatment Upcoming Encounters Date Type Department Care Team (Late st Contact Info) Description 04/13/2023 12:00 PM EST Office Visit [facility] [address] [place] [facility] [phone] Jesus Cornejo MD [address] [place] [address] 04/25/2023 9:30 AM EST Procedure Only Endoscopy, [place] [address] [place] [address] Iqra Diaz MD [address] [place] [address] 10/04/2023 3:30 PM EDT Office Visit Sleep Disorders Ctr [facility] [address] [place] [phone] Madeline David CRNP [address] [place] [address] Health Maintenance Due Date Last Done Comments DIABETES-EYE EXAM 1973 Diabetic Foot Exam 1973 Zoster Vaccines (1 of 2) 2005 Hepatitis B (1 of 3 - Risk 3-dose series) 2015 COLONOSCOPY-EVERY 5 YRS AGES 18-100 12/14/2021 12/14/2016, 07/24/2008 COVID-19 Vaccine ( season) 2023 12/24/2020, 12/02/2020 Influenza Vaccine (FLU [...] 2:32 PM 03/19/2008 11:12 PM Care Teams Switch Technician Relationship Specialty Start Date End Date Jesus Cornejo MD [address] [place] [address] PCP - General 04/28/08 documented as of this encounter
--- OUTSIDE RECORDS SUMMARY | 2023-04-24 06:22 | External Medical Summary | Summary of Care ---
Author Name Unknown Organization [facility] Address [address] [place] [address] Phone [phone] Care Team Providers Care Cotton Machine Operator Name Role Phone Jesus Cornejo MD Primary Care Provider [phone] Encounter Details Date Type Department Care Team Description 02/19/2023 Orders Only [facility] [address] [place] [address] Tonya Stanley CHRA [employer] Other*[id number] Allergies No known active allergiesdocumented as of this encounter (statuses as of 02/19/2023) Medications Medication Sig Dispensed Refills Start Date [...] as of this encounter (statuses as of 02/19/2023) Active Problems Problem Noted Date Type 2 [...] as of this encounter (statuses as of 02/19/2023) Resolved Problems Problem Noted Date Resolved Date [...] as of this encounter (statuses as of 02/19/2023) Immunizations Name Administration Dates Next Due COVID-19 mRNA, LNP-s, No Pre serve, 2-Dose Series (Pfizer) 12/24/2020,12/02/2020 Pneumococcal Conjugate Vacci ne, 20-valent ([id number]) 05/25/2022 Pneumococcal Polysaccharide PPV23 (Pneumovax) 10/13/2009 Seasonal Influenza, PF, 6 mo ns & Above, IM , (Flulaval) 05/16/2018 TDAP (age 10 and older)(Boostrix) 10/09/2018 TDAP (age 11 and older)(Adacel) 09/09/19,08/27/2008(Deferred: Patient Refused) documented as of this encounter [...] on file documented as of this encounter Plan of Treatment Upcoming Encounters Date Type Specialty Care Team Description 04/25/2023 Procedure Only Endoscopy Iqra Diaz MD [address] [place] [address] 10/04/2023 Office Visit Sleep Disorders Madeline David CRNP [address] [place] [address] Scheduled Orders Name Type Priority Associated Diagnoses Orde r Schedule MYCODE SUBSEQUENT ADULT Lab Routine [employer] Other*[id number] Every 6 Months for 2 Occurrences starting 02/19/2023 until 03/10/2024 Health Maintenance Due Date Last Done Comments [...] as of this encounter Visit Diagnoses Diagnosis [employer] Other*[id number] documented in this encounter Advance Directives Latest Code Status on File Code Status Date Activated Date Inactivated Comments Full Code 03/19/2008 2:32 PM 03/19/2008 11:12 PM Care Teams Cotton Machine Operator Relationship Specialty Start Date End Date Jesus Cornejo MD [address] [place] [address] PCP - General 04/28/08 documented as of this encounter
--- OUTSIDE RECORDS SUMMARY | 2023-04-24 06:22 | External Medical Summary | Summary of Care ---
Author Name Unknown Organization [facility] Address [address] [place] [address] Phone [phone] Care Team Providers Care User Interface Engineer Name Role Phone Jesus Cornejo MD Primary Care Provider [phone] Encounter Details Date Type Department Care Team (Late st Contact Info) Description 04/04/2023 Result Scan Unspecified Department <No scans attached> Allergies No known active allergiesdocumented as of this encounter (statuses as of 04/06/2023) Medications Medication Sig Dispensed Refills Start Date [...] as of this encounter (statuses as of 04/06/2023) Active Problems Problem Noted Date Diagnosed Date [...] as of this encounter (statuses as of 04/06/2023) Resolved Problems Problem Noted Date Diagnosed Date [...] as of this encounter (statuses as of 04/06/2023) Immunizations Name Administration Dates Next Due COVID-19 mRNA, LNP-s, No Pre serve, 2-Dose Series (Pfizer) 12/24/2020,12/02/2020 Pneumococcal Conjugate Vacci ne, 20-valent ([id number]) 05/25/2022 Pneumococcal Polysaccharide PPV23 (Pneumovax) 10/13/2009 SEASONAL [...] Description 04/13/2023 12:00 PM EST Office Visit [facility] [address] [place] [address] Jesus Cornejo MD [address] [place] [address] 08/29/2023 9:30 AM EDT Procedure Only Endoscopy, [place] [address] [place] [address] Iqra Diaz MD [address] [place] [address] 10/04/2023 3:30 PM EDT Office Visit [facility] Disorders [facility]tr [facility] [place] [address] [place] [phone] Madeline David CRNP [address] [place] [address] Health Maintenance Due Date Last Done Comments Diabetic Foot Exam 1973 Zoster Vaccines (1 of 2) 2005 Hepatitis B (1 of 3 - Risk 3-dose series) 2015 COLONOSCOPY-EVERY 5 YRS AGES 18-100 12/14/2021 12/14/2016, 07/24/2008 COVID-19 Vaccine (3 - 2022- season) 2023 12/24/2020, 12/02/2020 Influenza Vaccine (FLU shot) (#1) 2023 05/16/2018 HbA1c 03/20/2023 04/04/2023, 09/02, 05/26/2022, Additional history exists Albumin/Creatinine Ratio 05/26/2023 05/26/2022, 03/05 Depression Screening 08/24/2023 08/23/2022 Diabetic Eye Exam 09/12/2023 09/11/2022 GFR 09/19/2023 04/04/2023, 09/02, 03/03/2022, Additional history exists Lipid [...] Not on filedocumented as of this encounter Procedures Procedure Name Priority Date/Time Associated Diagnosis Comments EKG SCANNED RESULT 04/04/2023 documented in this encounter Results * EKG SCANNED RESULT (04/04/2023) 04/04/2023 No Physician Data Unknown EKG documented in this encounter Advance Directives Latest Code Status on File Code Status Date Activated Date Inactivated Comments Full Code 03/19/2008 2:32 PM 03/19/2008 11:12 PM Care Teams User Interface Engineer Relationship Specialty Start Date End Date Jesus Cornejo MD [address] [place] [address] PCP - General 04/28/08 documented as of this encounter
[2023-04-24] MEDS ORDERED: BUPIVACAINE 0.25% PF 30 ML VIAL ONE (06:23)
[2023-04-24] MEDS ORDERED: BUPIVACAINE 0.5 % 5 MG/1 ML PF 10ML VIAL ONE (06:23)
--- NOTE | 2023-04-24 07:10 | History & Physical Bridge Note ---
Date of Service April 24, 2023 History & Physical Bridge Note I have examined the patient, reviewed the History & Physical and in the interval since the performance of the History & Physical I have noted the following changes of clinical significance: no changes noted
[2023-04-24] MEDS ORDERED: PROPOFOL IV EMULSION 10 MG/ML 20 ML VIAL IV ONE ×2 (07:12→09:41)
[2023-04-24] MEDS ORDERED: MIDAZOLAM HCL 1 MG/ML 2ML VIAL ONE (07:12)
[2023-04-24] MEDS ORDERED: fentaNYL citrate PF 100 MCG/2 ML VIAL ONE (07:12)
[2023-04-24] MEDS ORDERED: ONDANSETRON INJ 2 MG/ML 2 ML VIAL IV PRN ×2 (07:15→12:04)
[2023-04-24] MEDS ORDERED: ATROPINE SULFATE 0.1 MG/ML 10ML SYR IV PRN (07:15)
[2023-04-24] MEDS ORDERED: ePHEDrine sulfate 50 MG/ML AMP IV PRN (07:15)
[2023-04-24] MEDS ORDERED: fentaNYL citrate PF 100 MCG/2 ML VIAL IV PRN (07:15)
[2023-04-24] MEDS ORDERED: ONDANSETRON INJ 2 MG/ML 2 ML VIAL ONE (07:16)
[2023-04-24] MEDS ORDERED: ORTHO JOINT ANESTHETIC ONE (07:45)
[2023-04-24] MEDS ORDERED: ceFAZolin 330 MG/ML 1 GM VIAL ONE (08:48)
[2023-04-24] MEDS ORDERED: ePHEDrine sulfate 50 MG/ML AMP ONE (08:48)
[2023-04-24] MEDS ORDERED: ceFAZolin 1000MG 1,000 MG/7.5 ML SYR IV STA (09:51)
--- NOTE | 2023-04-24 09:51 | Operative Report ---
Post Operative Report Pre & Post Diagnosis Operation Date: 04/24/23 08:15 Pre-Op Diagnosis: Right Knee Osteoarthritis Post-Op Diagnosis: Right Knee Osteoarthritis I identified the patient and participated in the time-out.: Yes Procedure Operation Date: 04/24/23 08:15 Actual Procedures p Right Total Knee Arthroplasty(Right) Utilizing [employer] long block total knee arthroplasty size femur 6 tibia 5 poly 10 patella 32 joshua Dominguez DO Surgeon Vladimir Dominguez DO Straightener Demetrius RICHARDS Estimated Blood Loss 5 Findings Consistent with Post-Op Diagnosis Patient presents with severe end-stage DJD varus alignment subchondral sclerosis marginal osteophytes subchondral cystic changes moderate to large effusion varus alignment 8 degree flexion contracture Specimens Bone and cartilage Drains Medium bore Hemovac Anesthesia Type MAC Spinal Regional Complications none Disposition Accompanied Patient To Recovery: No Disposition: Recovery Room Indications Patient presents after failed attempts of conservative management occluding physical therapy anti-inflammatories relative rest activity modification corticosteroid injection Description of Procedure After proper prepping and draping of the Right lower extremity anterior midline incision was made over the region of the extensor extensor mechanism after meticulous hemostasis was obtained and maintained in subcutaneous tissues a medial parapatellar incision was made The patella was subluxed lateralward the medial lateral gutter were cleaned from any hypertrophic synovitis and scar tissue of the distal femoral block was placed and the distal femoral osteotomy cut was made subsequently the chamfers anterior and posterior osteotomy cuts were made utilizing the 4-in-1 block the tibia was subsequently subluxed anteriorward medial and ateral meniscal remnants were excised in their entirety remnants of the anterior and posterior cruciate ligaments were excised in their entirety excellent exposure of the proximal tibia was obtained the tibial osteotomy guide was placed on the proximal tibial osteotomy cut was made once again the knee was irrigated with copious amounts of sterile saline solution the patella was subsequently everted lateralward thickened scar tissue around the patella was removed the patella was subsequently cut utilizing a freehand technique and was drilled prepared for final preparation and placement of patella socially flexion-extension gaps were checked and the equal and symmetric trials were placed to the appropriate femoral and tibial trials with poly-spacer being placed for equal flexion and extension gaps and full range of motion including extension to 0 and flexion to 140 the trial components after having been taken to recovery range of motion was subsequently removed meticulous hemostasis was obtained and maintained subsequently a knee block injection of joint cocktail including ropivacaine 0.5% 150 mg. Bupivacaine 0.5% epinephrine 1-200,030 mL's toradol 30 mg dexamethasone 4 mg ketamine 10 mg clonidine 100 micrograms normal saline solution 30 mg was infiltrated into the soft tissues of the posterior knee medial lateral gutters and periosteal synovium special attention was paid to protect neurovascular structures at all times subsequently trial components having been removed the knee was irrigated with sterile saline solution. debris was removed the proximal tibia was subsequently prepared and was made ready for the placement of the tibial component tibial component was also cemented and tamped into position the femoral component was subsequently placed and cemented in the position the patellar component was subsequently cemented in position because hemostasis once again obtained and maintained wound having been thoroughly irrigated with debridement and debridement lavage was performed as well as a medial parapatellar incision closed with #1 Vicryl in interrupted fashion subcutaneous was closed with #2 Vicryl skin was closed with skin clips. PA-C was necessary for prepping and drapping as well as wound closure of deep fascia Sub cutaneous tissue and skin and was necessary for the case. A sterile compressive dressing was placed patient was taken to recovery in stable condition of report dictated by Alberto I attest to the content of the Intraoperative Record and any orders documented therein. Any exceptions are noted below.Due to the complex nature of the procedure, the entire surgery was performed with the operational assistance of Demetrius RICHARDS. The certified physical therapist assistant, under direct supervision, was involved in the actual performance of all aspects of the surgical procedure including hemostasis, tissue retraction and incision, instrument management, patient positioning, and wound closure. I attest to the content of the Intraoperative Record and any orders documented therein. Any exceptions are noted below.
--- NOTE | 2023-04-24 10:57 | XRay Report ---
XR knee RT 1 or 2V routine CLINICAL HISTORY: Surgical Post Op TECHNIQUE: 2 views of the right knee were obtained. Comparison: Comparison is made to knee radiographs 02/05/2023 FINDINGS: Patient is status post total knee arthroplasty with expected postsurgical changes including soft tiss ue swelling and subcutaneous emphysema. No periarticular lucency or hardware fracture is seen. IMPRESSION: Expected postoperative appearance status post placement of total knee arthroplasty. ACT 112: Negative or not required by law. Electronically signed by: Rony Pascual M.D. 04/24/2023 10:55 AM
[2023-04-24] MEDS ORDERED: MAGNESIUM HYDROXIDE SUSP 30 ML UDC PO PRN (12:04)
[2023-04-24] MEDS ORDERED: diphenhydrAMINE 50 MG/ML VIAL IV PRN (12:04)
[2023-04-24] MEDS ORDERED: BACLOFEN 10 MG TAB PO PRN (12:04)
[2023-04-24] MEDS ORDERED: bisacodyL 10 MG SUPP PR PRN (12:04)
[2023-04-24] MEDS ORDERED: NALOXONE HCL 0.4 MG/1 ML VIAL/CARP IV PRN (12:04)
[2023-04-24] MEDS ORDERED: HYDROmorphone INJ 0.5 MG/0.5 ML SYR IV PRN (12:04)
[2023-04-24] MEDS: SODIUM CHLORIDE 0.9% 1,000 ML IV SCH (12:32)
--- NOTE | 2023-04-24 14:17 | Anesthesiology Progress Note ---
Date of Service April 24, 2023 Anesthesia Post Procedure Vital Signs Vital Signs: Temp Pulse Pulse Resp BP Pulse Ox O2 Del Method 04/24/23 14:10 36.5 C 77 16 132/71 92 Room Air 04/24/23 13:06 36.4 C L 62 16 163/79 H 95 Room Air 04/24/23 12:36 36.6 C 60 16 149/77 H 97 Nasal Cannula 04/24/23 12:26 Nasal Cannula 04/24/23 12:08 36.5 C 73 16 137/79 94 Nasal Cannula 04/24/23 11:45 75 18 139/70 97 Nasal Cannula 04/24/23 11:30 65 18 138/67 95 Nasal Cannula 04/24/23 11:15 57 L 16 135/68 96 Nasal Cannula 04/24/23 11:05 36.4 C L 60 16 137/74 95 Nasal Cannula 04/24/23 10:55 66 18 138/67 96 Nasal Cannula 04/24/23 10:45 78 14 122/73 98 Room Air 04/24/23 10:35 82 14 132/70 93 Room Air 04/24/23 10:29 36.0 C L 80 16 122/65 95 Room Air 04/24/23 06:52 36.7 C 67 18 172/91 H 95 Room Air O2 Flow Rate 04/24/23 14:10 04/24/23 13:06 04/24/23 12:36 2 04/24/23 12:26 2 04/24/23 12:08 2 04/24/23 11:45 2 04/24/23 11:30 2 04/24/23 11:15 2 04/24/23 11:05 2 04/24/23 10:55 2 04/24/23 10:45 04/24/23 10:35 04/24/23 10:29 04/24/23 06:52 Pain Intensity Right Knee: Pain Intensity: 5 Transfer of Care Handoff Completed per policy Notes Mental Status: alert / awake / arousable Patient Amnestic to Procedure: Yes Nausea / Vomiting: adequately controlled Pain: adequately controlled Airway Patency, RR, SpO2: stable & adequate BP & HR: stable & adequate Hydration State: stable & adequate Neuraxial Anesthesia: was administered and sensory block is resolving Anesthetic Complications: no major complications apparent and Pt Satisfied with anesthetic care
[2023-04-24] MEDS: ACETAMINOPHEN 500 MG TAB PO SCH ×2 (14:38→21:11)
[2023-04-24] MEDS: oxyCODONE HCL IR 5 MG TAB (IMMEDIATE RELEASE) PO PRN (15:35)
[2023-04-24] MEDS: ceFAZolin 2000MG 2,000 MG/15 ML SYR IV SCH ×2 (16:30→23:01)
[2023-04-24] MEDS ORDERED: SENNA 8.6 MG TAB PO SCH (21:00)
[2023-04-24] MEDS: ASPIRIN 81 MG ECTAB PO SCH (21:12)
[2023-04-24] MEDS: DOCUSATE SODIUM 100 MG CAP PO SCH (21:13)
[2023-04-24] MEDS: CeleBREX 200 MG CAP PO SCH (21:13)
[2023-04-25] MEDS: SODIUM CHLORIDE 0.9% 1,000 ML IV SCH (00:06)
[2023-04-25] MEDS: oxyCODONE HCL IR 5 MG TAB (IMMEDIATE RELEASE) PO PRN ×2 (03:11→08:21)
[2023-04-25] MEDS: ACETAMINOPHEN 500 MG TAB PO SCH (05:43)
[2023-04-25 06:22] LABS: Hematocrit (blood only) 36.3 % (42.0-52.0); Hemoglobin 11.9 g/dl (14.0-18.0); Mean Corpuscular Hemoglobin 28.1 pg (25.0-34.0); Mean Corpuscular Hgb Conc 32.8 g/dL (32.0-36.0); Mean Corpuscular Volume 85.8 fL (80.0-100.0); Mean Platelet Volume 11.5 fL (9.4-12.4); Platelet Count 160 K/uL (130-400); RDW Standard Deviation 40.5 fL (36.4-46.3); Red Blood Count 4.23 M/uL (4.70-6.10); White Blood Count 13.77 K/ul (4.8-10.8)
[2023-04-25 06:35] LABS: BUN Creatinine Ratio 16.7 (10-20); Calcium 8.9 mg/dl (8.6-10.3); Creatinine Clr Calc Pharmacy 108.1 ml/min; Est GFR (African American) 104.3 ml/min; Potassium 4.1 mmol/L (3.5-5.1)
--- NOTE | 2023-04-25 07:16 | Orthopedic Progress Note ---
Date of Service April 25, 2023 Assessment & Plan (1) Arthritis of right knee: Plan: Day 1 status post right total knee arthroplasty PT/OT protocols. Weightbearing as tolerated. DVT prophylaxis-aspirin p.o. twice daily, SCDs, JEFRY mercedes. Pain management as written. DC planning-patient is planning for home health services upon discharge . Plan for discharge home today if progressing with PT. Admission and Anticipated Discharge Date Admission Date: April 24, 2023 Subjective Postop day 1 Patient sitting up in bed awake and alert. No complaints this morning. Pain is controlled. Denies shortness of breath, chest pain, lightheadedness. He is hoping to go home today. Physical Exam Physical Exam: Dressings are clean, dry, and intact. Calves are soft nontender. Neurovascular intact. Toes are mobile. Drain has been removed. He was having decreased drainage from the Hemovac. Results & Data Vital Signs (Past 12 Hours) Vital Signs Temp Pulse Resp BP Pulse Ox O2 Del Method 04/25/23 03:12 36.6 C 60 16 150/77 H 94 Room Air 04/24/23 22:48 36.7 C 67 16 133/65 95 Room Air 04/24/23 21:10 Room Air 04/24/23 19:25 36.6 C 64 18 134/78 95 Room Air Laboratory Results Laboratory Results WBC 13.77 K/ul (4.8-10.8) H 04/25/23 05:39 RBC 4.23 M/uL (4.70-6.10) L 04/25/23 05:39 Hgb 11.9 g/dl (14.0-18.0) L 04/25/23 05:39 Hct 36.3 % (42.0-52.0) L 04/25/23 05:39 MCV 85.8 fL (80.0-100.0) 04/25/23 05:39 MCH 28.1 pg (25.0-34.0) 04/25/23 05:39 MCHC 32.8 g/dL (32.0-36.0) 04/25/23 05:39 RDW Std Deviation 40.5 fL (36.4-46.3) 04/25/23 05:39 RDW Coeff of Valdo 13.0 % (11.5-14.5) 04/25/23 05:39 Plt Count 160 K/uL (130-400) 04/25/23 05:39 MPV 11.5 fL (9.4-12.4) 04/25/23 05:39 Sodium 139 mmol/L (136-145) 04/25/23 05:39 Potassium 4.1 mmol/L (3.5-5.1) 04/25/23 05:39 Chloride 105 mmol/L (98-107) 04/25/23 05:39 Carbon Dioxide 29 mmol/L (21-32) 04/25/23 05:39 Anion Gap 5 (3-11) 04/25/23 05:39 BUN 14 mg/dl (6-23) 04/25/23 05:39 Creatinine 0.84 mg/dl (0.6-1.4) 04/25/23 05:39 Est Cr Clr Drug Dosing 108.1 ml/min 04/25/23 05:39 Est GFR ( Amer) 104.3 ml/min 04/25/23 05:39 Est GFR (Non-Af Amer) 90.0 ml/min 04/25/23 05:39 BUN/Creatinine Ratio 16.7 (10-20) 04/25/23 05:39 Glucose 123 mg/dl (70-99(Fasting)) H 04/25/23 05:39 POC Glucose 88 mg/dl (70-99) 04/24/23 10:33 Calcium 8.9 mg/dl (8.6-10.3) 04/25/23 05:39 Impressions Knee X-Ray 04/24/23 10:33 XR knee RT 1 or 2V routine CLINICAL HISTORY: Surgical Post Op TECHNIQUE: 2 views of the right knee were obtained. Comparison: Comparison is made to knee radiographs 02/05/2023 FINDINGS: Patient is status post total knee arthroplasty with expected postsurgical changes including soft tissue swelling and subcutaneous emphysema. No periarticular lucency or hardware fracture is seen. IMPRESSION: Expected postoperative appearance status post placement of total knee arthroplasty. ACT 112: Negative or not required by law. Electronically signed by: Rony Pascual M.D. 04/24/2023 10:55 AM
[2023-04-25] MEDS: ASPIRIN 81 MG ECTAB PO SCH (08:22)
[2023-04-25] MEDS: CeleBREX 200 MG CAP PO SCH (08:23)
[2023-04-25] MEDS: DOCUSATE SODIUM 100 MG CAP PO SCH (08:23)
[2023-04-25] MEDS ORDERED: ATORVASTATIN 20 MG TAB PO SCH (09:00)
[2023-04-25] MEDS ORDERED: LOSARTAN POTASSIUM 50 MG TAB PO SCH (09:00)
[2023-04-25] MEDS ORDERED: CHOLECALCIFEROL 5,000 UNITS 125 MCG TAB PO SCH (09:00)
[2023-04-25] MEDS ORDERED: MULTIVITAMIN TAB PO SCH (09:00)
[2023-04-25] MEDS ORDERED: hydroCHLOROthiazide 25 MG TAB PO SCH (09:00)
--- NOTE | 2023-04-30 19:41 | Discharge Summary ---
Date of Service April 30, 2023 Admission HPI Per Admitting Provider Oniel is a pleasant 68-year-old male who presented for preop evaluation prior to right total knee replacement, he has a longstanding history of right knee pain which is gradually worsening and now affecting his daily activities. He underwent a left total knee replacement about a year ago and responded well. In regards to his right knee, he tried oral anti-inflammatories Tylenol, corticosteroid injection as well as viscosupplementation without relief. At this point time he has failed conservative measures and he would like to proceed with a right total knee replacement Admission Exam Per Admitting Provider Physical Exam: HT: 5ft 6in WT: 131.5kg Constitutional: WD/WN, vitals as above no acute distress Respiratory: normal respiratory effort, lungs clear to auscultation no respiratory distress, no labored breathing and does not use accessory muscles Cardiovascular: RRR, no murmur, no edema Gastrointestinal (Abdomen): normal bowel sounds, soft, nontender, no hepatosplenomegaly Musculoskeletal: Knee: + knee abnormal to inspection (RIGHT KNEE), + effusion (+1 effusion), + limited ROM of knee (ROM 0/3/110), + knee ROM with crepitation, + joint line tenderness (medial joint line) and + Steven's sign positive; no deformity, no skin erythema, no ecchymosis, no valgus laxity, no varus laxity, anterior drawer test negative, Devon's sign negative and pivot shift test negative Principal Diagnosis Right Knee Osteoarthritis Discharge Data Allergies Allergy/AdvReac Type Severity Reaction Status Date / Time chlorhexidine Allergy Severe Verified 04/24/23 06:52 Procedures Performed Operation Date: 04/24/23 08:15 Actual Procedures p Right Total Knee Arthroplasty(Right) - Vladimir Dominguez DO Ordered Studies 04/24/23 05:00 US - OR guided needle placemen Routine Hospital Course (1) Arthritis of right knee: [place] [address] Orthopedic Progress Note Signed Patient: ONIEL PATEL Admit Date: 04/24/23 MR#: [id number] Att Phy: Vladimir Dominguez,Fortino Acct ID: [id number] Stephanie Phy: Jesus Cornejo MD Date: 1955 Fam Phy: Age: 68 Location: 3E Sex: M Room/Bed: E320-1 cc: ~ *NOTICE TO RECEIVING [employer]/AGENCY This information is strictly Confidential and protected under [place] law. [place] law prohibits you from making any further disclosure of this information unless further disclosure is expressly permitted by the written consent of the person to whom it pertains or is authorized by law. A general authorization for the release of medical or other information is not sufficient for this purpose. Hospital accepts no responsibility if the information is made available to any other person, INCLUDING THE PATIENT. Date of Service April 25, 2023 Assessment & Plan (1) Arthritis of right knee: Plan: Day 1 status post right total knee arthroplasty PT/OT protocols. Weightbearing as tolerated. DVT prophylaxis-aspirin p.o. twice daily, SCDs, JEFRY mercedes. Pain management as written. DC planning-patient is planning for home health services upon discharge . Plan for discharge home today if progressing with PT. Admission and Anticipated Discharge Date Admission Date: April 24, 2023 Subjective Postop day 1 Patient sitting up in bed awake and alert. No complaints this morning. Pain is controlled. Denies shortness of breath, chest pain, lightheadedness. He is hoping to go home today. Physical Exam Physical Exam: Dressings are clean, dry, and intact. Calves are soft nontender. Neurovascular intact. Toes are mobile. Drain has been removed. He was having decreased drainage from the Hemovac. Results & Data Vital Signs (Past 12 Hours) Vital Signs Temp Pulse Resp BP Pulse Ox O2 Del Method 04/25/23 03:12 36.6 C 60 16 150/77 H 94 Room Air 04/24/23 22:48 36.7 C 67 16 133/65 95 Room Air 04/24/23 21:10 Room Air 04/24/23 19:25 36.6 C 64 18 134/78 95 Room Air Laboratory Results Laboratory Results WBC 13.77 K/ul (4.8-10.8) H 04/25/23 05:39 RBC 4.23 M/uL (4.70-6.10) L 04/25/23 05:39 Hgb 11.9 g/dl (14.0-18.0) L 04/25/23 05:39 Hct 36.3 % (42.0-52.0) L 04/25/23 05:39 MCV 85.8 fL (80.0-100.0) 04/25/23 05:39 MCH 28.1 pg (25.0-34.0) 04/25/23 05:39 MCHC 32.8 g/dL (32.0-36.0) 04/25/23 05:39 RDW Std Deviation 40.5 fL (36.4-46.3) 04/25/23 05:39 RDW Coeff of Valdo 13.0 % (11.5-14.5) 04/25/23 05:39 Plt Count 160 K/uL (130-400) 04/25/23 05:39 MPV 11.5 fL (9.4-12.4) 04/25/23 05:39 Sodium 139 mmol/L (136-145) 04/25/23 05:39 Potassium 4.1 mmol/L (3.5-5.1) 04/25/23 05:39 Chloride 105 mmol/L (98-107) 04/25/23 05:39 Carbon Dioxide 29 mmol/L (21-32) 04/25/23 05:39 Anion Gap 5 (3-11) 04/25/23 05:39 BUN 14 mg/dl (6-23) 04/25/23 05:39 Creatinine 0.84 mg/dl (0.6-1.4) 04/25/23 05:39 Est Cr Clr Drug Dosing 108.1 ml/min 04/25/23 05:39 Est GFR ( Amer) 104.3 ml/min 04/25/23 05:39 Est GFR (Non-Af Amer) 90.0 ml/min 04/25/23 05:39 BUN/Creatinine Ratio 16.7 (10-20) 04/25/23 05:39 Glucose 123 mg/dl (70-99(Fasting)) H 04/25/23 05:39 POC Glucose 88 mg/dl (70-99) 04/24/23 10:33 Calcium 8.9 mg/dl (8.6-10.3) 04/25/23 05:39 Impressions Knee X-Ray 04/24/23 10:33 XR knee RT 1 or 2V routine CLINICAL HISTORY: Surgical Post Op TECHNIQUE: 2 views of the right knee were obtained. Comparison: Comparison is made to knee radiographs 02/05/2023 FINDINGS: Patient is status post total knee arthroplasty with expected postsurgical changes including soft tissue swelling and subcutaneous emphysema. No periarticular lucency or hardware fracture is seen. IMPRESSION: Expected postoperative appearance status post placement of total knee arthroplasty. ACT 112: Negative or not required by law. Electronically signed by: Rony Pascual M.D. 04/24/2023 10:55 AM Signed By: <Electronically signed by Vladimir Dominguez DO> 04/25/23 0719 <Electronically signed by Demetrius Patton PA-C> 04/25/23715 Created: 04/25/23712 Total Time Total Time Spent Total Time Spent (In Minutes): 5 Discharge Plan Discharge Items Patient Disposition: Home - Home Health Services Reason For Visit: Right Knee Osteoarthritis Discharge Diagnosis: Right knee osteoarthritis Activity: Per Instructions section Weightbearing: Full weightbearing Non-emergency contact: Surgeon Call non-emergency contact if: you have any medication questions, your pain is not controlled, your temperature is above 101.5, your wound has increased redness and your wound has increased drainage Follow-up/Referrals: Vladimir Dominguez DO [Surgeon] - (Follow-up with Dr. Dominguez in 2 weeks from the day of surgery for your first postoperative visit) Jesus Cornejo MD [Primary Care Provider] - Diet: Regular Addtl Attending Provider Instructions: ACTIVITY RECOMMENDATIONS: SELF CARE INSTRUCTIONS AFTER TOTAL KNEE REPLACEMENT A. You may need to continue a physical therapy program after discharge from the hospital. There are several options available to you. Your doctor will assist you in selecting the best one for you. 1. An out-patient facility 2 to 3 times a week for therapy or home therapy. 2. Continue working on all exercises taught to you in the hospital. Your goals should be to increase bending of your knee to 90 degrees and beyond and to fully straighten your knee. B. You may progress at your own pace from walking with a walker or crutches to a cane; then to no assistive devices. C. Make walking a part of your daily routine. Be up as much as comfortable with rest periods throughout the day. Rest with leg elevation is very important. Use the ice wrap frequently for the first 3-4 weeks. D. There are no restrictions on activities. You may ride in a car, shop, participate in electrical appliance servicer and all social activities. E. Wear the long elastic stockings (JEFRY hose) 20 hours a day for 2 weeks after surgery. They can be removed several times a day for laundering and for a bath. F. You may shower, no tub baths until cleared by your doctor. SPECIAL CARE INSTRUCTIONS: VERY IMPORTANT TO READ AND REVIEW A. There are a few signs you need to watch for after you are home. Call [facility] if you notice any of the followin. Increased severe knee pain. Some pain is expected especially when you exercise. 2. Increased swelling in your leg or knee; pain or swelling of the calf muscle in either lower leg. 3. Any fluid drainage from the incision. 4. Shortness of breath or chest pain. B. Please call [facility] at if you have any concerns or questions about your operation or recovery. The doctor or his nurse will return your call promptly. C. You must take antibiotics before dental work, bladder, bowel or other surgery. Your doctor will provide you with a permanent care to carry describing this precaution. IMPORTANT: * REMEMBER TO TAKE ASPIRIN, 81 MG, TWICE DAILY FOR 4 WEEKS UNLESS OTHERWISE DIRECTED. THIS IS YOUR BLOOD THINNER. * CALL IF INCREASED PAIN, REDNESS, DRAINAGE OR FEVER GREATER THAT 101. * WEAR JEFRY HOSE 20 HOURS PER DAY FOR 2 WEEKS. * DAYSI Dressing - This is a large suction dressing covering your incision. This will help pull any excess drainage from the wound and allow your incision to heal properly. You may shower with this if you can keep the unit outside of the shower. If any bleeding or leakage is noted please call your doctor's office. This will remain on your incision for 7 days and then should be removed. This can be done yourself or by the home nursing staff if applicable. The entire unit is disposable once removed. Once removed, keep incision clean and dry. If redness or drainage is noted, please call your surgeon. . After your daysi dressing has been removed, please follow wound care instructions below. * DERMABOND Prineo- This is a mesh tape dressing that is covered with glue. It should remain in place until the incision is properly healed, usually 10-14 days. This dressing is designed to naturally slough off. You may trim the excess mesh tape as it peels off. Incision may be briefly wet in a shower. Dry immediately by blotting with a clean, dry towel. Do not bath or swim until instructed by your doctor. Do not scratch, rub, or pick at the dressing. Do not apply any topical ointments or lotions until dressing is completely removed and/or instructed by your doctor. There may be a small piece of suture material at one end of your incision. Do not pull or trim this. If it is bothersome or catching on clothing, you may cover it with a band-aid. FOLLOW UP VISIT: If appointment is not already scheduled: Please call [facility] to make a follow-up appointment for 2 weeks after your surgery at . Stand-Alone Forms: [facility] ([employer]), Smoking Cessation Medications and DC Order Prescriptions: New celecoxib [Celebrex] 200 mg Capsule 200 mg PO BID 14 Days Qty: 28 0RF aspirin 81 mg Tablet,Delayed Release (Dr/Ec) 81 mg PO BID 30 Days Qty: 60 0RF acetaminophen [Tylenol Extra Strength] 500 mg Tablet 1,000 mg PO Q8 14 Days Qty: 84 0RF cefadroxil 500 mg capsule 500 mg PO BID Qty: 28 1RF polyethylene glycol 3350 [Miralax] 17 gram powder in packet 17 g PO DAILY PRN (Reason: constipation) Qty: 5 0RF oxycodone 5 mg tablet 5 mg PO Q4H MDD 6 PRN (Reason: pain) Qty: 30 0RF Continued baclofen 10 mg tablet 10 mg PO BID PRN (Reason: muscle spasms) Vitafusion 1 tab PO QAM atorvastatin 20 mg tablet 20 mg PO QAM hydrochlorothiazide 12.5 mg Tablet 12.5 mg PO QAM losartan [Cozaar] 100 mg tablet 100 mg PO QAM cholecalciferol (vitamin D3) [Vitamin D3] 125 mcg (5,000 unit) Tablet 125 mcg PO QAM docusate sodium [Stool Softener] 100 mg Capsule 100 mg PO DAILY Discontinued aspirin [Adult Low Dose Aspirin] 81 mg tablet,delayed release (DR/EC) 81 mg PO QAM diclofenac sodium 75 mg Tablet,Delayed Release (Dr/Ec) 75 mg PO DAILY Krames/Other Patient Handouts: Knee Replace Home Recovery Admission Data Admit Date/Time: 04/24/23 10:33 Attending Provider: Vladimir Dominguez Admit Provider: Vladimir Dominguez Primary Care Provider: Jesus Cornejo Other Providers: [place] Other Interventions: Discharge Summary Assessment (RN) Last Done: 04/25/23 08:47
== END 2023-04-25 10:51 | disposition home health service (06) ==
LOC: ASU 06:16 → 3E 06:16